=== PATIENT | male | born 1955 | race Caucasian/White ===

== ENCOUNTER → 2017-07-30 | Outpatient (CLI) | payer OTHER ==
--- NOTE | 2017-07-30 14:59 | MR ---
EXAMINATION TYPE: MR hip RT wo con DATE OF EXAM: 07/30/2017 COMPARISON: NONE HISTORY: Right hip pain TECHNIQUE: Standard multiplanar, multisequence MRI departmental protocol Multiplanar, multisequence images of the right were acquired. FINDINGS: The bilateral femoral heads maintain their normal rounded contours. No T1 hypointense linea r fracture line is identified. No subchondral fracture or evidence of avascular necrosis of either hi p. Well-circumscribed T2 predominantly hyperintense nodularity central zone is seen of the prostate glan d, likely related to benign prostate hyperplasia. No evidence of bowel dilation. Major flow voids are maintained. Bilateral hydroceles are partially visualized. With regards to the right hip there is acetabular roof sclerosis, small acetabular roof subchondral c ysts, and acetabular sourcil marginal osteophyte. There is no cam deformity of the femoral head neck junction. Although there is limitation of evaluation of the labrum on this nonarthrographic study the re appears to be sharply demarcated labral tear and detachment on PD sagittal oblique fat sat image 1 6 and 15 of the anterior labrum. Fluid is seen overlying the insertion site of the left gluteal musculature representing gluteal/great er trochanteric bursitis. Small amount of right subcutaneous edema is seen laterally over the gluteal musculature. Osseous bone marrow signal is within normal limits. There is a trace amount of left flu id within the the femoral acetabular joint. IMPRESSION: 1. Moderate left femoral acetabular arthropathy. 2. Findings suspicious for anterior superior labral tear and detachment. 3. Left greater trochanteric bursitis. 4. Small amount of subcutaneous edema lateral to the right gluteal musculature. 5. No evidence of femoral fracture or avascular necrosis. 6. Partially visualized bilateral hydroceles. 7. Partially visualized nodular changes of the prostate, possibly related to BPH.
== END | disposition home or self-care (01) ==
LOC: RADMRIMAIN 13:30
PROVIDERS: ATTEND Orthopaedic Surgery
DX: M70.61 Trochanteric bursitis, right hip (principal); M12.851 Other specific arthropathies, not elsewhere classified, right hip

== ENCOUNTER 2018-01-08 20:54 | Emergency (ER) | payer OTHER ==
[2018-01-08 21:08] VITALS: BP 171/73; PULSE 66; RESP 18; TEMP 96.9
[2018-01-08] MEDS ORDERED: IBUPROFEN 600 MG TAB PO STA (21:09)
--- NOTE | 2018-01-08 21:16 | ED ---
Upper Extremity HPI - General Chief Complaint: Extremity Injury, Upper Stated Complaint: fall/wrist injury-[facility] Time Seen by Provider: 01/08/18 21:01 Source: patient, RN notes reviewed Mode of arrival: ambulatory Limitations: no limitations - History of Present Illness Initial Comments: This is a 62-year-old male who presents to the emergency department with chief complaint of work-related right wrist/hand injury. 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 He states that he was walking and tripped. He states that he fell on an outstretched right hand. Patient complains of pain to the palmar aspect of his hand as well as the mid ventral wrist. Patient states that 7-8 weeks ago he had surgery performed by Dr. Nash Troy for trigger finger and carpal tunnel. Patient complains that after the fall, he is having difficulty making a fist due to the pain. Patient denies any other injuries or trauma. Denies fevers or chills, chest pain shortness of breath, abdominal pain, nausea or vomiting, dizziness or headache. - Related Data Allergies Allergy/AdvReac Type Severity Reaction Status Date / Time No Known Allergies Allergy Verified 01/08/18 21:07 Review of Systems ROS Statement: Those systems with pertinent positive or pertinent negative responses have been documented in the HPI. ROS Other: All systems not noted in ROS Statement are negative. Past Medical History Past Medical History: Hypertension History of Any Multi-Drug Resistant Organisms: None Reported Past Surgical History: Orthopedic Surgery Past Psychological History: No Psychological Hx Reported Smoking Status: Never smoker Past Alcohol Use History: None Reported General Exam - General Exam Comments Initial Comments: General: Awake and alert, well-developed; in no apparent distress. HEENT: Head atraumatic, normocephalic. Pupils are equal, round and reactive to light. Extraocular movements intact. Oropharynx moist without erythema or exudate. Neck: Supple. Normal ROM. Cardiovascular: Regular rate and rhythm. No murmurs, rubs or gallops. Chest symmetrical. Respiratory: Lungs clear to auscultation bilaterally. No wheezes, rales or rhonchi. Normal respiratory effort with no use of accessory muscles. Musculoskeletal: Well-healed incisional scars from carpal tunnel and trigger finger surgeries. Tenderness on palpation along length of palm midline. Patient has difficulty making a fist due to pain. Normal range of motion of the wrist and fingers. Sensation is intact. Radial pulses are 2+ equal and palpable bilaterally. No obvious respiratory distress. Skin: Waterflow, warm and dry without rashes or lesions. Neurological: Alert and oriented x3. CN II-XII grossly intact. Speech is fluent and answers are appropriate. No focal neuro deficits. Psychiatric: Normal mood and affect. No overt signs of depression or anxiety noted. Limitations: no limitations Course Vital Signs 01/08/18 21:05 Temperature 96.9 F L Pulse Rate 66 Respiratory 18 Rate Blood Pressure 171/73 O2 Sat by Pulse 95 Oximetry Medical Decision Making - Medical Decision Making This is a 62-year-old male who presents to the emergency department with chief complaint of work-related right hand/wrist injury. Patient states he fell on an alt stretched hand after tripping at work this evening. Patient reports trigger finger and carpal tunnel surgery 7-8 weeks ago. He states that he is having pain over his palm and is nervous that he messed up his surgery. 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 Denies any other injuries or trauma. X-rays of the right wrist and hand were obtained and revealed no acute abnormalities. Recommended that patient follow-up with Dr. Troy within 1-2 days for evaluation. Patient is in agreement with plan and voices understanding. He is in no acute distress and will be discharged home at this time. All questions answered. - Radiology Data Radiology results: report reviewed, image reviewed X-ray right wrist impression: No acute process. X-ray right hand impression: No acute process. Disposition Clinical Impression: Hand contusion Disposition: HOME SELF-CARE Condition: Good Instructions: Contusion in Children (ED), RICE Therapy (ED) Additional Instructions: Please follow-up with Dr. Troy within 1-2 days. Please rest, ice and take ibuprofen or Tylenol as needed for pain. Please follow up with primary care provider within 1-2 days. Return to emergency department if symptoms should worsen or any concerns arise. Is patient prescribed a controlled substance at d/c from ED?: No Referrals: Nicki Emerson MD [Primary Care Provider] - 1-2 days Jasen Troy DO [Doctor of Osteopathic Medicine] - 1-2 days Time of Disposition: 21:56
--- NOTE | 2018-01-08 21:45 | XR ---
PROCEDURE: XR hand complete RT 3 views DATE AND TIME: 01/08/2018 9:25 PM REFERRING PHYSICIAN: Risa Parsons CLINICAL INDICATION: PHH, pain injury TECHNIQUE: Department protocol. COMPARISON: None FINDINGS: There is no fracture or malalignment. The soft tissues are unremarkable. IMPRESSION: NO ACUTE PROCESS.
--- NOTE | 2018-01-08 21:46 | XR ---
PROCEDURE: XR wrist complete RT 4 views DATE AND TIME: 01/08/2018 9:28 PM REFERRING PHYSICIAN: Risa Parsons CLINICAL INDICATION: PHH, Pain TECHNIQUE: Department protocol. COMPARISON: None FINDINGS: There is no fracture or malalignment. The soft tissues are unremarkable. IMPRESSION: NO ACUTE PROCESS.
== END 2018-01-08 22:42 | disposition home or self-care (01) ==
LOC: EC 20:54
DX: S60.221A Contusion of right hand, initial encounter (principal); Z98.890 Other specified postprocedural states; W01.0XXA Fall on same level from slipping, tripping and stumbling without subsequent striking against object, initial encounter; Y93.01 Activity, walking, marching and hiking; Y92.69 Other specified industrial and construction area as the place of occurrence of the external cause; Y99.0 Civilian activity done for income or pay
CPT/HCPCS: 99283

== ENCOUNTER → 2018-05-06 | Outpatient (CLI) | payer OTHER ==
--- NOTE | 2018-05-07 10:02 | XR ---
EXAM TYPE: LUMBAR SPINE X RAY SERIES COMPARISON: NONE HISTORY: Lower back pain TECHNIQUE: 4 views are submitted. FINDINGS: Alignment is anatomic. The pedicles are intact. The transverse processes are intact. There is no s pondylolysis or spondylolisthesis. Multilevel vacuum disc and severe degenerative disc disease seen. Multilevel facet arthropathy identified. Vascular calcifications noted IMPRESSION: 1. Multilevel severe degenerative disc disease consider MRI follow-up.
== END | disposition home or self-care (01) ==
LOC: RADXRYALE 16:18
PROVIDERS: ATTEND Internal Medicine
DX: M51.36 Other intervertebral disc degeneration, lumbar region (principal)
CPT/HCPCS: 72110

== ENCOUNTER 2018-06-18 12:35 | Observation (INO) | payer OTHER ==
[2018-06-18] MEDS ORDERED: ASPIRIN 81 MG PO STA (13:03)
[2018-06-18] MEDS ORDERED: NITROGLYCERIN OINT 1 INCH/GM PACKET TOPICAL STA (13:03)
--- NOTE | 2018-06-18 13:06 | ED ---
General Adult HPI - General Chief complaint: Chest Pain Stated complaint: chest pain Time Seen by Provider: 06/18/18 12:48 Source: patient, RN notes reviewed, old records reviewed (Including computed tomography scan) Mode of arrival: wheelchair Limitations: no limitations - History of Present Illness Initial comments: Patient is a pleasant 8-year-old male returning to the emergency Department with complaints of chest discomfort. Patient has been in the hospital twice recently with similar symptoms. Patient has left AGAINST MEDICAL ADVICE twice recently. Patient states the second time he left because his insurance was about to run out. Patient has followed up with crime scene specialist and was advised again to come back to the emergency department with similar recommendations of needing heart catheterization. Patient states no discomfort at this time. Patient states he has been having symptoms for months or more. Patient states she has an ache in the left breast. No radiation. Patient did have dyspnea however that has not been a problem over the past couple of weeks. No associated nausea or diaphoresis. Patient has been fatigued. - Related Data Home Medications Medication Instructions Recorded Confirmed Lisinopril [Zestril] 10 mg PO DAILY 05/29/18 06/18/18 [place]-3 Fatty Acids/Fish Oil [Fish 1 cap PO DAILY 05/29/18 06/18/18 Oil 1,000 mg Softgel] Simvastatin [Zocor] 10 mg PO DAILY 05/29/18 06/18/18 Terazosin HCl 10 mg PO DAILY 05/29/18 06/18/18 Vit C/E/Zn/Coppr/Lutein/Zeaxan 1 cap PO DAILY 05/29/18 06/18/18 [Preservision Areds 2 Softgel] amLODIPine [Norvasc] 5 mg PO DAILY 05/29/18 06/18/18 Albuterol Inhaler [Ventolin Hfa 2 puff INHALATION RT-Q4H PRN 06/13/18 06/18/18 Inhaler] traZODone HCL [TraZODone HCl] 50 mg PO HS 06/13/18 06/18/18 Aspirin [Racine Aspirin EC] 81 mg PO BID 06/18/18 06/18/18 Ibuprofen [Motrin Ib] 600 mg PO BID 06/18/18 06/18/18 Allergies Allergy/AdvReac Type Severity Reaction Status Date / Time No Known Allergies Allergy Verified 12/05/18 12:46 Review of Systems ROS Statement: Those systems with pertinent positive or pertinent negative responses have been documented in the HPI. ROS Other: All systems not noted in ROS Statement are negative. Constitutional: Denies: fever Eyes: Denies: eye pain ENT: Denies: ear pain Respiratory: Reports: as per HPI Cardiovascular: Reports: chest pain Endocrine: Reports: fatigue Gastrointestinal: Denies: abdominal pain Genitourinary: Denies: dysuria Musculoskeletal: Denies: arthralgia Skin: Denies: rash Neurological: Denies: weakness Past Medical History Past Medical History: Hyperlipidemia, Hypertension, Prostate Disorder History of Any Multi-Drug Resistant Organisms: None Reported Past Surgical History: Appendectomy, Orthopedic Surgery, Tonsillectomy Past Psychological History: No Psychological Hx Reported Smoking Status: Former smoker Past Alcohol Use History: None Reported Past Drug Use History: None Reported General Exam Limitations: no limitations General appearance: alert, in no apparent distress Head exam: Present: atraumatic Eye exam: Present: normal appearance, PERRL ENT exam: Present: normal oropharynx Neck exam: Present: normal inspection Respiratory exam: Present: normal lung sounds bilaterally. Absent: chest wall tenderness Cardiovascular Exam: Present: regular rate, normal rhythm Expanded Peripheral pulses: 2+: Radial (R), Radial (L), Dorsalis Pedis (R), Dorsalis Pedis (L) GI/Abdominal exam: Present: soft. Absent: tenderness Extremities exam: Present: normal inspection. Absent: pedal edema, calf tenderness Neurological exam: Present: alert Psychiatric exam: Present: normal affect, normal mood Skin exam: Present: normal color Course Vital Signs 06/18/18 06/18/18 06/18/18 12:44 12:46 12:53 Temperature 98.5 F Pulse Rate 73 Pulse Rate [ 65 Ballroom Dancer ] Respiratory 18 Rate Blood Pressure 113/76 O2 Sat by Pulse 96 94 L Oximetry 06/18/18 06/18/18 06/18/18 13:00 14:00 15:00 Temperature Pulse Rate 71 65 69 Pulse Rate [ Ballroom Dancer ] Respiratory 16 16 16 Rate Blood Pressure 157/86 131/71 128/76 O2 Sat by Pulse 97 94 L 94 L Oximetry - Reevaluation(s) Reevaluation #1: 06/18/18 15:49 Case was discussed in detail with Dr. Hassan, who will admit covering for Dr. Emerson. EKG Findings - EKG Comments: EKG Findings:: Normal sinus rhythm 70. W[place] 156. QRS 108. QT 394. QTC 425. Left axis. Q waves V1 and V2. T wave inversion in V6. Medical Decision Making - Medical Decision Making Patient reevaluated and resting comfortably in bed. Symptom-free at this time. Patient and family updated on results and plan. Dr. Damon has been paged covering for Dr. Emerson. Cardiology and cardiothoracic surgeon will be consult. - Lab Data Result diagrams: 06/18/18 13:05 06/18/18 13:05 Lab Results 06/18/18 06/18/18 06/18/18 Range/Units 13:05 13:05 13:05 WBC 8.5 (3.8-10.6) k/uL RBC 4.76 (4.30-5.90) m/uL Hgb 14.8 (13.0-17.5) gm/dL Hct 45.0 (39.0-53.0) % MCV 94.5 (80.0-100.0) fL MCH 31.1 (25.0-35.0) pg MCHC 32.9 (31.0-37.0) g/dL RDW 13.2 (11.5-15.5) % Plt Count 201 (150-450) k/uL Neutrophils % 75 % Lymphocytes % 15 % Monocytes % 5 % Eosinophils % 2 % Basophils % 1 % Neutrophils # 6.4 (1.3-7.7) k/uL Lymphocytes # 1.3 (1.0-4.8) k/uL Monocytes # 0.4 (0-1.0) k/uL Eosinophils # 0.2 (0-0.7) k/uL Basophils # 0.1 (0-0.2) k/uL PT (9.0-12.0) sec INR (<1.2) APTT (22.0-30.0) sec Sodium 142 (137-145) mmol/L Potassium 4.6 (3.5-5.1) mmol/L Chloride 110 H (98-107) mmol/L Carbon Dioxide 27 (22-30) mmol/L Anion Gap 5 mmol/L BUN 24 H (9-20) mg/dL Creatinine 0.89 (0.66-1.25) mg/dL Est GFR (CKD-EPI)AfAm >90 (>60 ml/min/1.73 sqM) Est GFR (CKD-EPI)NonAf >90 (>60 ml/min/1.73 sqM) Glucose 108 H (74-99) mg/dL Calcium 9.2 (8.4-10.2) mg/dL Magnesium 2.0 (1.6-2.3) mg/dL Total Bilirubin 0.7 (0.2-1.3) mg/dL AST 20 (17-59) U/L ALT 27 (21-72) U/L Alkaline Phosphatase 56 (38-126) U/L Total Creatine Kinase 83 (55-170) U/L CK-MB (CK-2) 2.2 (0.0-2.4) ng/mL CK-MB (CK-2) Rel Index 2.7 Troponin I 0.016 (0.000-0.034) ng/mL Total Protein 6.5 (6.3-8.2) g/dL Albumin 3.7 (3.5-5.0) g/dL 06/18/ Range/Units 13:05 WBC (3.8-10.6) k/uL RBC (4.30-5.90) m/uL Hgb (13.0-17.5) gm/dL Hct (39.0-53.0) % MCV (80.0-100.0) fL MCH (25.0-35.0) pg MCHC (31.0-37.0) g/dL RDW (11.5-15.5) % Plt Count (150-450) k/uL Neutrophils % % Lymphocytes % % Monocytes % % Eosinophils % % Basophils % % Neutrophils # (1.3-7.7) k/uL Lymphocytes # (1.0-4.8) k/uL Monocytes # (0-1.0) k/uL Eosinophils # (0-0.7) k/uL Basophils # (0-0.2) k/uL PT 9.8 (9.0-12.0) sec INR 0.9 (<1.2) APTT 22.4 (22.0-30.0) sec Sodium (137-145) mmol/L Potassium (3.5-5.1) mmol/L Chloride (98-107) mmol/L Carbon Dioxide (22-30) mmol/L Anion Gap mmol/L BUN (9-20) mg/dL Creatinine (0.66-1.25) mg/dL Est GFR (CKD-EPI)AfAm (>60 ml/min/1.73 sqM) Est GFR (CKD-EPI)NonAf (>60 ml/min/1.73 sqM) Glucose (74-99) mg/dL Calcium (8.4-10.2) mg/dL Magnesium (1.6-2.3) mg/dL Total Bilirubin (0.2-1.3) mg/dL AST (17-59) U/L ALT (21-72) U/L Alkaline Phosphatase (38-126) U/L Total Creatine Kinase (55-170) U/L CK-MB (CK-2) (0.0-2.4) ng/mL CK-MB (CK-2) Rel Index Troponin I (0.000-0.034) ng/mL Total Protein (6.3-8.2) g/dL Albumin (3.5-5.0) g/dL - Radiology Data Radiology results: image reviewed (Chest x-ray has concern for aneurysmal aorta. ) Disposition Clinical Impression: Chest pain Disposition: ADMITTED IP TO THIS HOSP Is patient prescribed a controlled substance at d/c from ED?: No Decision Time: 15:00
[2018-06-18 13:40] LABS: Basophils # (A) 0.1 k/uL (0-0.2); Basophils % (A) 1 %; Eosinophils # (A) 0.2 k/uL (0-0.7); Eosinophils % (A) 2 %; HGB 14.8 gm/dL (13.0-17.5); Lymphocytes # (A) 1.3 k/uL (1.0-4.8); Lymphocytes % (A) 15 %; MCH 31.1 pg (25.0-35.0); MCHC 32.9 g/dL (31.0-37.0); MCV 94.5 fL (80.0-100.0); Mean Platelet Volume 7.5; Monocytes # (A) 0.4 k/uL (0-1.0); Monocytes % (A) 5 %; Neutrophils # (A) 6.4 k/uL (1.3-7.7); Neutrophils % (A) 75 %; Platelet Count 201 k/uL (150-450); RBC 4.76 m/uL (4.30-5.90); RDW 13.2 % (11.5-15.5); WBC 8.5 k/uL (3.8-10.6)
[2018-06-18 13:48] LABS: ALT 27 U/L (21-72); AST 20 U/L (17-59); Albumin 3.7 g/dL (3.5-5.0); Alkaline Phosphatase 56 U/L (38-126); Anion Gap 5 mmol/L; Blood Urea Nitrogen 24 mg/dL (9-20); Calcium 9.2 mg/dL (8.4-10.2); Carbon Dioxide 27 mmol/L (22-30); Chloride 110 mmol/L (98-107); Glucose 108 mg/dL (74-99); Potassium 4.6 mmol/L (3.5-5.1); Sodium 142 mmol/L (137-145); Total Bilirubin 0.7 mg/dL (0.2-1.3); Total Protein 6.5 g/dL (6.3-8.2)
[2018-06-18 13:57] LABS: INR 0.9 (<1.2); Partial Thromboplastin Time 22.4 sec (22.0-30.0); Prothrombin Time 9.8 sec (9.0-12.0)
--- NOTE | 2018-06-18 14:19 | XR ---
EXAMINATION TYPE: XR chest 2V DATE OF EXAM: 06/18/2018 COMPARISON: Prior chest 06/13/2018 HISTORY: Chest pain TECHNIQUE: Frontal and lateral views of the chest are obtained. FINDINGS: There is no focal air space opacity, pleural effusion, or pneumothorax seen. The cardiac silhouette size is within normal limits. The osseous structures are intact. There are overlying car diac leads. Aorta is aneurysmal and tortuous, dense. Increased AP diameter chest could be indicative of COPD. Pulmonary artery appears prominently, correlate for underlying pulmonary artery hypertension . IMPRESSION: No acute cardiopulmonary process. Aortic aneurysm as noted on prior CT. Additional findi ngs above.
[2018-06-18 14:48] LABS: Creatine Kinase MB 2.2 ng/mL (0.0-2.4); Troponin I 0.016 ng/mL (0.000-0.034)
[2018-06-18] MEDS ORDERED: NITROGLYCERIN SL TABS 0.4 MG TAB SUBLINGUAL PRN (15:00)
[2018-06-18] MEDS ORDERED: ALBUTEROL NEBULIZED 2.5 MG/3 ML INHALATION PRN (15:01)
[2018-06-18 15:59] VITALS: RESP 18
--- NOTE | 2018-06-18 16:14 | P.GSCN ---
<Hattie Reyes - Last Filed: 06/18/18 16:01> History of Present Illness Consult date: 06/18/18 Reason for Consult: thoracic aneurysm, surgical recommendations Requesting physician: You Saucedo History of present illness: This is a 62-year-old gentleman who follows with Dr. Nicki Emerson on an outpatient basis. He has a previous medical history of hypertension, hyperlipidemia, prostate disorder, and previous tobacco dependence. He presented to [facility] emergency room complains of intermittent chest pain with with dyspnea but without radiation, nausea, or diaphoresis for the last couple of months. He has been previously to the emergency room twice however he left AGAINST MEDICAL ADVICE. He has followed up with cardiology who recommended he come in for heart catheterization. Chest x-ray was completed which demonstrated no acute cardiopulmonary process. Apparently he had a CT of the chest in May 2018 which ruled out pulmonary embolism but did demonstrate aneurysmal ascending aorta without dissection measuring 5 cm per the radiologist read. Since he is back in the emergency room Dr. Harrison from cardiothoracic surgery was consulted for surgical recommendations regarding ascending aortic aneurysm. Review of Systems Review of systems was completed and is negative except as noted. - Cardiovascular Reports chest pain, Reports dyspnea on exertion - Respiratory Reports cough, Reports dyspnea Past Medical History Past Medical History: Hyperlipidemia, Hypertension, Prostate Disorder History of Any Multi-Drug Resistant Organisms: None Reported Past Surgical History: Appendectomy, Orthopedic Surgery, Tonsillectomy Past Psychological History: No Psychological Hx Reported Smoking Status: Former smoker Past Alcohol Use History: None Reported Past Drug Use History: None Reported Medications and Allergies Home Medications Medication Instructions Recorded Confirmed Type Lisinopril [Zestril] 10 mg PO DAILY 05/29/18 06/18/18 History [place]-3 Fatty Acids/Fish Oil [Fish 1 cap PO DAILY 05/29/18 06/18/18 History Oil 1,000 mg Softgel] Simvastatin [Zocor] 10 mg PO DAILY 05/29/18 06/18/18 History Terazosin HCl 10 mg PO DAILY 05/29/18 06/18/18 History Vit C/E/Zn/Coppr/Lutein/Zeaxan 1 cap PO DAILY 05/29/18 06/18/18 History [Preservision Areds 2 Softgel] amLODIPine [Norvasc] 5 mg PO DAILY 05/29/18 06/18/18 History Albuterol Inhaler [Ventolin Hfa 2 puff INHALATION RT-Q4H PRN 06/13/18 06/18/18 History Inhaler] traZODone HCL [TraZODone HCl] 50 mg PO HS 06/13/18 06/18/18 History Aspirin [[place] Aspirin EC] 81 mg PO BID 06/18/18 06/18/18 History Ibuprofen [Motrin Ib] 600 mg PO BID 06/18/18 06/18/18 History Allergies Allergy/AdvReac Type Severity Reaction Status Date / Time No Known Allergies Allergy Verified 06/18/18 12:46 Surgical - Exam Vital Signs Temp Pulse Resp BP Pulse Ox 98.5 F 73 18 113/76 96 06/18/18 12:44 06/18/18 12:44 06/18/18 12:44 06/18/18 12:44 06/18/18 12:44 - General well developed, well nourished, no distress, no pain, obese - Eyes PERRL, normal ocular movement - ENT no hearing loss - Neck no masses, no bruits, trachea midline - Respiratory normal expansion, normal respiratory effort, clear to auscultation - Cardiovascular Rhythm: regular Heart Sounds: normal: S1, S2 - Abdomen Abdomen: soft, non tender, bowel sounds - Genitourinary deferred - Rectum deferred - Integumentary no rash, no growths - Neurologic normal coordination, normal sensation - Musculoskeletal normal gait, normal posture - Psychiatric oriented to time, oriented to person, oriented to place, speech is normal, memory intact Results - Labs 06/18/18 13:05 06/18/18 13:05 Abnormal Lab Results - Last 24 Hours (Table) 06/18/18 Range/Units 13:05 Chloride 110 H (98-107) mmol/L BUN 24 H (9-20) mg/dL Glucose 108 H (74-99) mg/dL Diabetes panel 06/18/18 Range/Units 13:05 Sodium 142 (137-145) mmol/L Potassium 4.6 (3.5-5.1) mmol/L Chloride 110 H (98-107) mmol/L Carbon Dioxide 27 (22-30) mmol/L BUN 24 H (9-20) mg/dL Creatinine 0.89 (0.66-1.25) mg/dL Glucose 108 H (74-99) mg/dL Calcium 9.2 (8.4-10.2) mg/dL AST 20 (17-59) U/L ALT 27 (21-72) U/L Alkaline Phosphatase 56 (38-126) U/L Total Protein 6.5 (6.3-8.2) g/dL Albumin 3.7 (3.5-5.0) g/dL Calcium panel 06/18/18 Range/Units 13:05 Calcium 9.2 (8.4-10.2) mg/dL Albumin 3.7 (3.5-5.0) g/dL Pituitary panel 06/18/18 Range/Units 13:05 Sodium 142 (137-145) mmol/L Potassium 4.6 (3.5-5.1) mmol/L Chloride 110 H (98-107) mmol/L Carbon Dioxide 27 (22-30) mmol/L BUN 24 H (9-20) mg/dL Creatinine 0.89 (0.66-1.25) mg/dL Glucose 108 H (74-99) mg/dL Calcium 9.2 (8.4-10.2) mg/dL Adrenal panel 06/18/18 Range/Units 13:05 Sodium 142 (137-145) mmol/L Potassium 4.6 (3.5-5.1) mmol/L Chloride 110 H (98-107) mmol/L Carbon Dioxide 27 (22-30) mmol/L BUN 24 H (9-20) mg/dL Creatinine 0.89 (0.66-1.25) mg/dL Glucose 108 H (74-99) mg/dL Calcium 9.2 (8.4-10.2) mg/dL Total Bilirubin 0.7 (0.2-1.3) mg/dL AST 20 (17-59) U/L ALT 27 (21-72) U/L Alkaline Phosphatase 56 (38-126) U/L Total Protein 6.5 (6.3-8.2) g/dL Albumin 3.7 (3.5-5.0) g/dL - Imaging Chest x-ray: report reviewed, image reviewed CT scan - chest: report reviewed, image reviewed Assessment and Plan (1) Hypertension Current Visit: Yes Status: Chronic Code(s): I10 - ESSENTIAL (PRIMARY) HYPERTENSION SNOMED Code(s): 35896310 (2) Hyperlipidemia Current Visit: Yes Status: Chronic Code(s): E78.5 - HYPERLIPIDEMIA, UNSPECIFIED SNOMED Code(s): 17938921 (3) Tobacco dependence in remission Current Visit: No Status: Resolved Code(s): F17.201 - NICOTINE DEPENDENCE, UNSPECIFIED, IN REMISSION SNOMED Code(s): 649094905 (4) Chest pain Current Visit: Yes Status: Acute Code(s): R07.9 - CHEST PAIN, UNSPECIFIED SNOMED Code(s): 14806577 (5) Ascending aortic aneurysm Current Visit: Yes Status: Chronic Code(s): I71.2 - THORACIC AORTIC ANEURYSM , WITHOUT RUPTURE SNOMED Code(s): 954656684 Plan: The patient was seen and examined at the bedside in the observation unit with Dr. Harrison. Chart/diagnostics were reviewed. No surgical intervention is warranted at this time however we would recommend follow-up CT of the chest 6 months and he can follow up with us in the office to discuss the findings. We further recommend good blood pressure control as well as no heavy lifting or physical exertion. 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 Medical management per primary care service. Chest pain management per cardiology. Thank you for this consult. Please call us with any questions. Time with Patient: Greater than 30 <Jose M Harrison R - Last Filed: 06/19/18 08:19> Surgical - Exam Vital Signs Temp Pulse Resp BP Pulse Ox 98.5 F 73 18 113/76 96 06/18/18 12:44 06/18/18 12:44 06/18/18 12:44 06/18/18 12:44 06/18/18 12:44 Results - Labs 06/18/18 13:05 06/18/18 13:05 Abnormal Lab Results - Last 24 Hours (Table) 06/18/18 06/18/18 Range/Units 13:05 18:51 D-Dimer 0.74 H (<0.60) mg/L FEU Chloride 110 H (98-107) mmol/L BUN 24 H (9-20) mg/dL Glucose 108 H (74-99) mg/dL Diabetes panel 06/18/18 06/19/18 Range/Units 13:05 01:45 Sodium 142 (137-145) mmol/L Potassium 4.6 (3.5-5.1) mmol/L Chloride 110 H (98-107) mmol/L Carbon Dioxide 27 (22-30) mmol/L BUN 24 H (9-20) mg/dL Creatinine 0.89 (0.66-1.25) mg/dL Glucose 108 H (74-99) mg/dL Calcium 9.2 (8.4-10.2) mg/dL AST 20 (17-59) U/L ALT 27 (21-72) U/L Alkaline Phosphatase 56 (38-126) U/L Total Protein 6.5 (6.3-8.2) g/dL Albumin 3.7 (3.5-5.0) g/dL Triglycerides 91 (<150) mg/dL HDL Cholesterol 59 (40-60) mg/dL Calcium panel 06/18/18 Range/Units 13:05 Calcium 9.2 (8.4-10.2) mg/dL Albumin 3.7 (3.5-5.0) g/dL Pituitary panel 06/18/18 Range/Units 13:05 Sodium 142 (137-145) mmol/L Potassium 4.6 (3.5-5.1) mmol/L Chloride 110 H (98-107) mmol/L Carbon Dioxide 27 (22-30) mmol/L BUN 24 H (9-20) mg/dL Creatinine 0.89 (0.66-1.25) mg/dL Glucose 108 H (74-99) mg/dL Calcium 9.2 (8.4-10.2) mg/dL Adrenal panel 06/18/18 Range/Units 13:05 Sodium 142 (137-145) mmol/L Potassium 4.6 (3.5-5.1) mmol/L Chloride 110 H (98-107) mmol/L Carbon Dioxide 27 (22-30) mmol/L BUN 24 H (9-20) mg/dL Creatinine 0.89 (0.66-1.25) mg/dL Glucose 108 H (74-99) mg/dL Calcium 9.2 (8.4-10.2) mg/dL Total Bilirubin 0.7 (0.2-1.3) mg/dL AST 20 (17-59) U/L ALT 27 (21-72) U/L Alkaline Phosphatase 56 (38-126) U/L Total Protein 6.5 (6.3-8.2) g/dL Albumin 3.7 (3.5-5.0) g/dL Assessment and Plan Assessment: 5.0 cm ascen ao aneurysm without CP Rec F/U CT scan 10/31 and outpt f/u
--- NOTE | 2018-06-18 18:17 | P.HPIM ---
History of Present Illness 62-year-old pleasant gentleman was admitted for chest pain patient has a pleuritic chest pain on the left lower chest, sharp in nature radiating from back plasmatic pain mild pain. No associated diaphoresis no associated shortness of breath although patient has shortness of breath going on for some years. Patient had on and off chest pains in the past he was told by his vmware consultant to go to the emergency department may need cardiac catheterization or further workup but patient didn't end up staying in the hospital for these procedures and workup because of lack of insurance. As of this pain again he came back to the hospital. EKG showed some flattening or inverted T waves on the lateral leads which are present on the old EKGs as well. Patient positive troponin is negative. Patient any fever chills cough nausea vomiting. Chest x- ray did not show any pneumonic process Review of Systems REVIEW OF SYSTEMS: CONSTITUTIONAL: No fever, no malaise, no fatigue. HEENT: No recent visual problems or hearing problems. Denied any sore throat. CARDIOVASCULAR: No orthopnea, PND, no palpitations, no syncope. PULMONARY: No shortness of breath, no cough, no hemoptysis. GASTROINTESTINAL: No diarrhea, no nausea, no vomiting, no abdominal pain. Normoactive bowel sounds. NEUROLOGICAL: No headaches, no weakness, no numbness. HEMATOLOGICAL: Denies any bleeding or petechiae. GENITOURINARY: Denies any burning micturition, frequency, or urgency. MUSCULOSKELETAL/RHEUMATOLOGICAL: Denies any joint pain, swelling, or any muscle pain. ENDOCRINE: Denies any polyuria or polydipsia. The rest of the 14-point review of systems is negative. Past Medical History Past Medical History: Hyperlipidemia, Hypertension, Prostate Disorder Additional Past Medical History / Comment(s): macular degeneration, 3-4 concussions in his life. History of Any Multi-Drug Resistant Organisms: None Reported Past Surgical History: Appendectomy, Orthopedic Surgery, Tonsillectomy Additional Past Surgical History / Comment(s): rt carpal tunnel release, colonoscopy/polypectomy(benign) Past Anesthesia/Blood Transfusion Reactions: No Reported Reaction Additional Past Anesthesia/Blood Transfusion Reaction / Comment(s): clausterphobia Smoking Status: Former smoker - Past Family History Mother Family Medical History: Cancer Additional Family Medical History / Comment(s): bone cancer Father Family Medical History: Coronary Artery Disease (CAD), Dementia Additional Family Medical History / Comment(s): cardiac stents Medications and Allergies Home Medications Medication Instructions Recorded Confirmed Type Lisinopril [Zestril] 10 mg PO DAILY 05/29/18 06/18/18 History [place]-3 Fatty Acids/Fish Oil [Fish 1 cap PO DAILY 05/29/18 06/18/18 History Oil 1,000 mg Softgel] Simvastatin [Zocor] 10 mg PO DAILY 05/29/18 06/18/18 History Terazosin HCl 10 mg PO DAILY 05/29/18 06/18/18 History Vit C/E/Zn/Coppr/Lutein/Zeaxan 1 cap PO DAILY 05/29/18 06/18/18 History [Preservision Areds 2 Softgel] amLODIPine [Norvasc] 5 mg PO DAILY 05/29/18 06/18/18 History Albuterol Inhaler [Ventolin Hfa 2 puff INHALATION RT-Q4H PRN 06/13/18 06/18/18 History Inhaler] traZODone HCL [TraZODone HCl] 50 mg PO HS 06/13/18 06/18/18 History Aspirin [[place] Aspirin EC] 81 mg PO BID 06/18/18 06/18/18 History Ibuprofen [Motrin Ib] 600 mg PO BID 06/18/18 06/18/18 History Allergies Allergy/AdvReac Type Severity Reaction Status Date / Time No Known Allergies Allergy Verified 06/18/18 12:46 Physical Exam Vitals: Vital Signs Temp Pulse Pulse Pulse Resp BP BP 06/18/18 16:00 65 62 18 06/18/18 15:58 97.9 F 62 18 150/78 06/18/18 15:00 69 16 128/76 06/18/18 14:00 65 16 131/71 06/18/18 13:00 71 16 157/86 06/18/18 12:53 06/18/18 12:46 65 06/18/18 12:44 98.5 F 73 18 113/76 Pulse Ox 06/18/18 16:00 06/18/18 15:58 97 06/18/18 15:00 94 L 06/18/18 14:00 94 L 06/18/18 13:00 97 06/18/18 12:53 94 L 06/18/18 12:46 06/18/18 12:44 96 Intake and Output 06/18/18 06/18/18 06/18/18 06:59 14:59 22:59 Intake Total 240 Balance 240 Intake: Oral 240 Other: Voiding Method Toilet Weight 108.862 kg 111.8 kg PHYSICAL EXAMINATION: GENERAL: The patient is alert and oriented x3, not in any acute distress. Well developed, well nourished. HEENT: Pupils are round and equally reacting to light. EOMI. No scleral icterus. No conjunctival pallor. Normocephalic, atraumatic. No pharyngeal erythema. No thyromegaly. CARDIOVASCULAR: S1 and S2 present. No murmurs, rubs, or gallops. PULMONARY: Chest is clear to auscultation, no wheezing or crackles. ABDOMEN: Soft, nontender, nondistended, normoactive bowel sounds. No palpable organomegaly. MUSCULOSKELETAL: No joint swelling or deformity. EXTREMITIES: No cyanosis, clubbing, or pedal edema. NEUROLOGICAL: Gross neurological examination did not reveal any focal deficits. SKIN: No rashes. Results CBC & Chem 7: 06/18/18 13:05 06/18/18 13:05 Labs: Abnormal Lab Results - Last 24 Hours (Table) 06/18/18 Range/Units 13:05 Chloride 110 H (98-107) mmol/L BUN 24 H (9-20) mg/dL Glucose 108 H (74-99) mg/dL Thrombosis Risk Factor Assmnt - Choose All That Apply Any of the Below Risk Factors Present?: Yes Each Factor Represents 1 point: Age 41-60 years, Obesity (BMI >25) Other Risk Factors: No Other congenital or acquired thrombophilia - If yes, enter type in comment: No Thrombosis Risk Factor Assessment Total Risk Factor Score: 2 Thrombosis Risk Factor Assessment Level: Low Risk Assessment and Plan Plan: -Chest pain: Patient is admitted to rule out acute coronary syndromes, unstable angina. Patient will be evaluated by cardiology. Further management with the stress test or cardiac cath as per cardiology. Patient has pleuritic pain patient mostly has back pain radiating to the front. Although we need to rule out pulmonary embolism will obtain a d-dimer and if that's positive we will obtain at scan to rule out pulmonary embolism. -Obesity: Counseling was provided -Chronic low back pain -Hypertension -Benign prostatic hypertrophy -Hyperlipidemia For above-mentioned chronic medical problems patient will be resumed on appropriate home medications.
[2018-06-18] MEDS: NITROGLYCERIN OINT 1 INCH/GM PACKET TOPICAL SCH ×2 (19:15→23:01)
[2018-06-18 19:42] LABS: Creatine Kinase MB 1.8 ng/mL (0.0-2.4); Troponin I 0.02 ng/mL (0.000-0.034)
[2018-06-18] MEDS ORDERED: ACETAMINOPHEN TAB 325 MG TAB PO PRN (19:55)
[2018-06-18] MEDS ORDERED: traZODone HCL 50 MG TAB PO SCH (21:00)
--- NOTE | 2018-06-18 23:03 | CT ---
EXAMINATION TYPE: CT angio chest DATE OF EXAM: 06/18/2018 10:19 PM COMPARISON: 05/29/2018 HISTORY: Elevated D-dimer. CT DLP: 514.9 mGycm Automated exposure control for dose reduction was used. CONTRAST: CTA scan of the thorax is performed with IV Contrast, patient injected with 100ml mL of Isovue 370, p ulmonary embolism protocol. There are 3-D post processed images.. FINDINGS: The lungs are clear of infiltrate. There is no evidence of a pulmonary mass. There is some reticular nodular pulmonary density in the subpleural lateral left midlung field. There is mild pleural thicken ing at the right posterior lung base. There is no pleural effusion. Heart size is normal. There is sm all pericardial effusion. I see no filling defects in the pulmonary arteries. There are no hilar mass es. There is no mediastinal adenopathy. Thoracic aorta shows no dissection. There is aneurysm of the ascending aorta measures 4.5 cm. Bony thorax is intact. IMPRESSION: NO EVIDENCE OF PULMONARY EMBOLISM. THERE IS SOME RETICULAR NODULAR PERIPHERAL LEFT PULMONARY INFILTRA TE PROBABLY DUE TO INFLAMMATORY DISEASE THAT IS ESSENTIALLY NEW COMPARED TO OLD CHEST CT SCAN. THERE ARE PATCHY INTERSTITIAL FIBROTIC CHANGES. RIGHT POSTERIOR BASILAR PLEURAL SCARRING. STABLE THORACIC AORTIC ANEURYSM.
[2018-06-19 02:32] LABS: Cholesterol 153 mg/dL (<200); HDL Cholesterol 59 mg/dL (40-60); LDL Cholesterol,Calculated 76 mg/dL (0-99); Triglycerides 91 mg/dL (<150)
[2018-06-19 02:53] LABS: Creatine Kinase MB 1.8 ng/mL (0.0-2.4); Troponin I 0.023 ng/mL (0.000-0.034)
[2018-06-19] MEDS: NITROGLYCERIN OINT 1 INCH/GM PACKET TOPICAL SCH (05:42)
[2018-06-19] MEDS ORDERED: ALPRAZolam 0.25 MG TAB PO PRN (07:36)
[2018-06-19] MEDS ORDERED: ASPIRIN 325 MG TAB PO STA (07:36)
[2018-06-19] MEDS ORDERED: SODIUM CHLORIDE 0.9% 1,000 ML in EMPTY BAG 1 BAG IV ONE (07:36)
[2018-06-19] MEDS ORDERED: ALPRAZolam 0.5 MG TAB PO PRN (07:36)
[2018-06-19] MEDS ORDERED: ATORVASTATIN 80 MG TAB PO STA (07:36)
[2018-06-19] MEDS ORDERED: NITROGLYCERIN SL TABS 0.4 MG TAB SUBLINGUAL PRN (07:36)
--- NOTE | 2018-06-19 08:08 | CONS ---
CONSULTATION Mr. Antony is a 62-year-old male with a history of hyperlipidemia, history of hypertension and a remote history of smoking who presented with symptoms of dyspnea and chest discomfort. The patient has been seen by Dr. Love recently and has underwent an echocardiogram, the report is not available to me, but he was referred to the hospital last week to be admitted to undergo cardiac catheterization, but the patient elected to leave the hospital. He presents again with symptoms of chest discomfort and dyspnea. He denies any dizziness or palpitation. No syncope. No PND nor orthopnea. His chest discomfort is not always exertional in pattern but he feels that his breathing is worse than usual. He was told that he has abnormal EKG and a possible prior myocardial infarction. He was found to have an ascending aortic aneurysm on recent CAT scan in the emergency room. His coronary risk factors are remarkable for the prior history of smoking, history of hypertension and hyperlipidemia. MEDICATION: His medications include Zestril 10 mg daily, simvastatin 10 mg daily, Norvasc 5 mg daily, trazodone, , aspirin and Ventolin. REVIEW OF SYSTEMS: RESPIRATORY SYSTEM: He has no documented history of recent wheezing or cough. GI SYSTEM: No recent GI bleed. No peptic ulcer disease. SYSTEM: No dysuria or hematuria. NERVOUS SYSTEM: No history of stroke or seizure. PHYSICAL EXAMINATION: He is a 62-year-old male, alert, oriented, in no apparent distress. Blood pressure 136/70 with the heart rate in the 60s. HEAD: Normocephalic. EYES: Sclerae anicteric. NECK: Good carotid upstroke. No bruit. No jugular venous distention. LUNGS: Clear to auscultation. HEART: Regular rate and rhythm. S1, S2. No S3. No rub or gallop. ABDOMEN: Soft, nontender. Positive bowel sounds. No organomegaly. EXTREMITIES: No edema. Intact distal pulses. device was noted in the left lower extremity. LAB DATA: Lab data revealed troponin 0.016, 0.020, and 0.023. BUN and creatinine 24 and 0.89. Potassium 4.6. D-dimer 0.74. Hemoglobin 14.8 and white blood cell of 8.5. EKG revealed a sinus mechanism, left axis deviation, T-wave inversion in lead I, aVL as well as lateral precordial leads was noted in the past with poor R progression. Chest CT angiogram revealed no evidence of pulmonary embolism with an ascending aortic aneurysm of 4.5 cm. Chest x-ray shows no acute infiltrate. IMPRESSION: 1. Chest discomfort and dyspnea of unclear etiology with abnormal EKG and according to the patient abnormal echocardiogram. 2. History of hypertension. 3. Hyperlipidemia. 4. Remote history of smoking. 5. Stable ascending aortic aneurysm. RECOMMENDATION: I will obtain the results of his echocardiogram that was done in the office. I will recommend to proceed with a coronary angiography to assess his status and guide his treatment. The rationale behind the procedure as well as the risks and complications were discussed with the patient who is in full understanding and agreement. Thank you for this consult. We will follow with you. ALEXANDRA / MONICA: [id number] /
[2018-06-19] MEDS ORDERED: ASPIRIN 325 MG TAB PO SCH (09:00)
[2018-06-19] MEDS ORDERED: amLODIPine 5 MG TAB PO SCH (09:00)
[2018-06-19] MEDS ORDERED: ATORVASTATIN 10 MG TAB PO SCH (09:00)
[2018-06-19] MEDS ORDERED: DOXAZOSIN 4 MG TAB PO SCH ×2 (09:00→21:00)
[2018-06-19] MEDS ORDERED: NON-FORMULARY DRUG (Omega-3 Fatty Acids/Fish Oil [Fish Oil 1,000 Mg Softgel] 1 CAP) PO SCH (09:00)
[2018-06-19] MEDS ORDERED: LISINOPRIL 10 MG TAB PO SCH (09:00)
[2018-06-19] MEDS ORDERED: VERAPAMIL 2.5 MG/ML 2 ML AMP ONE (13:10)
[2018-06-19] MEDS ORDERED: LIDOCAINE 1% INJ 10MG/ML (20 ML MDV) ONE (13:10)
[2018-06-19] MEDS ORDERED: fentaNYL (PF) 50 MCG/ML 2 ML AMP ONE (13:15)
[2018-06-19] MEDS ORDERED: fentaNYL (PF) 50 MCG/ML 2 ML AMP IV ONE (13:18)
[2018-06-19] MEDS ORDERED: LIDOCAINE 1% INJ 10MG/ML (20 ML MDV) SQ ONE (13:20)
[2018-06-19] MEDS ORDERED: MIDAZOLAM 2 MG/2 ML VIAL ONE (13:20)
[2018-06-19] MEDS ORDERED: IV FLUID CONTINUATION 800 ML IV ONE (13:21)
[2018-06-19] MEDS: MIDAZOLAM 2 MG/2 ML VIAL IVP ONE ×2 (13:21→13:23)
[2018-06-19] MEDS ORDERED: VERAPAMIL SYRINGE (5 MG/10 ML) INTRAARTER ONE (13:22)
[2018-06-19] MEDS ORDERED: HEPARIN SODIUM 1,000 UN/ML (10ML VL) ONE (13:26)
[2018-06-19] MEDS ORDERED: HEPARIN SODIUM 1,000 UN/ML (10ML VL) IV ONE (13:28)
[2018-06-19] MEDS ORDERED: IOPAMIDOL-370 125ML BTL INJ ONE (13:38)
[2018-06-19] MEDS ORDERED: IOPAMIDOL-370 100ML BTL INJ ONE (13:46)
[2018-06-19] MEDS ORDERED: RX INFO: IV CONTRAST WAS GIVEN 1 EACH MISC MISCELLANE PRN (13:56)
[2018-06-19] MEDS ORDERED: METOPROLOL TARTRATE 25 MG TAB PO SCH (14:00)
[2018-06-19] MEDS ORDERED: SODIUM CHLORIDE 0.9% 1,000 ML IV SCH (14:00)
--- NOTE | 2018-06-19 15:27 | P.DS ---
Providers Date of admission: 06/18/18 15:00 Attending physician: Servando Weeks MD Consults: 06/18/18 15:00 Consult Physician Urgent Consulting Provider: Angy Cuadra Consult Reason/Comments: thoraic aneurysm Do you want consulting provider notified?: Yes Consult Physician Urgent Consulting Provider: Judit Love Consult Reason/Comments: cp Do you want consulting provider notified?: Yes Primary care physician: Nicki [place] [employer] Course: 62-year-old pleasant gentleman was admitted for chest pain patient has a pleuritic chest pain on the left lower chest, sharp in nature radiating from back plasmatic pain mild pain. No associated diaphoresis no associated shortness of breath although patient has shortness of breath going on for some years. Patient had on and off chest pains in the past he was told by his swage toolsetter to go to the emergency department may need cardiac catheterization or further workup but patient didn't end up staying in the hospital for these procedures and workup because of lack of insurance. As of this pain again he came back to the hospital. EKG showed some flattening or inverted T waves on the lateral leads which are present on the old EKGs as well. Patient positive troponin is negative. Patient any fever chills cough nausea vomiting. Chest x- ray did not show any pneumonic process 06/19/2018 Patient is undergoing cardiac catheterization today with a negative patient will be discharged today. PHYSICAL EXAMINATION: GENERAL: The patient is alert and oriented x3, not in any acute distress. Well developed, well nourished. HEENT: Pupils are round and equally reacting to light. EOMI. No scleral icterus. No conjunctival pallor. Normocephalic, atraumatic. No pharyngeal erythema. No thyromegaly. CARDIOVASCULAR: S1 and S2 present. No murmurs, rubs, or gallops. PULMONARY: Chest is clear to auscultation, no wheezing or crackles. ABDOMEN: Soft, nontender, nondistended, normoactive bowel sounds. No palpable organomegaly. MUSCULOSKELETAL: No joint swelling or deformity. EXTREMITIES: No cyanosis, clubbing, or pedal edema. NEUROLOGICAL: Gross neurological examination did not reveal any focal deficits. SKIN: No rashes. 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 for which she'll need to follow with pulmonology as an outpatient -Obesity -Chronic low back pain -Hypertension -Benign prostatic hypertrophy -Hyperlipidemia Plan - Discharge Summary Discharge Rx Participant: No New Discharge Prescriptions: No Action Simvastatin [Zocor] 10 mg PO DAILY Lisinopril [Zestril] 10 mg PO DAILY amLODIPine [Norvasc] 5 mg PO DAILY Terazosin HCl 10 mg PO DAILY Vit C/E/Zn/Coppr/Lutein/Zeaxan [Preservision Areds 2 Softgel] 1 cap PO DAILY [place]-3 Fatty Acids/Fish Oil [Fish Oil 1,000 mg Softgel] 1 cap PO DAILY Albuterol Inhaler [Ventolin Hfa Inhaler] 2 puff INHALATION RT-Q4H PRN PRN Reason: Dyspnea traZODone HCL [TraZODone HCl] 50 mg PO HS Ibuprofen [Motrin Ib] 600 mg PO BID Aspirin [[place] Aspirin EC] 81 mg PO BID Discharge Medication List Lisinopril [Zestril] 10 mg PO DAILY 05/29/18 [History] [place]-3 Fatty Acids/Fish Oil [Fish Oil 1,000 mg Softgel] 1 cap PO DAILY [History] Simvastatin [Zocor] 10 mg PO DAILY 05/29/18 [History] Terazosin HCl 10 mg PO DAILY 05/29/18 [History] Vit C/E/Zn/Coppr/Lutein/Zeaxan [Preservision Areds 2 Softgel] 1 cap PO DAILY [History] amLODIPine [Norvasc] 5 mg PO DAILY 05/29/18 [History] Albuterol Inhaler [Ventolin Hfa Inhaler] 2 puff INHALATION RT-Q4H PRN 06/13/18 [ History] traZODone HCL [TraZODone HCl] 50 mg PO HS 06/13/18 [History] Aspirin [[place] Aspirin EC] 81 mg PO BID 06/18/18 [History] Ibuprofen [Motrin Ib] 600 mg PO BID 06/18/18 [History] Follow up Appointment(s)/Referral(s): Nicki Emerson MD [Primary Care Provider] - 1-2 days Judit Love MD [STAFF PHYSICIAN] - 2 Weeks
[2018-06-19 16:03] VITALS: BP 146/78; PULSE 63; TEMP 98.3
--- NOTE | 2018-06-19 16:17 | CC ---
CARDIAC CATHETERIZATION REPORT Mr. Antony is a 62-year-old male known history of hypertension, hyperlipidemia, who has been complaining of chest discomfort and an abnormal EKG with T-wave inversion anteriorly laterally. He also had evidence of ascending aortic aneurysm. In view of that, recommendation made regarding cardiac catheterization. The procedures as well as risks and complications were discussed with the patient who is in full understanding and agreement. PROCEDURE: Patient was brought to laborer heading in a fasting semisedated state, after receiving fentanyl and Benadryl and achieving moderate conscious sedated state. Using Xylocaine anesthesia and Seldinger technique, 6-Honduran sheath was introduced in the right radial artery. Selective right and left coronary angiography was performed using 5-Honduran 4 bend left Gonzalo catheter and a 6-Honduran Cesar catheter used to cannulate the right coronary artery. Images of the coronary arteries including hemiaxial views were obtained. Following that, a 5-Honduran tight pigtail catheter was introduced into the left ventricle and a 30 degree FARRELL view of the left ventricle was obtained. Following that, an any BETY view of the ascending aorta was performed. Following that, the catheter and sheath was removed. Hemostasis was obtained with deployment of a TR band. There was no immediate complications. Patient is returned to his room in stable condition. Of note, the patient received 5000 units of intravenous heparin as well as intra-arterial verapamil. FINDINGS: LEFT MAIN: This is a short size vessel bifurcating into left circumflex, left anterior descending artery, left main coronary artery has no evidence of high-grade stenosis. LEFT ANTERIOR DESCENDING CORONARY ARTERY: This vessel, tapers down in the distal third, giving rise to one diagonal branch of large caliber in mid segment. After the diagonal branch, there is a small plaque of 20-30 percent. The rest of the vessel has no high-grade stenosis. LEFT CIRCUMFLEX: This is a large dominant vessel, giving rise to 3 obtuse marginal branches. The first one is very proximal distally bifurcating into PDA and posterolateral segment and branches. The left circumflex as well as branches have no evidence of obstructive coronary disease. RIGHT CORONARY ARTERY: This is a codominant vessel, moderate in caliber giving rise to a PDA. The right coronary artery and its branches have no evidence of obstructive coronary artery disease. LEFT VENTRICULOGRAM: Left ventriculogram was performed in 30 degree FARRELL view and reveals normal left ventricular size with mild global hypokinesis. Estimated ejection fraction 45-50 percent. There was arrhythmia induced mild regurgitation. AORTOGRAM: Aortogram was performed in the BETY view and revealed a dilated ascending aorta with a tricuspid aortic valve and the appearance of 2+ aortic regurgitation. HEMODYNAMICS: There was no gradient across the aortic valve. The ventricle end-diastolic pressure was 20 mmHg. CONCLUSION: 1. Mild disease in the left anterior descending artery in the mid segment. 2. Mildly impaired left ventricular systolic function. 3. Ascending aortic aneurysm with 2+ aortic regurgitation. RECOMMENDATIONS: In view of findings and anatomy, I have recommended continued medical therapy with aggressive coronary risk modifications that have been initiated with close followup of his aortic aneurysm. Those findings and recommendations were discussed with the patient and he was in full understanding and agreement. Duration of procedure: 31 minutes. MMNASEEM / MARGARITON: [id number] /
[2018-06-20] MEDS ORDERED: ATORVASTATIN 40 MG TAB PO SCH (09:00)
== END 2018-06-19 20:15 | disposition home or self-care (01) ==
LOC: EC 12:35 → 1SOBS 15:00
PROVIDERS: ADMIT Internal Medicine; ATTEND Internal Medicine
DX: R07.81 Pleurodynia (principal); I25.10 Atherosclerotic heart disease of native coronary artery without angina pectoris; E66.9 Obesity, unspecified; E78.5 Hyperlipidemia, unspecified; G89.29 Other chronic pain; M54.5 Low back pain; Z71.3 Dietary counseling and surveillance; H35.30 Unspecified macular degeneration; I10 Essential (primary) hypertension; I35.1 Nonrheumatic aortic (valve) insufficiency; I71.2 Thoracic aortic aneurysm, without rupture; N40.0 Benign prostatic hyperplasia without lower urinary tract symptoms; Z68.34 Body mass index [BMI] 34.0-34.9, adult; Z79.899 Other long term (current) drug therapy; Z80.8 Family history of malignant neoplasm of other organs or systems; Z82.49 Family history of ischemic heart disease and other diseases of the circulatory system; Z90.49 Acquired absence of other specified parts of digestive tract; Z79.1 Long term (current) use of non-steroidal anti-inflammatories (NSAID); Z79.82 Long term (current) use of aspirin; Z87.891 Personal history of nicotine dependence
CPT/HCPCS: 96360; 96361; 99285; 36415; 93005; 93458; 85379; 80061; 80053; 82550 ×2; 82553 ×2; 83735; 84484 ×2; 85025; 85610; 85730; 71046; 71275; G0378 ×2; C1894; C1769; J2250; J2001; J3010; J1644; Q9967 ×3

== ENCOUNTER → 2019-01-07 | Outpatient (CLI) | payer OTHER ==
[~2019-01-07] MED LIST: IODINE/POTASS IOD (LUGOLS) 8 ML BTL TOPICAL ONE
--- NOTE | 2019-01-07 16:46 | NM ---
EXAMINATION TYPE: NM DatScan Brain SPECT DATE OF EXAM: 01/07/2019 COMPARISON: NONE HISTORY: Essential tremor TECHNIQUE: 10 drops of Lugol's solution was administered 1 hour prior to injection as a thyroid bloc matt agent. After the administration of 4.41 mCi I-123 Ioflupane DaTscan. Images obtained 3 hours p ost injection. SPECT images of the brain were acquired with axial and coronal reconstructions. FINDINGS: Abnormal asymmetric uptake along the striata is noted. Normal shape of uptake is noted on the left, a bnormal shape present on the right. IMPRESSION: Abnormal ISAAC scan
== END | disposition home or self-care (01) ==
LOC: RADNMMAIN 10:40
PROVIDERS: ATTEND Psychiatry & Neurology Neurology
DX: R94.02 Abnormal brain scan (principal); G25.0 Essential tremor
CPT/HCPCS: 78607; A9584

== ENCOUNTER → 2019-01-19 | Outpatient (CLI) | payer OTHER ==
--- NOTE | 2019-01-19 09:53 | CT ---
CT CHEST FOR PULMONARY EMBOLISM. EXAMINATION TYPE: CT angio chest DATE OF EXAM: 01/19/2019 INDICATION: Follow up ascending aortic aneurysm. CT DLP: 463.4 mGycm, Automated exposure control for dose reduction was used. CONTRAST: Patient injected with 100 mL of Isovue 370. COMPARISON: 06/18/2018 TECHNIQUE: CT of the chest is performed on a spiral scan at 2 mm thick sections. Study is performed with intravenous contrast timed for evaluation for ascending thoracic aortic aneurysm. This will limi t additional portions of the evaluation. 3-D MIP images reconstructed by the technologist are review ed on the computer in the coronal and sagittal planes. FINDINGS: Portion of the thyroid visualized is normal. There is a three-vessel arch. The ascending thoracic aorta at the aortic root is a transverse dimension of 4.5 cm. The ascending th oracic aorta at the level of the main pulmonary artery is an AP dimension of 4.6 cm. Aortic arch has a transverse dimension of 3.2 cm. The descending thoracic aorta tapers normally through its visualize d course has an AP dimension 2.6 cm at the diaphragm. No mediastinal or hilar adenopathy enlarged by CT criteria is evident. The ascending aorta diameter at the level of the main pulmonary artery is 4.6 cm. The main pulmonar y artery diameter at the bifurcation is 3.6 cm. Lung windows are clear. Limited CT section through the upper abdomen are unremarkable. IMPRESSIONS: 1. Ascending thoracic aortic aneurysm appears essentially stable from comparison.
== END | disposition home or self-care (01) ==
LOC: RADCTMAIN 08:14
PROVIDERS: ATTEND Thoracic Surgery (Cardiothoracic Vascular Surgery)
DX: I71.2 Thoracic aortic aneurysm, without rupture (principal)
CPT/HCPCS: 71275; Q9967

== ENCOUNTER → 2020-01-25 | Outpatient (CLI) | payer OTHER ==
--- NOTE | 2020-01-25 13:48 | CT ---
EXAMINATION TYPE: CT angio chest DATE OF EXAM: 01/25/2020 COMPARISON: Prior CT 01/19/2019 HISTORY: Follow up scan for thoracic aortic aneurysm. CT DLP: 527 mGycm Automated exposure control for dose reduction was used. CONTRAST: CTA scan of the thorax is performed with IV Contrast, patient injected with 100 mL of Isovue 370, pul monary embolism protocol. MIP images are created and reviewed. 3D reconstructed images are created on an independent workstation and reviewed. FINDINGS: LUNGS: The lungs are grossly clear, there is no concerning parenchymal mass or nodule identified. T here is no pleural effusion or pneumothorax seen. The tracheobronchial tree is patent. AORTA: Aortic root measures approximately 4.7 cm, proximal ascending aorta measures 4.9 cm, proximal descending aorta is 3.4 cm, the aorta at the level of the aortic hiatus measures 2.8 cm. MEDIASTINUM: There is satisfactory enhancement of the pulmonary artery and its branches, there is no CT evidence for pulmonary embolism. There are no greater than 1 cm hilar or mediastinal lymph nodes. Small pericardial effusion is seen. Pulmonary artery measures 3.8 cm. OTHER: Left adrenal low dense mass is again seen and measures approximately 4 cm greatest dimension which may have increased slightly in size. There is some reflux of contrast into the inferior vena ca va and hepatic veins, correlate for possible right heart failure. IMPRESSION: AORTIC ANEURYSM DESCRIBED. Additional findings above.
== END | disposition home or self-care (01) ==
LOC: RADCTMAIN 11:47
PROVIDERS: ATTEND Thoracic Surgery (Cardiothoracic Vascular Surgery)
DX: I31.3 Pericardial effusion (noninflammatory) (principal); I71.9 Aortic aneurysm of unspecified site, without rupture
CPT/HCPCS: 71275; Q9967

== ENCOUNTER 2020-12-20 20:29 | Emergency (ER) | payer OTHER ==
[2020-12-20 20:46] VITALS: BP 150/84; PULSE 85; RESP 18; TEMP 97.9
--- NOTE | 2020-12-20 21:16 | ED ---
General Adult HPI - General Chief complaint: ENT Stated complaint: Coughing up blood Time Seen by Provider: 12/20/20 20:47 Source: patient Mode of arrival: ambulatory Limitations: no limitations - History of Present Illness Initial comments: 65 year-old male patient presents to the emergency department for evaluation after having some blood in his sputum. He states he had a coughing episode and had a "glob" of blood in his sputum. Patient states that he has had a sore throat since being put to sleep for an MRI about three weeks ago. States the sore spot is on the right side and is concerned this may be the source of the bleeding. He denies any chest pain or shortness of breath. Denies fever or chills. Denies any history of hemoptysis. Denies use of blood thinner. Denies calf pain or leg swelling. Patient denies any recent rash, cough, abdominal pain, nausea, vomiting, diarrhea, constipation, back pain, numbness, tingling, dizziness, weakness, hematuria, dysuria, urinary urgency, urinary frequency, headache, visual changes, or any other complaints. - Related Data Home Medications Medication Instructions Recorded Confirmed [place]-3 Fatty Acids/Fish Oil [Fish 1 cap PO DAILY 05/29/18 06/18/18 Oil 1,000 mg Softgel] Simvastatin [Zocor] 10 mg PO DAILY 05/29/18 06/18/18 Terazosin HCl 10 mg PO DAILY 05/29/18 06/18/18 Vit C/E/Zn/Coppr/Lutein/Zeaxan 1 cap PO DAILY 05/29/18 06/18/18 [Preservision Areds 2 Softgel] amLODIPine [Norvasc] 5 mg PO DAILY 05/29/18 06/18/18 lisinopriL [Zestril] 10 mg PO DAILY 05/29/18 06/18/18 Albuterol Inhaler (Mhu) [Ventolin 2 puff INHALATION RT-Q4H PRN 06/13/18 06/18/18 Hfa Inhaler (Mhu)] traZODone HCL [TraZODone HCl] 50 mg PO HS 06/13/18 06/18/18 Aspirin [Boody Aspirin EC] 81 mg PO BID 06/18/18 06/18/18 Ibuprofen [Motrin Ib] 600 mg PO BID 06/18/18 06/18/18 Previous Rx's Medication Instructions Recorded Ciprofloxacin HCl [Cipro] 500 mg PO Q12HR #20 tablet 03/12/20 Allergies Allergy/AdvReac Type Severity Reaction Status Date / Time No Known Allergies Allergy Verified 12/20/20 20:42 Review of Systems ROS Statement: Those systems with pertinent positive or pertinent negative responses have been documented in the HPI. ROS Other: All systems not noted in ROS Statement are negative. Past Medical History Past Medical History: Hyperlipidemia, Hypertension, Prostate Disorder Additional Past Medical History / Comment(s): PARKINSON History of Any Multi-Drug Resistant Organisms: None Reported Past Surgical History: Appendectomy, Tonsillectomy Additional Past Surgical History / Comment(s): rt carpal tunnel release, colonoscopy/polypectomy(benign), Past Anesthesia/Blood Transfusion Reactions: No Reported Reaction Additional Past Anesthesia/Blood Transfusion Reaction / Comment(s): clausterphobia Past Psychological History: Depression Smoking Status: Current some day smoker, Light tobacco smoker Past Alcohol Use History: None Reported Past Drug Use History: Marijuana - Past Family History Mother Family Medical History: Cancer Additional Family Medical History / Comment(s): bone cancer Father Family Medical History: Coronary Artery Disease (CAD), Dementia Additional Family Medical History / Comment(s): cardiac stents General Exam Limitations: no limitations General appearance: alert, in no apparent distress, other (This is a well- developed, well-nourished adult male patient in no acute distress. Vital signs upon presentation are temperature 97.9F and pulse 85, respirations 18, blood pressure 150/84, pulse ox 97% on room air.) Eye exam: Present: normal appearance, PERRL, EOMI. Absent: scleral icterus, conjunctival injection, periorbital swelling Respiratory exam: Present: normal lung sounds bilaterally. Absent: respiratory distress, wheezes, rales, rhonchi, stridor Cardiovascular Exam: Present: regular rate, normal rhythm, normal heart sounds. Absent: systolic murmur, diastolic murmur, rubs, gallop, clicks GI/Abdominal exam: Present: soft, normal bowel sounds. Absent: distended, tenderness, guarding, rebound, rigid Neurological exam: Present: alert, oriented X3, CN II-XII intact Psychiatric exam: Present: normal affect, normal mood Skin exam: Present: warm, dry, intact, normal color. Absent: rash Course Vital Signs 12/20/20 12/20/20 20:42 21:50 Temperature 97.9 F 97.9 F Pulse Rate 85 85 Respiratory 18 18 Rate Blood Pressure 150/84 150/84 O2 Sat by Pulse 97 97 Oximetry Medical Decision Making - Medical Decision Making 65 year-old male patient presents to the emergency department for evaluation of sore throat x3 weeks and an episode of coughing with bloody sputum today. Physical examination revealed clear equal lung sounds. Pharynx was clear of blood. He is afebrile. V/S within normal ranges. Chest xray negative. Patient states he feels well other than the sore throat. He will be discharged to follow up with the ENT specialist for further evaluation as soon as possible. He verbalizes understanding and agrees with this plan. Discussed the case with my attending Dr. Robles. Just after discharge patient returned to the ER with another episode of bloody sputum. State she can feel the build up in his throat. I did re-examine his throat there is a bleeding area to the right pharynx posterior just beneath the right tonsil. Patient is quite concerned. I did offer to admit him to observation and have ENT see him in the morning. Patient declined. We discussed drinking ice water when the bleeding starts. He is instructed to return immediately if the bleeding worsens. He will call ENT first thing in the morning. - Radiology Data Radiology results: report reviewed, image reviewed 2 view x-ray of the chest is obtained. Report was reviewed in its entirety. Impression by Dr. Browne shows normal chest. No change. Disposition Clinical Impression: Hemoptysis, Sore throat Disposition: HOME SELF-CARE Condition: Good Instructions (If sedation given, give patient instructions): Hemoptysis (ED) Additional Instructions: Follow-up with ENT specialist for further evaluation as soon as possible. Return for any new, worsening, or concerning symptoms. Is patient prescribed a controlled substance at d/c from ED?: No Referrals: Nicki Emerson MD [Primary Care Provider] - 1-2 days Jamie Corey MD [STAFF PHYSICIAN] - 1-2 days Time of Disposition: 21:44
--- NOTE | 2020-12-20 21:27 | XR ---
EXAMINATION TYPE: XR chest 2V DATE OF EXAM: 12/20/2020 COMPARISON: 06/18/2018 HISTORY: Hemoptysis TECHNIQUE: FINDINGS: Heart is normal. Lungs are clear of consolidation. There are no hilar masses. Bony thorax i s intact. The pulmonary vascularity is normal. IMPRESSION: Normal chest. No change.
== END 2020-12-20 21:50 | disposition home or self-care (01) ==
LOC: EC 20:29
DX: R04.2 Hemoptysis (principal); J02.9 Acute pharyngitis, unspecified; I10 Essential (primary) hypertension; E78.5 Hyperlipidemia, unspecified; F32.9 Major depressive disorder, single episode, unspecified; F17.200 Nicotine dependence, unspecified, uncomplicated; F12.90 Cannabis use, unspecified, uncomplicated; Z79.82 Long term (current) use of aspirin
CPT/HCPCS: 71046; 99283

== ENCOUNTER → 2021-02-02 | Outpatient (CLI) | payer OTHER ==
--- NOTE | 2021-02-02 12:25 | CT ---
EXAMINATION TYPE: CT angio chest DATE OF EXAM: 02/02/2021 COMPARISON: 01/25/2020 HISTORY: Thoracic aortic aneurysm. CT DLP: 637 mGycm CONTRAST: CTA thoracic aorta with 3-D reconstruction is performed and without and with IV Contrast, patient inj ected with 100 mL of Isovue 370. Contrast CTA of the thoracic aorta was performed from the lung apex through the upper abdomen. 3D re construction imaging obtained at a separate workstation. CT Chest: THORACIC AORTA: Ascending thoracic aortic aneurysm measuring 4.6 cm AP dimension versus 4.7 cm previo usly. The remainder of the thoracic aorta is of normal caliber. Mild atheromatous changes seen. Ther e is no evidence for dissection or periaortic collection. LUNGS: The lungs are clear and free of infiltrate or atelectasis. No pulmonary nodule or mass is det ected. No pleural effusion or CT evidence of interstitial lung disease. MEDIASTINUM: No evidence for mediastinal hematoma. The heart is not enlarged. No evidence for med iastinal mass or adenopathy. HILAR STRUCTURES: No evidence for mass. No hilar adenopathy is appreciated. OTHER: Left adrenal mass measures 4.3 cm and is compatible with adenoma. IMPRESSION- Essentially stable and uncomplicated ascending thoracic aorta.
== END | disposition home or self-care (01) ==
LOC: RADCTMAIN 11:05
PROVIDERS: ATTEND Thoracic Surgery (Cardiothoracic Vascular Surgery)
DX: I71.2 Thoracic aortic aneurysm, without rupture (principal)
CPT/HCPCS: 71275; Q9967

== ENCOUNTER → 2021-04-18 | Outpatient (CLI) | payer OTHER ==
--- NOTE | 2021-04-18 11:12 | US ---
EXAMINATION TYPE: US scrotum with doppler. Grayscale and color Doppler Duplex imaging performed of [place] scrotum. DATE OF EXAM: 04/18/2021 COMPARISON: NONE CLINICAL HISTORY: N50.819 Testicular pain. Left testicular pain. EXAM MEASUREMENTS: TESTICLES: Right Testicle: 4.1 x 3.1 x 2.4 cm Left Testicle: 4.2 x 2.4 x 2.3 cm EPIDIDYMIS HEAD: Right Epididymis: 0.6 x 0.8 x 1.0 cm Left Epididymis: 0.9 x 1.3 x 1.5 cm -Anechoic area seen in right epididymal head: 0.3 x 0.2 x 0.3 cm. -2 anechoic areas seen in left epididymal head, larger measures: 0.4 x 0.7 x 0.7 cm. Doppler performed to assess for testicular vascularity; bilateral color flow and waveforms are seen. Presence of hydroceles: Right measures 5.2 x 5.7 x 1.2 cm. Left measures 3.5 x 2.2 x 2.3 cm. Presence of varicoceles: Prominent vessels seen lateral to left testicle measuring 2.4 mm. There are single punctate calcifications marked in both testicles. There are moderate-sized bilateral scrotal fluid collection or hydroceles right greater than left. Benign thin-walled cysts in the bila teral epididymides are present. Comparison images show symmetric blood flow to both testicles. IMPRESSION: Symmetric blood flow to both testicles. Moderate-sized right greater than left scrotal fl uid collections or hydroceles noted.
== END | disposition home or self-care (01) ==
LOC: RADUSWWP 10:07
PROVIDERS: ATTEND Family Medicine
DX: N43.3 Hydrocele, unspecified (principal)
CPT/HCPCS: 76870; 93975

== ENCOUNTER 2021-09-25 12:42 | Emergency (ER) | payer OTHER ==
[2021-09-25 13:28] VITALS: BP 132/72; PULSE 71; RESP 18; TEMP 98.8
--- NOTE | 2021-09-25 14:52 | ED ---
General Adult HPI - General Chief complaint: Recheck/Abnormal Lab/Rx Stated complaint: Post-op eye swelling Time Seen by Provider: 09/25/21 14:38 Source: patient Mode of arrival: ambulatory Limitations: no limitations - History of Present Illness Initial comments: Dictation was produced using [employer] dictation software. please excuse any grammatical, word or spelling errors. Chief Complaint: 65-year-old male who presents with periorbital swelling 4 days postop brain surgery History of Present Illness: Patient 65-year-old male he had operation performed by Dr. Iniguez 4 days ago. He is going to have a brainstem stimulator placed. Patient explains that He had some sort of procedure where they went in through his brain tissue to feed a wire. He was doing fine postoperatively when yesterday he started have some swelling around his bilateral eyes. Patient denies any vision loss. No pain. Patient otherwise has no complaints. Yesterday he spoke with Cyndi who works with Dr. Iniguez and patient was instructed to take Benadryl. Symptoms and I get worse. Patient said the pitcher to Cyndi who then told patient to come to the emergency department to be evaluated. The ROS documented in this emergency department record has been reviewed and confirmed by me. Those systems with pertinent positive or negative responses pringle ve been documented in the HPI. All other systems are other negative and/or noncontributory. PHYSICAL EXAM: General Impression: Alert and oriented x3, not in acute distress HEENT: Normocephalic atraumatic, extra-ocular movements intact, pupils equal and reactive to light bilaterally, mucous membranes moist, mild periorbital edema most noticeable to the upper and lower eyelids. Swelling is nonindurated. It is nonblanching Extraocular movements intact, oral exam is unremarkable. No swelling to the tongue or lips. Cardiovascular: Heart regular rate and rhythm Chest: Able to complete full sentences, no retractions, no tachypnea Abdomen: abdomen soft, non-tender, non-distended, no organomegaly Musculoskeletal: Pulses present and equal in all extremities, no peripheral edema Motor: no focal deficits noted Neurological: CN II-XII grossly intact, no focal motor or sensory deficits noted Skin: Intact with no visualized rashes Psych: Normal affect and mood ED course: 65-year-old male presents emergency department for periorbital edema status post brain surgery. It isn't clear exactly what procedure patient had. But it is a procedure that it's part of a series of procedures to treat patient's tremors. Vital signs upon arrival are within acceptable limits. Patient's well-appearing at the bedside. I did speak with Cyndi who is a RN that works with Dr. Iniguez states that the swelling is likely from the pin sites from patient mentation use during the surgery. He is phone numbers to [phone]. Patient reports that she will call Dr. Iniguez and have him call our emergency department on the patient's behalf. Patient was observed in emergency department for approximately 2 hours and 37 minutes. We were waiting for primary neurosurgeon to call back however he has not in a timely fashion. This is discussed with patient. He is agreeable for discharge. He does have follow-up number for Cyndi who is in direct contact with neurosurgeon. Patient is agreeable for discharge. Patient swelling is likely from the surgical procedure. Return precautions discussed. - Related Data Home Medications Medication Instructions Recorded Confirmed [place]-3 Fatty Acids/Fish Oil [Fish 1 cap PO DAILY 05/29/18 06/18/18 Oil 1,000 mg Softgel] Simvastatin [Zocor] 10 mg PO DAILY 05/29/18 06/18/18 Terazosin HCl 10 mg PO DAILY 05/29/18 06/18/18 Vit C/E/Zn/Coppr/Lutein/Zeaxan 1 cap PO DAILY 05/29/18 06/18/18 [Preservision Areds 2 Softgel] amLODIPine [Norvasc] 5 mg PO DAILY 05/29/18 06/18/18 lisinopriL [Zestril] 10 mg PO DAILY 05/29/18 06/18/18 Albuterol Inhaler (Mhu) [Ventolin 2 puff INHALATION RT-Q4H PRN 06/13/18 06/18/18 Hfa Inhaler (Mhu)] traZODone HCL [TraZODone HCl] 50 mg PO HS 06/13/18 06/18/18 Aspirin [[place]appa Aspirin EC] 81 mg PO BID 06/18/18 06/18/18 Ibuprofen [Motrin Ib] 600 mg PO BID 06/18/18 06/18/18 Previous Rx's Medication Instructions Recorded Ciprofloxacin HCl [Cipro] 500 mg PO Q12HR #20 tablet 03/12/20 Allergies Allergy/AdvReac Type Severity Reaction Status Date / Time No Known Allergies Allergy Verified 09/25/21 13:25 Review of Systems ROS Statement: Those systems with pertinent positive or pertinent negative responses have been documented in the HPI. ROS Other: All systems not noted in ROS Statement are negative. Past Medical History Past Medical History: Hyperlipidemia, Hypertension, Prostate Disorder Additional Past Medical History / Comment(s): PARKINSON History of Any Multi-Drug Resistant Organisms: None Reported Past Surgical History: Appendectomy, Tonsillectomy Additional Past Surgical History / Comment(s): rt carpal tunnel release, colonoscopy/polypectomy(benign), Past Anesthesia/Blood Transfusion Reactions: No Reported Reaction Additional Past Anesthesia/Blood Transfusion Reaction / Comment(s): clausterphobia Past Psychological History: Depression Smoking Status: Current some day smoker, Light tobacco smoker Past Alcohol Use History: None Reported Past Drug Use History: Marijuana - Past Family History Mother Family Medical History: Cancer Additional Family Medical History / Comment(s): bone cancer Father Family Medical History: Coronary Artery Disease (CAD), Dementia Additional Family Medical History / Comment(s): cardiac stents General Exam Limitations: no limitations Course Vital Signs 09/25/21 13:25 Temperature 98.8 F Pulse Rate 71 Respiratory 18 Rate Blood Pressure 132/72 Disposition Clinical Impression: Periorbital swelling Disposition: HOME SELF-CARE Condition: Good Additional Instructions: Follow-up with your neurosurgeon. Is patient prescribed a controlled substance at d/c from ED?: No Referrals: Darius Guo DO [Primary Care Provider] - 1-2 days
== END 2021-09-25 15:33 | disposition home or self-care (01) ==
LOC: EC 12:42
DX: H05.223 Edema of bilateral orbit (principal); I10 Essential (primary) hypertension; E78.5 Hyperlipidemia, unspecified; F32.A Depression, unspecified; F17.200 Nicotine dependence, unspecified, uncomplicated; F12.90 Cannabis use, unspecified, uncomplicated; Z79.51 Long term (current) use of inhaled steroids; Z79.82 Long term (current) use of aspirin; Z79.899 Other long term (current) drug therapy
CPT/HCPCS: 99283

== ENCOUNTER 2021-12-31 08:13 | Observation (INO) | payer OTHER ==
[2021-12-31] MEDS ORDERED: methylPREDNISolone SOD SUCCI 125 MG/2 ML VIAL IV STA (08:32)
[2021-12-31] MEDS ORDERED: IPRATROPIUM 0.5 MG/2.5 ML NEBU INHALATION STA (08:32)
[2021-12-31] MEDS ORDERED: ALBUTEROL NEBULIZED 2.5 MG/3 ML INHALATION STA (08:32)
--- NOTE | 2021-12-31 08:40 | ED ---
General Adult HPI - General Chief complaint: Shortness of Breath Stated complaint: RADHA Time Seen by Provider: 12/31/21 08:20 Source: patient, RN notes reviewed, old records reviewed Mode of arrival: ambulatory Limitations: no limitations - History of Present Illness Initial comments: This is a 66-year-old male who presents emergency Department stating he has difficulty breathing. Patient states he has a history of COPD and Parkinson's. Patient states she does continue to smoke but over the last couple of days he's cut down. Patient denies any fever or chills. Patient states she has a cough that is chronic. Patient denies chest pain or palpitations. Patient denies abdominal pain patient denies any nausea or vomiting. Patient denies swelling to the legs or calf tenderness. - Related Data Home Medications Medication Instructions Recorded Confirmed [place]-3 Fatty Acids/Fish Oil [Fish 1 cap PO DAILY 05/29/18 06/18/18 Oil 1,000 mg Softgel] Simvastatin [Zocor] 10 mg PO DAILY 05/29/18 06/18/18 Terazosin HCl 10 mg PO DAILY 05/29/18 06/18/18 Vit C/E/Zn/Coppr/Lutein/Zeaxan 1 cap PO DAILY 05/29/18 06/18/18 [Preservision Areds 2 Softgel] amLODIPine [Norvasc] 5 mg PO DAILY 05/29/18 06/18/18 lisinopriL [Zestril] 10 mg PO DAILY 05/29/18 06/18/18 Albuterol Inhaler [Ventolin Hfa 2 puff INHALATION RT-Q4H PRN 06/13/18 06/18/18 Inhaler] traZODone HCL [TraZODone HCl] 50 mg PO HS 06/13/18 06/18/18 Aspirin [Burnett Aspirin EC] 81 mg PO BID 06/18/18 06/18/18 Ibuprofen [Motrin Ib] 600 mg PO BID 06/18/18 06/18/18 Previous Rx's Medication Instructions Recorded Ciprofloxacin HCl [Cipro] 500 mg PO Q12HR #20 tablet 03/12/20 Allergies Allergy/AdvReac Type Severity Reaction Status Date / Time No Known Allergies Allergy Verified 12/31/21 08:20 Review of Systems ROS Statement: Those systems with pertinent positive or pertinent negative responses have been documented in the HPI. ROS Other: All systems not noted in ROS Statement are negative. Past Medical History Past Medical History: COPD, Hyperlipidemia, Hypertension, Prostate Disorder Additional Past Medical History / Comment(s): PARKINSON History of Any Multi-Drug Resistant Organisms: None Reported Past Surgical History: Appendectomy, Tonsillectomy Additional Past Surgical History / Comment(s): rt carpal tunnel release, colonoscopy/polypectomy(benign), Past Anesthesia/Blood Transfusion Reactions: No Reported Reaction Additional Past Anesthesia/Blood Transfusion Reaction / Comment(s): cla usterphobia Past Psychological History: Depression Smoking Status: Current some day smoker, Light tobacco smoker Past Alcohol Use History: None Reported Past Drug Use History: Marijuana - Past Family History Mother Family Medical History: Cancer Additional Family Medical History / Comment(s): bone cancer Father Family Medical History: Coronary Artery Disease (CAD), Dementia Additional Family Medical History / Comment(s): cardiac stents General Exam - General Exam Comments Initial Comments: GENERAL: Patient is well-developed and well-nourished. Patient is nontoxic and well- hydrated and is in mild distress. ENT: Neck is soft and supple. No significant lymphadenopathy is noted. Oropharynx is clear. Moist mucous membranes. Neck has full range of motion without eliciting any pain. EYES: The sclera were anicteric and conjunctiva were pink and moist. Extraocular movements were intact and pupils were equal round and reactive to light. Eyelids were unremarkable. PULMONARY: Patient has decreased breath sounds and some expiratory wheezing CARDIOVASCULAR: There is a regular rate and rhythm without any murmurs gallops or rubs. ABDOMEN: Soft and nontender with normal bowel sounds. SKIN: Skin is clear with no lesions or rashes and otherwise unremarkable. NEUROLOGIC: Patient is alert and oriented x3. Cranial nerves II through XII are grossly intact. Motor and sensory are also intact. Normal speech, volume and content. Symmetrical smile. MUSCULOSKELETAL: Normal extremities with adequate strength and full range of motion. LYMPHATICS: No significant lymphadenopathy is noted PSYCHIATRIC: Normal psychiatric evaluation. Limitations: no limitations Course Vital Signs 12/31/21 12/31/21 12/31/21 08:18 08:32 09:11 Temperature 98.5 F Pulse Rate 91 85 81 Respiratory 24 18 18 Rate Blood Pressure 161/92 131/97 O2 Sat by Pulse 92 L 93 L Oximetry 06/19/22 06/19/22 09:24 09:35 Temperature Pulse Rate 74 81 Respiratory 18 18 Rate Blood Pressure 157/96 O2 Sat by Pulse 90 L Oximetry Medical Decision Making - Medical Decision Making EKG shows paced rhythm at 93 bpm RI interval is 365 QRSs 118 QT intervals 375 QTC is 425. Patient's EKG shows no ST segment elevation or depression X-ray shows no acute abnormality. Patient received breathing treatments and steroids in the emergency department patient's breathing did improve a little but he was not feeling good enough to go home at this time. Patient's troponin was also elevated. I spoke with [facility] hospitalist agreed to admit the patient admitted the patient wrote admitting orders - Lab Data Result diagrams: 12/31/21 08:44 12/31/21 08:44 Lab Results 12/31/21 12/31/21 12/31/21 Range/Units 08:44 08:44 08:44 WBC 11.5 H (3.8-10.6) k/uL RBC 4.63 (4.30-5.90) m/uL Hgb 15.2 (13.0-17.5) gm/dL Hct 44.9 (39.0-53.0) % MCV 96.9 (80.0-100.0) fL MCH 32.8 (25.0-35.0) pg MCHC 33.8 (31.0-37.0) g/dL RDW 13.9 (11.5-15.5) % Plt Count 184 (150-450) k/uL MPV 8.9 Neutrophils % 83 % Lymphocytes % 9 % Monocytes % 5 % Eosinophils % 2 % Basophils % 0 % Neutrophils # 9.5 H (1.3-7.7) k/uL Lymphocytes # 1.0 (1.0-4.8) k/uL Monocytes # 0.5 (0-1.0) k/uL Eosinophils # 0.2 (0-0.7) k/uL Basophils # 0.0 (0-0.2) k/uL PT 10.3 (9.0-12.0) sec INR 0.9 (<1.2) APTT 21.9 L (22.0-30.0) sec Sodium 141 (137-145) mmol/L Potassium 4.3 (3.5-5.1) mmol/L Chloride 107 (98-107) mmol/L Carbon Dioxide 28 (22-30) mmol/L Anion Gap 6 mmol/L BUN 18 (9-20) mg/dL Creatinine 0.94 (0.66-1.25) mg/dL Est GFR (CKD-EPI)AfAm >90 (>60 ml/min/1.73 sqM) Est GFR (CKD-EPI)NonAf 86 (>60 ml/min/1.73 sqM) Glucose 109 H (74-99) mg/dL Plasma Lactic Acid Zachariah (0.7-2.0) mmol/L Calcium 8.4 (8.4-10.2) mg/dL Magnesium 1.9 (1.6-2.3) mg/dL Total Bilirubin 1.5 H (0.2-1.3) mg/dL AST 20 (17-59) U/L ALT 6 (4-49) U/L Alkaline Phosphatase 79 (38-126) U/L Troponin I (0.000-0.034) ng/mL Total Protein 6.5 (6.3-8.2) g/dL Albumin 4.1 (3.5-5.0) g/dL 12/31/21 12/31/21 Range/Units 08:44 08:44 WBC (3.8-10.6) k/uL RBC (4.30-5.90) m/uL Hgb (13.0-17.5) gm/dL Hct (39.0-53.0) % MCV (80.0-100.0) fL MCH (25.0-35.0) pg MCHC (31.0-37.0) g/dL RDW (11.5-15.5) % Plt Count (150-450) k/uL MPV Neutrophils % % Lymphocytes % % Monocytes % % Eosinophils % % Basophils % % Neutrophils # (1.3-7.7) k/uL Lymphocytes # (1.0-4.8) k/uL Monocytes # (0-1.0) k/uL Eosinophils # (0-0.7) k/uL Basophils # (0-0.2) k/uL PT (9.0-12.0) sec INR (<1.2) APTT (22.0-30.0) sec Sodium (137-145) mmol/L Potassium (3.5-5.1) mmol/L Chloride (98-107) mmol/L Carbon Dioxide (22-30) mmol/L Anion Gap mmol/L BUN (9-20) mg/dL Creatinine (0.66-1.25) mg/dL Est GFR (CKD-EPI)AfAm (>60 ml/min/1.73 sqM) Est GFR (CKD-EPI)NonAf (>60 ml/min/1.73 sqM) Glucose (74-99) mg/dL Plasma Lactic Acid Zachariah 1.5 (0.7-2.0) mmol/L Calcium (8.4-10.2) mg/dL Magnesium (1.6-2.3) mg/dL Total Bilirubin (0.2-1.3) mg/dL AST (17-59) U/L ALT (4-49) U/L Alkaline Phosphatase (38-126) U/L Troponin I 0.071 H* (0.000-0.034) ng/mL Total Protein (6.3-8.2) g/dL Albumin (3.5-5.0) g/dL Disposition Clinical Impression: COPD exacerbation, Elevated troponin Disposition: ADMITTED IP TO THIS HOSP Referrals: Darius Guo DO [Primary Care Provider] - 1-2 days Time of Disposition: 09:45
[2021-12-31 08:59] LABS: Basophils % (A) 0 %; Eosinophils # (A) 0.2 k/uL (0-0.7); Eosinophils % (A) 2 %; HCT 44.9 % (39.0-53.0); HGB 15.2 gm/dL (13.0-17.5); Lymphocytes % (A) 9 %; MCH 32.8 pg (25.0-35.0); MCHC 33.8 g/dL (31.0-37.0); MCV 96.9 fL (80.0-100.0); Mean Platelet Volume 8.9; Monocytes # (A) 0.5 k/uL (0-1.0); Monocytes % (A) 5 %; Neutrophils # (A) 9.5 k/uL (1.3-7.7); Neutrophils % (A) 83 %; Platelet Count 184 k/uL (150-450); RBC 4.63 m/uL (4.30-5.90); RDW 13.9 % (11.5-15.5); WBC 11.5 k/uL (3.8-10.6)
[2021-12-31 09:09] LABS: ALT 6 U/L (4-49); AST 20 U/L (17-59); African American GFR (CKD) >90 (>60 ml/min/1.73 sqM); Albumin 4.1 g/dL (3.5-5.0); Alkaline Phosphatase 79 U/L (38-126); Anion Gap 6 mmol/L; Blood Urea Nitrogen 18 mg/dL (9-20); Calcium 8.4 mg/dL (8.4-10.2); Carbon Dioxide 28 mmol/L (22-30); Chloride 107 mmol/L (98-107); Glucose 109 mg/dL (74-99); Magnesium 1.9 mg/dL (1.6-2.3); Non-African American GFR(CKD) 86 (>60 ml/min/1.73 sqM); Potassium 4.3 mmol/L (3.5-5.1); Sodium 141 mmol/L (137-145); Total Bilirubin 1.5 mg/dL (0.2-1.3); Total Protein 6.5 g/dL (6.3-8.2)
[2021-12-31 09:12] LABS: INR 0.9 (<1.2); Prothrombin Time 10.3 sec (9.0-12.0)
--- NOTE | 2021-12-31 09:13 | XR ---
EXAMINATION TYPE: XR chest 2V DATE OF EXAM: 12/31/2021 8:52 AM COMPARISON: Multiple radiographs, with the most recent on 09/04/2021 TECHNIQUE: XR chest 2V Frontal and lateral views of the chest. CLINICAL INDICATION:Male, 66 years old with history of difficulty breathing; FINDINGS: Lungs/Pleura: Prominent interstitial lung markings are seen scattered throughout the lungs. No eviden ce of focal consolidation, pneumothorax or pleural effusion. Pulmonary vascularity: Unremarkable. Heart/mediastinum: Cardiomediastinal silhouette is enlarged and stable. Musculoskeletal: No acute osseous pathology. IMPRESSION: No acute cardiopulmonary disease/process.
[2021-12-31 09:16] LABS: Partial Thromboplastin Time 21.9 sec (22.0-30.0)
--- NOTE | 2021-12-31 11:01 | P.HPIM ---
History of Present Illness This Is a pleasant 67 years old male with past medical history of COPD, chest pain, thoracic aortic aneurysm, hypertension, hyperlipidemia, Parkinson disease and benign prostatic hypertrophy Presents because of dyspnea for 2 days duration associated with clear sterile phlegm but no chest pain. No diarrhea or dysuria or headache or weakness or numbness. He states is been smoking about 3 cigarettes per week. 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 He has mild leukocytosis of 11.5, rest of INR, BMP and liver enzymes are unremarkable. Troponin is elevated 0.07 EKG showing atrial pacemaker Chest x-ray: No acute process. Patient is started on some dyspnea on Review of Systems CONSTITUTIONAL: No fever, no malaise, no fatigue. HEENT: No recent visual problems or hearing problems. Denied any sore throat. CARDIOVASCULAR: No orthopnea, PND, no palpitations, no syncope. PULMONARY: NO Chest wall tenderness, no hemoptysis. GASTROINTESTINAL: No diarrhea, no nausea, no vomiting, no abdominal pain. Normoactive bowel sounds. NEUROLOGICAL: No headaches, no weakness, no numbness. HEMATOLOGICAL: Denies any bleeding or petechiae. GENITOURINARY: Denies any burning micturition, frequency, or urgency. MUSCULOSKELETAL/RHEUMATOLOGICAL: Denies any joint pain, swelling, or any muscle pain. ENDOCRINE: Denies any polyuria or polydipsia. Past Medical History Past Medical History: COPD, Hyperlipidemia, Hypertension, Prostate Disorder Additional Past Medical History / Comment(s): PARKINSON History of Any Multi-Drug Resistant Organisms: None Reported Past Surgical History: Appendectomy, Tonsillectomy Additional Past Surgical History / Comment(s): rt carpal tunnel release, colonoscopy/polypectomy(benign), Past Anesthesia/Blood Transfusion Reactions: No Reported Reaction Additional Past Anesthesia/Blood Transfusion Reaction / Comment(s): clausterphobia Past Psychological History: Depression Smoking Status: Current some day smoker, Light tobacco smoker Past Alcohol Use History: None Reported Past Drug Use History: Marijuana - Past Family History Mother Family Medical History: Cancer Additional Family Medical History / Comment(s): bone cancer Father Family Medical History: Coronary Artery Disease (CAD), Dementia Additional Family Medical History / Comment(s): cardiac stents Medications and Allergies Home Medications Medication Instructions Recorded Confirmed Type [place]-3 Fatty Acids/Fish Oil [Fish 1 cap PO DAILY 05/29/18 06/18/18 History Oil 1,000 mg Softgel] Simvastatin [Zocor] 10 mg PO DAILY 05/29/18 06/18/18 History Terazosin HCl 10 mg PO DAILY 05/29/18 06/18/18 History Vit C/E/Zn/Coppr/Lutein/Zeaxan 1 cap PO DAILY 05/29/18 06/18/18 History [Preservision Areds 2 Softgel] amLODIPine [Norvasc] 5 mg PO DAILY 05/29/18 06/18/18 History lisinopriL [Zestril] 10 mg PO DAILY 05/29/18 06/18/18 History Albuterol Inhaler [Ventolin Hfa 2 puff INHALATION RT-Q4H PRN 06/13/18 06/18/18 History Inhaler] traZODone HCL [TraZODone HCl] 50 mg PO HS 06/13/18 06/18/18 History Aspirin [Sublimity Aspirin EC] 81 mg PO BID 06/18/18 06/18/18 History Ibuprofen [Motrin Ib] 600 mg PO BID 06/18/18 06/18/18 History Ciprofloxacin HCl [Cipro] 500 mg PO Q12HR #20 tablet 03/12/20 Rx Allergies Allergy/AdvReac Type Severity Reaction Status Date / Time No Known Allergies Allergy Verified 12/31/21 08:20 Physical Exam Vitals: Vital Signs Temp Pulse Resp BP Pulse Ox 12/31/21 09:35 81 18 157/96 90 L 12/31/21 09:24 74 18 12/31/21 09:11 81 18 12/31/21 08:32 85 18 131/97 93 L 12/31/21 08:18 98.5 F 91 24 161/92 92 L Intake and Output 12/30/21 12/31/21 12/31/21 22:59 06:59 14:59 Other: Weight 108.862 kg GENERAL: The patient is alert and oriented x3, not in any acute distress. Well developed, well nourished. HEENT: Pupils are round and equally reacting to light. EOMI. No scleral icterus. No conjunctival pallor. Normocephalic, atraumatic. No pharyngeal erythema. No thyromegaly. CARDIOVASCULAR: S1 and S2 present. No murmurs, rubs, or gallops. -PULMONARY: Chest is clear to auscultation, expiratory wheezing. No crackles. ABDOMEN: Soft, nontender, nondistended, normoactive bowel sounds. No palpable organomegaly. MUSCULOSKELETAL: No joint swelling or deformity. EXTREMITIES: No cyanosis, clubbing, or pedal edema. NEUROLOGICAL: Gross neurological examination did not reveal any focal deficits. SKIN: No rashes. no petechiae. Results CBC & Chem 7: 12/31/21 08:44 12/31/21 08:44 Labs: Abnormal Lab Results - Last 24 Hours (Table) 12/31/21 12/31/21 12/31/21 Range/Units 08:44 08:44 08:44 WBC 11.5 H (3.8-10.6) k/uL Neutrophils # 9.5 H (1.3-7.7) k/uL APTT 21.9 L (22.0-30.0) sec Glucose 109 H (74-99) mg/dL Total Bilirubin 1.5 H (0.2-1.3) mg/dL Troponin I (0.000-0.034) ng/mL 12/31/21 Range/Units 08:44 WBC (3.8-10.6) k/uL Neutrophils # (1.3-7.7) k/uL APTT (22.0-30.0) sec Glucose (74-99) mg/dL Total Bilirubin (0.2-1.3) mg/dL Troponin I 0.071 H* (0.000-0.034) ng/mL Assessment and Plan Assessment: Acute COPD exacerbation Elevated troponin Nicotine dependence, he is counseled, he declined nicotine patch Hypertension Hyperlipidemia History of Parkinson disease History of benign prostatic hypertrophy Plan: This is a pleasant 66 years old male who presents with acute COPD exacerbation Continue with bronchodilator and oxygen as needed continue with CREFDINIR Pulmonary team consult cardiology consult Continue with aspirin Labs and medication were reviewed.. Continue same treatment. Continue with symptomatic treatment. Resume home medication. Monitor lytes and vitals. DVT and GI prophylaxis. Further recommendationsas per clinical course of the patient DVT prophylaxis: Subcutaneous heparin GI Prophylaxis: Pepcid Prognosis is guarded
[2021-12-31] MEDS: IPRATROPIUM-ALBUTEROL 3 ML NEB INHALATION PRN ×3 (11:17→20:01)
[2021-12-31] MEDS: methylPREDNISolone SOD SUCCI 125 MG/2 ML VIAL IV SCH ×3 (12:24→23:57)
[2021-12-31] MEDS ORDERED: hydrALAZINE HCL 25 MG TAB PO PRN (16:18)
[2021-12-31 16:39] LABS: Glucose,Whole Blood 198 mg/dL (70-110)
[2021-12-31] MEDS: CARBIDOPA-LEVODOPA 25-100 MG 1 EACH TAB PO SCH ×2 (17:36→21:11)
[2021-12-31] MEDS: INSULIN ASPART (NovoLOG) 100 UNIT/ML VIAL SQ SCH ×2 (17:39→21:13)
[2021-12-31] MEDS ORDERED: ALBUTEROL NEBULIZED 2.5 MG/3 ML INHALATION SCH (20:00)
[2021-12-31 20:17] LABS: Glucose,Whole Blood 203 mg/dL (70-110)
[2021-12-31] MEDS: FAMOTIDINE 20 MG/2 ML VIAL IV SCH (21:11)
[2021-12-31] MEDS: TAMSULOSIN 0.4 MG CAP.ER.24H PO SCH (21:11)
[2021-12-31] MEDS: HEPARIN SODIUM,PORCINE/PF 5,000 UNIT/0.5 ML SYRINGE SQ SCH (21:13)
[2021-12-31] MEDS: DOXAZOSIN 4 MG TAB PO SCH (21:15)
[2021-12-31] MEDS: ALBUTEROL NEBULIZED 2.5 MG/3 ML INHALATION SCH (23:23)
[2021-12-31] MEDS: CEFDINIR 300 MG CAP PO SCH (23:57)
[2021-12-31] MEDS: TEMAZEPAM 15 MG CAP PO PRN (23:57)
[2022-01-01] MEDS: CARBIDOPA-LEVODOPA 25-100 MG 1 EACH TAB PO SCH ×4 (04:35→23:13)
[2022-01-01 06:11] LABS: Glucose,Whole Blood 148 mg/dL (70-110)
[2022-01-01] MEDS: methylPREDNISolone SOD SUCCI 125 MG/2 ML VIAL IV SCH ×4 (06:24→23:12)
[2022-01-01] MEDS: INSULIN ASPART (NovoLOG) 100 UNIT/ML VIAL SQ SCH ×4 (06:25→20:54)
[2022-01-01] MEDS: ALBUTEROL NEBULIZED 2.5 MG/3 ML INHALATION SCH ×2 (07:24→07:31)
[2022-01-01] MEDS: FAMOTIDINE 20 MG/2 ML VIAL IV SCH (09:00)
[2022-01-01] MEDS ORDERED: amLODIPine 5 MG TAB PO SCH (09:00)
[2022-01-01] MEDS: HEPARIN SODIUM,PORCINE/PF 5,000 UNIT/0.5 ML SYRINGE SQ SCH ×2 (09:05→20:07)
--- NOTE | 2022-01-01 10:30 | P.CNPUL ---
History of Present Illness Consult date: 01/01/22 Requesting physician: Brenda Sánchez Reason for consult: dyspnea, cough, COPD, hypoxemia Chief complaint: Shortness of breath. History of present illness: Pulmonary consult dated 01/01/2022. 66-year-old smoker, who presents to the emergency department, on December 31, complaining of increasing shortness of breath. The patient has had difficulty breathing for about 2 or 3 days prior to admission. The patient also complained of chest tightness, coughing, wheezing, and occasional phlegm production. There is no fever or chills. There is no chest pain or chest discomfort. The patient was seen in the emergency room, and admitted with a diagnosis of COPD exacerbation. As mentioned above, the patient does continue to smoke cigarettes. His past medical history includes hypertension, hyperlipidemia, COPD, Parkinson's disease, and BPH. White count 11.5, with a normal hemoglobin, hematocrit, and platelet count. Sodium 141, potassium 4.3, chlorides 107, CO2 28, within normal BUN and creatinine. Bilirubin 1.5. Troponin was 0.071, 0.065, 0.090, and 0.063. Chest x-ray was normal. Review of Systems REVIEW OF SYSTEMS: CONSTITUTIONAL: [Negative.] NEUROLOGIC: [ Negative.] HEENT: [ Negative.] CARDIAC: [Negative.] PULMONARY: Shortness of breath, cough, wheezing, and chest tightness. GI: [Negative.] : [Negative.] RHEUMATOLOGIC: [ Negative.] IMMUNOLOGIC: [ Negative.] ENDOCRINE: [Negative. ] DERMATOLOGIC: [Negative.] Past Medical History Past Medical History: COPD, Hyperlipidemia, Hypertension, Prostate Disorder Additional Past Medical History / Comment(s): PARKINSON History of Any Multi-Drug Resistant Organisms: None Reported Past Surgical History: Appendectomy, Tonsillectomy Additional Past Surgical History / Comment(s): rt carpal tunnel release, colonoscopy/polypectomy(benign), Brain Stimulator implanted in brain with wires down to chest to a device in chest for Parkinsons- done at [facility] Past Anesthesia/Blood Transfusion Reactions: No Reported Reaction Additional Past Anesthesia/Blood Transfusion Reaction / Comment(s): clausterphobia Past Psychological History: Depression Additional Psychological History / Comment(s): lives alone in [facility]-no pets. 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 Smoking Status: Current some day smoker, Light tobacco smoker Past Alcohol Use History: None Reported Additional Past Alcohol Use History / Comment(s): started smoking 1977 smoked 1.5-2 ppd, quit 2007 Past Drug Use History: Marijuana Additional Drug Use History / Comment(s): quit drug use 2002 - Past Family History Mother Family Medical History: Cancer Additional Family Medical History / Comment(s): bone cancer Father Family Medical History: Coronary Artery Disease (CAD), Dementia Additional Family Medical History / Comment(s): cardiac stents Medications and Allergies Home Medications Medication Instructions Recorded Confirmed Type Terazosin HCl 10 mg PO HS 05/29/18 12/31/21 History amLODIPine [Norvasc] 5 mg PO DAILY 05/29/18 12/31/21 History Albuterol Inhaler [Ventolin Hfa 2 puff INHALATION RT-Q4H 06/13/18 12/31/21 History Inhaler] Carbidopa/Levodopa [Sinemet 25-100 1.5 tab PO QID 12/31/21 12/31/21 History mg Tablet] Losartan Potassium 100 mg PO W/LUNCH 12/31/21 12/31/21 History Omeprazole 20 mg PO DAILY 12/31/21 12/31/21 History Tamsulosin [Flomax] 0.4 mg PO HS 12/31/21 12/31/21 History Allergies Allergy/AdvReac Type Severity Reaction Status Date / Time No Known Allergies Allergy Verified 12/31/21 11:09 Physical Exam Osteopathic Statement: *. No significant issues noted on an osteopathic structural exam other than those noted in the History and Physical/Consult. Vitals: Vital Signs Temp Pulse Pulse Pulse Resp BP BP 01/01/22 08:00 97.2 F L 82 20 168/84 01/01/22 07:44 82 01/01/22 07:31 82 01/01/22 04:36 97.9 F 85 16 12/31/21 23:55 98.2 F 85 20 12/31/21 20:13 92 12/31/21 20:01 94 12/31/21 19:37 98.0 F 98 18 12/31/21 16:08 84 12/31/21 16:00 98.3 F 99 20 166/87 12/31/21 15:56 80 12/31/21 14:00 94 18 12/31/21 13:36 97.9 F 95 18 165/94 12/31/21 11:27 88 18 12/31/21 11:17 84 18 BP Pulse Ox 01/01/22 08:00 91 L 01/01/22 07:44 01/01/22 07:31 95 01/01/22 04:36 154/80 91 L 12/31/21 23:55 160/79 93 L 12/31/21 20:13 12/31/21 20:01 12/31/21 19:37 120/86 91 L 12/31/21 16:08 12/31/21 16:00 166/84 91 L 12/31/21 15:56 12/31/21 14:00 12/31/21 13:36 95 12/31/21 11:27 12/31/21 11:17 Intake and Output 12/31/21 01/01/22 01/01/22 22:59 06:59 14:59 Other: # Voids 2 2 No acute distress, oriented 3. Currently on room air, with saturations of 91- 95%. HEENT examination is grossly unremarkable. Neck supple. Full range of motion. No adenopathy thyromegaly or neck vein distention. Cardiovascular examination reveals regular rhythm rate. S1-S2 normal. No S3 or S4. No discernible murmur noted. Heart rate 82 bpm. Lungs reveal diffuse bilateral expiratory rhonchi and expiratory wheezes. No crackles. Breath sounds equal bilaterally. Saturations are adequate on room air. There is prolongation on forced maneuver. Abdomen soft bowel sounds are heard. No masses or tenderness. Extremities are intact. No cyanosis clubbing or edema. Skin is without rash or lesion. Neurologic examination is brief but nonfocal. Results - Laboratory Findings CBC and BMP: 12/31/21 08:44 12/31/21 08:44 PT/INR, D-dimer PT 10.3 sec (9.0-12.0) 12/31/21 08:44 INR 0.9 (<1.2) 12/31/21 08:44 Abnormal lab findings: Abnormal Labs 12/31/21 12/31/21 12/31/21 08:44 08:44 08:44 WBC 11.5 H Neutrophils # 9.5 H APTT 21.9 L Glucose 109 H POC Glucose (mg/dL) Total Bilirubin 1.5 H Troponin I 12/31/21 12/31/21 12/31/21 08:44 11:09 16:38 WBC Neutrophils # APTT Glucose POC Glucose (mg/dL) 198 H Total Bilirubin Troponin I 0.071 H* 0.065 H* 12/31/21 12/31/21 12/31/21 19:08 20:15 21:46 WBC Neutrophils # APTT Glucose POC Glucose (mg/dL) 203 H Total Bilirubin Troponin I 0.090 H* 0.063 H* 01/01/22 06:10 WBC Neutrophils # APTT Glucose POC Glucose (mg/dL) 148 H Total Bilirubin Troponin I - Diagnostic Findings Chest x-ray: image reviewed Assessment and Plan Assessment: Acute exacerbation of COPD, in a patient with active tobacco use. History of Parkinson's disease, status post nerve stimulator. History of ongoing tobacco use with nicotine addiction. History of BPH. History of gastroesophageal reflux disease. History of hypertension. History of hyperlipidemia. Plan: Plan dated 01/01/2022. The patient is currently on site Medrol 60 mg every 6 hours, and updrafts with both albuterol sulfate and ipratropium bromide. The patient is getting Omnicef, 300 mg twice a day. I will add some Symbicort 160/4.5, 2 puffs twice a day. Additional recommendations and suggestions are forthcoming. Prognosis is guarded. Post discharge, he should follow-up in the office, for complete pulmon jelena function testing. Time with Patient: Greater than 30
--- NOTE | 2022-01-01 10:34 | P.PN ---
Subjective This Is a pleasant 67 years old male with past medical history of COPD, chest pain, thoracic aortic aneurysm, hypertension, hyperlipidemia, Parkinson disease and benign prostatic hypertrophy Presents because of dyspnea for 2 days duration associated with clear sterile phlegm but no chest pain. No diarrhea or dysuria or headache or weakness or numbness. He states is been smoking about 3 cigarettes per week. 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 He has mild leukocytosis of 11.5, rest of INR, BMP and liver enzymes are unremarkable. Troponin is elevated 0.07 EKG showing atrial pacemaker Chest x-ray: No acute process. Patient is started on Solu-Medrol 01/01/2022 Patient was admitted with acute COPD exacerbation, I still have dyspnea and coughing, he is on room air. His lung examination showing scattered wheezing. He remains on IV Solu-Medrol and Omnicef His troponin is elevated, echocardiogram is ordered. Cardiology team were consulted Objective - Vital Signs Vital signs: Vital Signs Temp 97.2 F L 01/01/22 08:00 Pulse 82 01/01/22 08:00 Resp 20 01/01/22 08:00 BP 168/84 01/01/22 08:00 Pulse Ox 91 L 01/01/22 08:00 FiO2 Intake & Output 12/31/21 01/01/22 01/01/22 18:59 06:59 18:59 Weight 108.862 kg Other: # Voids 2 2 - Exam -GENERAL: The patient is alert and oriented x3, not in any acute distress. Obese HEENT: Pupils are round and equally reacting to light. EOMI. No scleral icterus. No conjunctival pallor. Normocephalic, atraumatic. No pharyngeal erythema. No thyromegaly. CARDIOVASCULAR: S1 and S2 present. No murmurs, rubs, or gallops. -PULMONARY: Chest is clear to auscultation, no crackles. Scattered wheezing bilaterally ABDOMEN: Soft, nontender, nondistended, normoactive bowel sounds. No palpable organomegaly. MUSCULOSKELETAL: No joint swelling or deformity. EXTREMITIES: No cyanosis, clubbing, or pedal edema. NEUROLOGICAL: Gross neurological examination did not reveal any focal deficits. SKIN: No rashes. no petechiae. - Labs CBC & Chem 7: 12/31/21 08:44 12/31/21 08:44 Labs: Abnormal Lab Results - Last 24 Hours (Table) 12/31/21 12/31/21 12/31/21 Range/Units 11:09 16:38 19:08 POC Glucose (mg/dL) 198 H (70-110) mg/dL Troponin I 0.065 H* 0.090 H* (0.000-0.034) ng/mL 12/31/21 12/31/21 01/01/22 Range/Units 20:15 21:46 06:10 POC Glucose (mg/dL) 203 H 148 H (70-110) mg/dL Troponin I 0.063 H* (0.000-0.034) ng/mL Assessment and Plan Assessment: Acute COPD exacerbation Elevated troponin Nicotine dependence, he is counseled, he declined nicotine patch Hypertension Hyperlipidemia History of Parkinson disease History of benign prostatic hypertrophy Plan: This is a pleasant 66 years old male who presents with acute COPD exacerbation Continue with bronchodilator and oxygen as needed continue with CREFDINIR Pulmonary team consult cardiology consult Continue with aspirin Labs and medication were reviewed.. Continue same treatment. Continue with symptomatic treatment. Resume home medication. Monitor lytes and vitals. DVT and GI prophylaxis. Further recommendationsas per clinical course of the patient DVT prophylaxis: Subcutaneous heparin GI Prophylaxis: Pepcid Prognosis is guarded
[2022-01-01] MEDS: CEFDINIR 300 MG CAP PO SCH ×2 (11:10→20:06)
[2022-01-01] MEDS: LOSARTAN 50 MG TAB PO SCH (11:11)
[2022-01-01] MEDS ORDERED: amLODIPine 5 MG TAB PO STA (11:14)
[2022-01-01 11:30] LABS: Glucose,Whole Blood 194 mg/dL (70-110)
--- NOTE | 2022-01-01 11:51 | P.CRDCN ---
History of Present Illness Consult date: 01/01/22 History of present illness: HISTORY OF PRESENT ILLNESS: This is a 66-year-old male with a past medical history significant for COPD, nicotine dependence, Parkinson's disease, hypertension, hyperlipidemia, thoracic aortic aneurysm, mild nonobstructive coronary artery disease, mild nonischemic cardiomyopathy, moderate to severe aortic insufficiency and mitral regurgitation. Patient follows in the office with Dr. Vee. We have been asked to see the patient in consultation for abnormal troponins. Patient examined at the bedside. Patient presented to the hospital with a chief complaint of shortness of breath that began about 2-3 days ago but increased in severity yesterday morning, prompting him to come to the ER. He denied any chest pain or pressure. Denies dizziness or lightheadedness. Blood pressure is elevated this morning with a reading of 154/80 * EKG reveals sinus mechanism with T-wave inversions in V6, unchanged from prior * Chest xray negative for acute process * Laboratory data: WBC 11.5. Hemoglobin 15.2. Platelet count 184. Sodium 141. Potassium 4.3. BUN 18. Creatinine 0.94. Troponin 0.071. 0.065. 0.090. 0.063. * Current home cardiac medications include losartan 100 mg at lunch and amlodipine 5 mg daily. * Most recent echocardiogram obtained in April 2021 revealed ejection fraction 45-50%, moderate to severe aortic regurgitation, [id number] mitral regurgitation, mild tricuspid regurgitation * Cardiac catheterization history: June 2018 revealing mild disease in the LAD but otherwise no significant disease. REVIEW OF SYSTEMS: At the time of my exam: CONSTITUTIONAL: Denies fever or chills. HEENT: Denies blurred vision, vision changes, or eye pain. Denies hemoptysis CARDIOVASCULAR: Denies chest pain. Denies orthopnea. Denies PND. Denies palpitations RESPIRATORY: Denies shortness of breath. GASTROINTESTINAL: Denies abdominal pain. Denies nausea or vomiting. HEMATOLOGIC: Denies bleeding disorders. GENITOURINARY: Denies any blood in urine. SKIN: Denies pruitis. Denies rash. PHYSICAL EXAM: VITAL SIGNS: Reviewed. GENERAL: Well-developed in no acute distress. HEENT: Head is normocephalic. Pupils are equal, round. Sclerae anicteric. Mucous membranes of the mouth are moist. Neck supple. No JVD or thyromegaly LUNGS: Respirations even and unlabored. Lungs with expiratory wheezing noted. HEART: Regular rate and rhythm. S1 and S2 heard. Diastolic murmur noted. ABDOMEN: Soft. Nondistended. Nontender. EXTREMITIES: Normal range of motion. No clubbing or cyanosis. Peripheral pulses intact. No lower extremity edema NEUROLOGIC: Awake and alert. Oriented x 3. ASSESSMENT: Acute COPD exacerbation Abnormal troponins, likely secondary to type II CA secondary to oxygen supply and demand mismatch, not suggestive of acute coronary syndrome Hypertension Hyperlipidemia Thoracic aortic aneurysm Mild nonobstructive coronary artery disease Mild nonischemic cardiomyopathy Valvular heart disease PLAN: An acute coronary event has been ruled out Obtain 2D echo to assess cardiac structure and function Increase Norvasc to 10mg daily for optimal blood pressure control Continue additional home cardiac medications Patient is currently stable from a cardiac standpoint Further recommendations pending patient course Nurse practitioner note has been reviewed by physician. Signing provider agrees with the documented findings, assessment, and plan of care. Past Medical History Past Medical History: COPD, Hyperlipidemia, Hypertension, Prostate Disorder Additional Past Medical History / Comment(s): PARKINSON History of Any Multi-Drug Resistant Organisms: None Reported Past Surgical History: Appendectomy, Tonsillectomy Additional Past Surgical History / Comment(s): rt carpal tunnel release, colonoscopy/polypectomy(benign), Brain Stimulator implanted in brain with wires down to chest to a device in chest for Parkinsons- done at [facility] Past Anesthesia/Blood Transfusion Reactions: No Reported Reaction Additional Past Anesthesia/Blood Transfusion Reaction / Comment(s): clausterphobia Past Psychological History: Depression Additional Psychological History / Comment(s): lives alone in [facility]-no pets. 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 Smoking Status: Current some day smoker, Light tobacco smoker Past Alcohol Use History: None Reported Additional Past Alcohol Use History / Comment(s): started smoking 1977 smoked 1.5-2 ppd, quit 2007 Past Drug Use History: Marijuana Additional Drug Use History / Comment(s): quit drug use 2002 - Past Family History Mother Family Medical History: Cancer Additional Family Medical History / Comment(s): bone cancer Father Family Medical History: Coronary Artery Disease (CAD), Dementia Additional Family Medical History / Comment(s): cardiac stents Medications and Allergies Home Medications Medication Instructions Recorded Confirmed Type Terazosin HCl 10 mg PO HS 05/29/18 12/31/21 History amLODIPine [Norvasc] 5 mg PO DAILY 05/29/18 12/31/21 History Albuterol Inhaler [Ventolin Hfa 2 puff INHALATION RT-Q4H 06/13/18 12/31/21 History Inhaler] Carbidopa/Levodopa [Sinemet 25-100 1.5 tab PO QID 12/31/21 12/31/21 History mg Tablet] Losartan Potassium 100 mg PO W/LUNCH 12/31/21 12/31/21 History Omeprazole 20 mg PO DAILY 12/31/21 12/31/21 History Tamsulosin [Flomax] 0.4 mg PO HS 12/31/21 12/31/21 History Allergies Allergy/AdvReac Type Severity Reaction Status Date / Time No Known Allergies Allergy Verified 12/31/21 11:09 Physical Exam Vitals: Vital Signs Temp Pulse Pulse Pulse Resp BP BP 01/01/22 08:00 97.2 F L 82 20 168/84 01/01/22 07:44 82 01/01/22 07:31 82 01/01/22 04:36 97.9 F 85 16 12/31/21 23:55 98.2 F 85 20 12/31/21 20:13 92 12/31/21 20:01 94 12/31/21 19:37 98.0 F 98 18 12/31/21 16:08 84 12/31/21 16:00 98.3 F 99 20 166/87 12/31/21 15:56 80 12/31/21 14:00 94 18 12/31/21 13:36 97.9 F 95 18 165/94 12/31/21 11:27 88 18 12/31/21 11:17 84 18 BP Pulse Ox 01/01/22 08:00 91 L 01/01/22 07:44 01/01/22 07:31 95 01/01/22 04:36 154/80 91 L 12/31/21 23:55 160/79 93 L 12/31/21 20:13 12/31/21 20:01 12/31/21 19:37 120/86 91 L 12/31/21 16:08 12/31/21 16:00 166/84 91 L 12/31/21 15:56 12/31/21 14:00 12/31/21 13:36 95 12/31/21 11:27 12/31/21 11:17 Intake and Output 12/31/21 01/01/22 01/01/22 22:59 06:59 14:59 Other: # Voids 2 2 Results 12/31/21 08:44 12/31/21 08:44 Cardiac Enzymes 12/31/21 12/31/21 12/31/21 Range/Units 11:09 19:08 21:46 Troponin I 0.065 H* 0.090 H* 0.063 H* (0.000-0.034) ng/mL Current Medications Generic Name Dose Route Start Last Admin Trade Name Freq PRN Reason Stop Dose Admin Albuterol/Ipratropium 3 ml 12/31/21 09:54 12/31/21 20:01 Ipratropium-Albuterol 3 Ml Neb INHALATION 3 ml RT-Q4H PRN Administration Shortness Of Breath Or Wheezing Amlodipine Besylate 5 mg 01/01/22 09:00 01/01/22 08:59 Amlodipine 5 Mg Tab PO 5 mg DAILY MICHELLE Administration Budesonide/Formoterol Fumarate 2 puff 01/01/22 20:00 Symbicort 160-4.5 Mcg Inhaler INHALATION RT-BID MICHELLE Carbidopa/Levodopa 1.5 each 01/01/22 05:00 01/01/22 04:35 Carbidopa-Levodopa 25-100 Mg 1 Each Tab PO 1.5 each Q6H MICHELLE Administration Cefdinir 300 mg 12/31/21 21:00 12/31/21 23:57 Cefdinir 300 Mg Cap PO 01/10/22 21:01 Not Given BID [facility] Protocol Doxazosin Mesylate 8 mg 12/31/21 21:00 12/31/21 21:15 Doxazosin 4 Mg Tab PO Not Given HS MICHELLE Famotidine 20 mg 01/01/22 21:00 Famotidine 20 Mg Tab PO BID MICHELLE Heparin Sodium (Porcine) 5,000 unit 12/31/21 21:00 01/01/22 09:05 Heparin Sodium,Porcine/Pf 5,000 Unit/0.5 Ml Syringe SQ 5,000 unit Q12HR MICHELLE Administration Hydralazine HCl 25 mg 12/31/21 16:18 Hydralazine Hcl 25 Mg Tab PO QID PRN Blood Pressure - High Insulin Aspart 0 unit 12/31/21 17:30 01/01/22 06:25 Insulin Aspart (Novolog) 100 Unit/Ml Vial SQ 1 unit ACHS MICHELLE Administration Protocol Losartan Potassium 100 mg 01/01/22 12:30 Losartan 50 Mg Tab PO W/LUNCH MICHELLE Methylprednisolone Sodium Succinate 60 mg 12/31/21 12:00 01/01/22 06:24 Methylprednisolone Sod Succi 125 Mg/2 Ml Vial IV 60 mg Q6HR MICHELLE Administration Tamsulosin HCl 0.4 mg 12/31/21 21:00 12/31/21 21:11 Tamsulosin 0.4 Mg Cap.Er.24h PO 0.4 mg HS MICHELLE Administration Temazepam 15 mg 12/31/21 23:37 12/31/21 23:57 Temazepam 15 Mg Cap PO 15 mg HS PRN Administration Insomnia Intake and Output 12/31/21 01/01/22 01/01/22 22:59 06:59 14:59 Other: # Voids 2 2 12/31/21 08:44 12/31/21 08:44
[2022-01-01] MEDS ORDERED: diphenhydrAMINE 25 MG CAP PO PRN (15:48)
[2022-01-01 16:29] LABS: Glucose,Whole Blood 146 mg/dL (70-110)
--- NOTE | 2022-01-01 17:28 | CA ---
Transthoracic Echo Report Name: Long Antony Age: 66 Gender: M : 1955 Exam Date: 01/01/2022 13:56 Exam Location: [facility] Ht (in): 60 Wt (lb): 240 Ordering Physician: Joan Henry Attending/Referring Phys: [id number], Elaine Cable Lacer Yadi Shin, JAYDEN Procedure CPT: Indications: LV function Cardiac Hx: Technical Quality: Fair Contrast 1: Total Dose (mL): Contrast 2: Definity Total Dose (mL): MEASUREMENTS (Male / Female) Normal Values 2D ECHO LV Diastolic Diameter PLAX 6.1 cm 4.2 - 5.9 / 3.9 - 5.3 cm LV Systolic Diameter PLAX 5.0 cm IVS Diastolic Thickness 1.4 cm 0.6 - 1.0 / 0.6 - 0.9 cm LVPW Diastolic Thickness 1.9 cm 0.6 - 1.0 / 0.6 - 0.9 cm LV Relative Wall Thickness 0.5 LA Volume 138.5 cm??? 18 - 58 / 22 - 52 cm??? M-MODE Aortic Root Diameter MM 4.3 cm LA Systolic Diameter MM 3.6 cm LA Ao Ratio MM 0.8 AV Cusp Separation MM 2.7 cm DOPPLER AV Peak Velocity 192.0 cm/s AV Peak Gradient 14.7 mmHg AV Mean Velocity 131.0 cm/s AV Mean Gradient 7.6 mmHg AV Velocity Time Integral 33.8 cm AI Peak Velocity 431.3 cm/s AI Peak Gradient 74.4 mmHg AI Pressure Half Time 232.7 ms LVOT Peak Velocity 157.4 cm/s LVOT Peak Gradient 9.9 mmHg MV Area PHT 3.3 cm??? Mitral E Point Velocity 71.8 cm/s Mitral A Point Velocity 116.6 cm/s Mitral E to A Ratio 0.6 MV Deceleration Time 229.7 ms MV E' Velocity 3.3 cm/s Mitral E to MV E' Ratio 21.9 FINDINGS Left Ventricle Normal Left ventricular size, moderate wall thickness,left ventricular ejection fraction is estimated at 30-35%. Moderately reduced global left ventricular systolic function. Right Ventricle Normal right ventricular size and function. Right Atrium Normal right atrial size. Left Atrium Severely increased left atrial volume. Moderately increased left atrial area. Mitral Valve Structurally normal mitral valve. Trace to mild mitral regurgitation. Aortic Valve Ascending Aortic Aneurysm measures 4.3cm .[id number] aortic regurgitation. Tricuspid Valve Structurally normal tricuspid valve. Trace to mild tricuspid regurgitation. Pulmonic Valve Structurally normal pulmonic valve. Trace pulmonic regurgitation. Pericardium Normal pericardium. Aorta Normal size aortic root and proximal ascending aorta. CONCLUSIONS Reduced LV systolic function, large segment of apical hypokinesis and left ventricular ejection fraction 30% only the basal segments seem to be edith Left atrial enlargement Mildly enlarged aortic root Previewed by: Dr. Orestes Newman MD (Electronically Signed) Final Date: 01 January 2022 17:26
[2022-01-01] MEDS: IPRATROPIUM-ALBUTEROL 3 ML NEB INHALATION PRN (19:36)
[2022-01-01] MEDS: SYMBICORT 160-4.5 MCG INHALER INHALATION SCH (19:36)
[2022-01-01] MEDS: DOXAZOSIN 4 MG TAB PO SCH (20:06)
[2022-01-01] MEDS: FAMOTIDINE 20 MG TAB PO SCH (20:06)
[2022-01-01] MEDS: TAMSULOSIN 0.4 MG CAP.ER.24H PO SCH (20:07)
[2022-01-01 20:42] LABS: Glucose,Whole Blood 160 mg/dL (70-110)
[2022-01-01] MEDS: TEMAZEPAM 15 MG CAP PO PRN (23:13)
[2022-01-02 05:54] LABS: Glucose,Whole Blood 144 mg/dL (70-110)
[2022-01-02] MEDS: CARBIDOPA-LEVODOPA 25-100 MG 1 EACH TAB PO SCH ×2 (06:08→11:28)
[2022-01-02] MEDS: INSULIN ASPART (NovoLOG) 100 UNIT/ML VIAL SQ SCH ×2 (06:09→13:14)
[2022-01-02] MEDS: methylPREDNISolone SOD SUCCI 125 MG/2 ML VIAL IV SCH ×2 (06:09→11:27)
[2022-01-02] MEDS: IPRATROPIUM-ALBUTEROL 3 ML NEB INHALATION PRN ×2 (08:10→11:35)
[2022-01-02] MEDS: SYMBICORT 160-4.5 MCG INHALER INHALATION SCH (08:10)
[2022-01-02] MEDS ORDERED: amLODIPine 10 MG TAB PO SCH (09:00)
--- NOTE | 2022-01-02 09:14 | P.PN ---
Subjective Progress Note Date: 01/02/22 Principal diagnosis: COPD exacerbation. Pulmonary consult dated 01/01/2022. 66-year-old smoker, who presents to the emergency department, on December 31, complaining of increasing shortness of breath. The patient has had difficulty breathing for about 2 or 3 days prior to admission. The patient also complained of chest tightness, coughing, wheezing, and occasional phlegm production. There is no fever or chills. There is no chest pain or chest discomfort. The patient was seen in the emergency room, and admitted with a diagnosis of COPD exacerbation. As mentioned above, the patient does continue to smoke cigarettes. His past medical history includes hypertension, hyperlipidemia, COPD, Parkinson's disease, and BPH. White count 11.5, with a normal hemoglobin, hematocrit, and platelet count. Sodium 141, potassium 4.3, chlorides 107, CO2 28, within normal BUN and creatinine. Bilirubin 1.5. Troponin was 0.071, 0.065, 0.090, and 0.063. Chest x-ray was normal. Progress note dated 01/02/2022. 66-year-old male who was seen yesterday in consultation. He came into the emergency room on December 31 complaining of increasing shortness of breath. He was admitted with a diagnosis of COPD exacerbation. Currently, he is doing much better. He is on room air. From my perspective, the patient could be considered for possible discharge. He was counseled about the importance of smoking cessation. No new labs today other than her blood glucose of 144. Objective - Vital Signs Vital signs: Vital Signs Temp 98.1 F 01/01/22 20:00 Pulse 90 01/02/22 08:21 Resp 19 01/02/22 04:20 BP 165/85 01/02/22 04:20 Pulse Ox 96 01/02/22 04:20 FiO2 Intake & Output 01/01/22 01/02/22 01/02/22 18:59 06:59 18:59 Intake Total 118 Balance 118 Intake: Oral 118 Other: Voiding Method Toilet # Voids 1 3 - Exam No acute distress, oriented 3. Currently on room air, with saturations of 96%. HEENT examination is grossly unremarkable. Neck supple. Full range of motion. No adenopathy thyromegaly or neck vein distention. Cardiovascular examination reveals regular rhythm rate. S1-S2 normal. No S3 or S4. No discernible murmur noted. Heart rate 90 bpm. Lungs reveal improved bilateral breath sounds. Diffuse mild rhonchi are noted. Minimal wheezes. Breath sounds equal bilaterally. Saturations are excellent. Breath sounds are much improved compared to yesterday's exam. Abdomen soft bowel sounds are heard. No masses or tenderness. Extremities are intact. No cyanosis clubbing or edema. Skin is without rash or lesion. Neurologic examination is brief but nonfocal. - Labs CBC & Chem 7: 12/31/21 08:44 12/31/21 08:44 Labs: Abnormal Lab Results - Last 24 Hours (Table) 01/01/22 01/01/22 01/01/22 Range/Units 11:28 16:28 20:39 POC Glucose (mg/dL) 194 H 146 H 160 H (70-110) mg/dL 01/02/22 Range/Units 05:53 POC Glucose (mg/dL) 144 H (70-110) mg/dL Assessment and Plan Assessment: Acute exacerbation of COPD, in a patient with active tobacco use. History of Parkinson's disease, status post nerve stimulator. History of ongoing tobacco use with nicotine addiction. History of BPH. History of gastroesophageal reflux disease. History of hypertension. History of hyperlipidemia. Plan: Plan dated 01/01/2022. The patient is currently on site Medrol 60 mg every 6 hours, and updrafts with both albuterol sulfate and ipratropium bromide. The patient is getting Omnicef, 300 mg twice a day. I will add some Symbicort 160/4.5, 2 puffs twice a day. Additional recommendations and suggestions are forthcoming. Prognosis is guarded. Post discharge, he should follow-up in the office, for complete pulmonary function testing. Plan dated 01/02/2022. The patient's doing much better. The patient could be considered for discharge. The patient should be discharged on Symbicort 160/4.5, 2 puffs twice a day, prednisone with a burst and taper, beginning with 40 mg, reducing the dose by 10 mg every fifth day, albuterol inhaler, and a couple days more of antibiotics. The patient should follow-up in our office for full PFTs. Additional recommendations and suggestions are forthcoming. He is counseled about the importance of smoking cessation. Prognosis is guarded. Time with Patient: Less than 30
[2022-01-02] MEDS ORDERED: METOPROLOL SUCCINATE (ER) 25 MG TAB.ER.24H PO SCH (10:00)
[2022-01-02] MEDS: HEPARIN SODIUM,PORCINE/PF 5,000 UNIT/0.5 ML SYRINGE SQ SCH (11:28)
[2022-01-02] MEDS: FAMOTIDINE 20 MG TAB PO SCH (11:28)
[2022-01-02] MEDS: LOSARTAN 50 MG TAB PO SCH (11:28)
[2022-01-02] MEDS: CEFDINIR 300 MG CAP PO SCH (11:28)
[2022-01-02 11:41] LABS: Glucose,Whole Blood 201 mg/dL (70-110)
[2022-01-02 12:03] VITALS: BP 169/88; PULSE 91; RESP 18; TEMP 97.8
--- NOTE | 2022-01-02 13:10 | P.PN ---
Subjective Progress Note Date: 01/02/22 HISTORY OF PRESENT ILLNESS: This is a 66-year-old male with a past medical history significant for COPD, nicotine dependence, Parkinson's disease, hypertension, hyperlipidemia, thoracic aortic aneurysm, mild nonobstructive coronary artery disease, mild nonischemic cardiomyopathy, moderate to severe aortic insufficiency and mitral regurgitation. Patient follows in the office with Dr. Vee. We have been asked to see the patient in consultation for abnormal troponins. Patient examined at the bedside. Patient presented to the hospital with a chief complaint of shortness of breath that began about 2-3 days ago but increased in severity yesterday morning, prompting him to come to the ER. He denied any chest pain or pressure. Denies dizziness or lightheadedness. Blood pressure is elevated this morning with a reading of 154/80 * EKG reveals sinus mechanism with T-wave inversions in V6, unchanged from prior * Chest xray negative for acute process * Laboratory data: WBC 11.5. Hemoglobin 15.2. Platelet count 184. Sodium 141. Potassium 4.3. BUN 18. Creatinine 0.94. Troponin 0.071. 0.065. 0.090. 0.063. * Current home cardiac medications include losartan 100 mg at lunch and amlodipine 5 mg daily. * Most recent echocardiogram obtained in April 2021 revealed ejection fraction 45-50%, moderate to severe aortic regurgitation, [id number] mitral regurgitation, mild tricuspid regurgitation * Cardiac catheterization history: June 2018 revealing mild disease in the LAD but otherwise no significant disease. 01/02/2022 Patient examined this morning at the bedside. Patient denies chest pain or pressure. He denies shortness of breath. Echocardiogram completed revealing ejection fraction 30-35%. Patient's vital signs are stable. Patient's blood pressure slightly on the higher side with a reading of 169/88. PHYSICAL EXAM: VITAL SIGNS: Reviewed. GENERAL: Well-developed in no acute distress. HEENT: Head is normocephalic. Pupils are equal, round. Sclerae anicteric. Mucous membranes of the mouth are moist. Neck supple. No JVD or thyromegaly LUNGS: Respirations even and unlabored. Lungs with expiratory wheezing noted. HEART: Regular rate and rhythm. S1 and S2 heard. Diastolic murmur noted. ABDOMEN: Soft. Nondistended. Nontender. EXTREMITIES: Normal range of motion. No clubbing or cyanosis. Peripheral pulses intact. No lower extremity edema NEUROLOGIC: Awake and alert. Oriented x 3. ASSESSMENT: Acute COPD exacerbation Abnormal troponins, likely secondary to type II NC secondary to oxygen supply and demand mismatch, not suggestive of acute coronary syndrome Hypertension Hyperlipidemia Thoracic aortic aneurysm Mild nonobstructive coronary artery disease Mild nonischemic cardiomyopathy Valvular heart disease PLAN: Continue current cardiac medications Add metoprolol succinate 25 mg daily Patient be discharged home today from a cardiac standpoint Further recommendations pending patient course Nurse practitioner note has been reviewed by physician. Signing provider agrees with the documented findings, assessment, and plan of care. Objective - Vital Signs Vital signs: Vital Signs Temp 97.8 F 01/02/22 12:00 Pulse 91 01/02/22 12:00 Resp 18 01/02/22 12:00 BP 169/88 01/02/22 12:00 Pulse Ox 96 01/02/22 12:00 FiO2 Intake & Output 01/01/22 01/02/22 01/02/22 18:59 06:59 18:59 Intake Total 358 Balance 358 Intake: Oral 358 Other: Voiding Method Toilet Toilet # Voids 1 3 2 - Labs CBC & Chem 7: 12/31/21 08:44 12/31/21 08:44 Labs: Abnormal Lab Results - Last 24 Hours (Table) 01/01/22 01/01/22 01/02/22 Range/Units 16:28 20:39 05:53 POC Glucose (mg/dL) 146 H 160 H 144 H (70-110) mg/dL 01/02/22 Range/Units 11:39 POC Glucose (mg/dL) 201 H (70-110) mg/dL
--- NOTE | 2022-01-02 22:40 | P.DS ---
Providers Date of admission: 12/31/21 09:55 Attending physician: Brenda Sánchez Consults: 12/31/21 11:00 Consult Physician Urgent Consulting Provider: Racheal Driver Consult Reason/Comments: copd Do you want consulting provider notified?: Yes Consult Physician Urgent Consulting Provider: Poncho Baker Consult Reason/Comments: elevated troponin Do you want consulting provider notified?: Yes Primary care physician: Darius Guo Hospital Course: Diagnoses: Acute COPD exacerbation, improved and by pipe bending machine operator for discharge Elevated troponin, secondary for hypoxia, cleared by food technician for discharge Nicotine dependence, he is counseled, he declined nicotine patch Cardiomyopathy with ejection fraction 30-35% Hypertension Hyperlipidemia History of Parkinson disease History of benign prostatic hypertrophy Hospital course: This Is a pleasant 67 years old male with past medical history of COPD, chest pain, thoracic aortic aneurysm, hypertension, hyperlipidemia, Parkinson disease and benign prostatic hypertrophy Presents because of dyspnea for 2 days duration associated with clear sterile phlegm but no chest pain. Patient found to have acute COPD exacerbation and also invaded troponin secondary to hypoxia. Patient has been treated with Cefdinir, IV Solu-Medrol and breathing treatment and has been evaluated by pipe bending machine operator and food technician. Patient showed interval improvement and on the day of discharge he feels significantly improved posterior baseline. He denies any chest pain, no headache or dizziness. No abdominal complaint or pain. No change in urine or bowel habits. No fever. Gait normal, patient was eager to go home today to follow up with his physician to get neuro stimulator for his spine problem. Patient was cleared for discharge by food technician and pipe bending machine operator Problems and management plan were discussed with the patient and he verbalized understanding and acceptance Patient was found stable and can be discharged home however he needs follow-up as an outpatient. Patient was instructed to follow up with PCP Dr. Guo within one week and patient agrees Also patient was instructed to follow up with pipe bending machine operator Dr. Dolan in 2 weeks [address] food technician [address] Camp in 1 to 2 weeks and he verbalized understanding and acceptance Physical exam Gen: patient is a AAOx3, no distress CVS: S1-S2, RRR, no murmur Lungs: B/L CTA, no wheezing Abdomen: soft, no distention, no tenderness, positive bowel sounds Extremity: no leg edema or induration Time spent more than 35 minutes Plan - Discharge Summary Discharge Rx Participant: No New Discharge Prescriptions: New Cefdinir [Omnicef] 300 mg PO BID 2 Days #4 cap predniSONE 10 mg PO DIRECTED #50 tab Metoprolol Succinate (ER) [Toprol XL] 25 mg PO DAILY #30 tab Budesonide-Formot 160-4.5 Mcg [Symbicort 160-4.5 Mcg Inhaler] 2 puff INHALATION RT-BID #1 each Continue Terazosin HCl 10 mg PO HS Omeprazole 20 mg PO DAILY Losartan Potassium 100 mg PO W/LUNCH Carbidopa/Levodopa [Sinemet 25-100 mg Tablet] 1.5 tab PO QID Albuterol Inhaler [Ventolin Hfa Inhaler] 2 puff INHALATION RT-Q4H #1 each Tamsulosin [Flomax] 0.4 mg PO HS Changed amLODIPine [Norvasc] 5 mg PO BID #60 tab Discharge Medication List Terazosin HCl 10 mg PO HS 05/29/18 [History] Carbidopa/Levodopa [Sinemet 25-100 mg Tablet] 1.5 tab PO QID 12/31/21 [History] Losartan Potassium 100 mg PO W/LUNCH 12/31/21 [History] Omeprazole 20 mg PO DAILY 12/31/21 [History] Tamsulosin [Flomax] 0.4 mg PO HS 12/31/21 [History] Albuterol Inhaler [Ventolin Hfa Inhaler] 2 puff INHALATION RT-Q4H #1 each 01/02/22 [Rx] Budesonide-Formot 160-4.5 Mcg [Symbicort 160-4.5 Mcg Inhaler] 2 puff INHALATION RT-BID #1 each 01/02/22 [Rx] Cefdinir [Omnicef] 300 mg PO BID 2 Days #4 cap 01/02/22 [Rx] Metoprolol Succinate (ER) [Toprol XL] 25 mg PO DAILY #30 tab 01/02/22 [Rx] amLODIPine [Norvasc] 5 mg PO BID #60 tab 01/02/22 [Rx] predniSONE 10 mg PO DIRECTED #50 tab 01/02/22 [Rx] Follow up Appointment(s)/Referral(s): Devan Camp MD [STAFF PHYSICIAN] - 1 Week Cali Dolan DO [Doctor of Osteopathic Medicine] - 01/31/22 8:45 am (we recommend to perform pulmonary (lung ) function test) Darius Guo DO [Primary Care Provider] - 1-2 days Patient Instructions/Handouts: COPD (Chronic Obstructive Pulmonary Disease) (DC) Activity/Diet/Wound Care/Special Instructions: heart healthy diet, low sugar diet activity is recommended to be restricted till you see your doctor Discharge Disposition: HOME SELF-CARE
== END 2022-01-02 13:25 | disposition home or self-care (01) ==
LOC: EC 08:13 → 3SCARD 09:55 → INTOOBSV 09:55 → 3SCARD 13:07 → UNDODISIN 01-02 13:25
PROVIDERS: ADMIT Hospitalist; ATTEND Hospitalist
DX: J44.1 Chronic obstructive pulmonary disease with (acute) exacerbation (principal); F17.210 Nicotine dependence, cigarettes, uncomplicated; I42.8 Other cardiomyopathies; I10 Essential (primary) hypertension; E78.5 Hyperlipidemia, unspecified; G20 Parkinson's disease; N40.0 Benign prostatic hyperplasia without lower urinary tract symptoms; R09.02 Hypoxemia; I08.3 Combined rheumatic disorders of mitral, aortic and tricuspid valves; I71.2 Thoracic aortic aneurysm, without rupture; D72.829 Elevated white blood cell count, unspecified; E66.9 Obesity, unspecified; Z68.34 Body mass index [BMI] 34.0-34.9, adult; K21.9 Gastro-esophageal reflux disease without esophagitis; I25.10 Atherosclerotic heart disease of native coronary artery without angina pectoris; F32.A Depression, unspecified; I08.0 Rheumatic disorders of both mitral and aortic valves; Z20.822 Contact with and (suspected) exposure to COVID-19; Z71.6 Tobacco abuse counseling; Z79.899 Other long term (current) drug therapy; Z79.82 Long term (current) use of aspirin; Z79.1 Long term (current) use of non-steroidal anti-inflammatories (NSAID); Z82.49 Family history of ischemic heart disease and other diseases of the circulatory system; Z81.8 Family history of other mental and behavioral disorders; Z80.8 Family history of malignant neoplasm of other organs or systems
CPT/HCPCS: 96376 ×4; 96372 ×3; 96375; 96374; 99285; 36415; 94640 ×6; 94760; 93005; 93306; 80053; 83605; 83735; 84484; 85025; 85610; 85730; 87502; 87635; 71046; G0378 ×3; J2930 ×3; J1644 ×3

== ENCOUNTER 2022-01-05 12:08 | Emergency (ER) | payer OTHER ==
[2022-01-05 12:54] VITALS: BP 132/83; PULSE 69; RESP 18; TEMP 98.7
--- NOTE | 2022-01-05 13:15 | XR ---
Right shoulder HISTORY: Pain and limited motion 3 views of the right shoulder, no comparisons There is marginal spurring, joint space loss at the glenohumeral joint. Arthropathy is also present a t the acromioclavicular joint. Bone mineralization and alignment are maintained. IMPRESSION: Osteoarthritis.
--- NOTE | 2022-01-05 13:17 | ED ---
General Adult HPI - General Chief complaint: Extremity Injury, Upper Stated complaint: shoulder injury Time Seen by Provider: 01/05/22 12:53 Source: patient, RN notes reviewed, old records reviewed Mode of arrival: ambulatory - History of Present Illness Initial comments: 66-year-old male presenting for right shoulder pain patient states he was lifting himself off out of bed and felt a pop in his right shoulder. He's had pain since that time. He has no numbness or tingling to the hand or forearm. No injury, no fall. - Related Data Home Medications Medication Instructions Recorded Confirmed Terazosin HCl 10 mg PO HS 05/29/18 12/31/21 Carbidopa/Levodopa [Sinemet 25-100 1.5 tab PO QID 12/31/21 12/31/21 mg Tablet] Losartan Potassium 100 mg PO W/LUNCH 12/31/21 12/31/21 Omeprazole 20 mg PO DAILY 12/31/21 12/31/21 Tamsulosin [Flomax] 0.4 mg PO HS 12/31/21 12/31/21 Previous Rx's Medication Instructions Recorded Albuterol Inhaler [Ventolin Hfa 2 puff INHALATION RT-Q4H #1 each 01/02/22 Inhaler] Budesonide-Formot 160-4.5 Mcg 2 puff INHALATION RT-BID #1 each 01/02/22 [Symbicort 160-4.5 Mcg Inhaler] Cefdinir [Omnicef] 300 mg PO BID 2 Days #4 cap 01/02/22 Metoprolol Succinate (ER) [Toprol 25 mg PO DAILY #30 tab 01/02/22 XL] amLODIPine [Norvasc] 5 mg PO BID #60 tab 01/02/22 predniSONE 10 mg PO DIRECTED #50 tab 01/02/22 Allergies Allergy/AdvReac Type Severity Reaction Status Date / Time No Known Allergies Allergy Verified 01/05/22 12:54 Review of Systems ROS Statement: Those systems with pertinent positive or pertinent negative responses have been documented in the HPI. ROS Other: All systems not noted in ROS Statement are negative. Past Medical History Past Medical History: COPD, Hyperlipidemia, Hypertension, Prostate Disorder Additional Past Medical History / Comment(s): PARKINSON History of Any Multi-Drug Resistant Organisms: None Reported Past Surgical History: Appendectomy, Tonsillectomy Additional Past Surgical History / Comment(s): rt carpal tunnel release, colonoscopy/polypectomy(benign), Brain Stimulator implanted in brain with wires down to chest to a device in chest for Parkinsons- done at [place] Past Anesthesia/Blood Transfusion Reactions: No Reported Reaction Additional Past Anesthesia/Blood Transfusion Reaction / Comment(s): clausterphobia Past Psychological History: Depression Smoking Status: Current some day smoker, Light tobacco smoker Past Alcohol Use History: None Reported Past Drug Use History: Marijuana - Past Family History Mother Family Medical History: Cancer Additional Family Medical History / Comment(s): bone cancer Father Family Medical History: Coronary Artery Disease (CAD), Dementia Additional Family Medical History / Comment(s): cardiac stents General Exam General appearance: alert, in no apparent distress Head exam: Present: atraumatic, normocephalic Eye exam: Present: normal appearance, PERRL ENT exam: Present: normal exam Neck exam: Present: normal inspection. Absent: tenderness, meningismus Respiratory exam: Present: decreased breath sounds. Absent: respiratory distress Cardiovascular Exam: Present: regular rate, normal rhythm GI/Abdominal exam: Present: soft, distended Extremities exam: Present: tenderness (Right shoulder, decreased range of motion, patient is unable to fully abduct. There is soft tissue swelling over the inferior margin of the deltoid. Distal pulses are intact, normal job coach/job developer strength, normal sensation.). Absent: full ROM Neurological exam: Present: alert, oriented X3, CN II-XII intact. Absent: motor sensory deficit Course Vital Signs 01/05/22 12:48 Temperature 98.7 F Pulse Rate 69 Respiratory 18 Rate Blood Pressure 132/83 O2 Sat by Pulse 97 Oximetry Medical Decision Making - Medical Decision Making 66-year-old male with right shoulder pain. Suspect either subluxation versus rotator cuff injury. Patient is placed in a sling. He should follow with orthopedics. X-ray was performed emergency department which was negative for fracture dislocation. Neurovascularly intact. Disposition Clinical Impression: Shoulder sprain Disposition: HOME SELF-CARE Condition: Good Instructions (If sedation given, give patient instructions): Rotator Cuff Injury (ED), Shoulder Sprain (ED) Is patient prescribed a controlled substance at d/c from ED?: No Referrals: Nonstaff,Physician [Primary Care Provider] - 1-2 days Berhane Polk MD [Medical Doctor] - 1-2 days Time of Disposition: 13:17
== END 2022-01-05 14:01 | disposition home or self-care (01) ==
LOC: EC 12:08
DX: S43.401A Unspecified sprain of right shoulder joint, initial encounter (principal); J44.9 Chronic obstructive pulmonary disease, unspecified; E78.5 Hyperlipidemia, unspecified; I10 Essential (primary) hypertension; W06.XXXA Fall from bed, initial encounter

== ENCOUNTER 2022-01-14 18:00 | Emergency (ER) | payer OTHER ==
[2022-01-14 18:16] VITALS: BP 151/84; PULSE 86; RESP 16; TEMP 98.8
[2022-01-14] MEDS ORDERED: SODIUM CHLORIDE 0.9% 1,000 ML IV STA (18:24)
[2022-01-14] MEDS ORDERED: KETOROLAC 15 MG/ML 1 ML VIAL IVP STA (18:26)
[2022-01-14] MEDS ORDERED: HYDROmorphone 0.5 MG/0.5 ML SYRINGE IVP STA (18:26)
--- NOTE | 2022-01-14 18:42 | ED ---
Male Urogenital HPI - General Chief complaint: Urogenital Stated complaint: flank/testicle pain Time Seen by Provider: 01/14/22 18:18 Source: patient, family, RN notes reviewed Mode of arrival: ambulatory Limitations: no limitations - History of Present Illness Initial comments: This is a 66-year-old male who presents to the emergency department with left flank pain and difficulty with urination. Patient states that since yesterday, he has had pain in the left flank and left lower abdomen. Also states that he feels like he has to urinate all the time, but is only able to go very small amounts. This has also caused him to have pressure and bloating in his abdomen. He has never had symptoms like this in the past and denies any history of kidney stones. He has been drinking a significant amount of water, however his symptoms have not improved and he feels like they are progressing. He was taking Flomax for BPH, however he ran out of his medication several days ago and has not been able to reach his primary care provider for a refill. He does not have a urologist. Denies any fevers, chills, sore throat, cough, dyspnea, chest pain, palpitations, nausea, vomiting, diarrhea, or headaches. MD Complaint: other (Left flank and LLQ pain) Onset/Timin -: days(s) Location: left flank, abdomen - Related Data Home Medications Medication Instructions Recorded Confirmed Terazosin HCl 10 mg PO HS 05/29/18 12/31/21 Carbidopa/Levodopa [Sinemet 25-100 1.5 tab PO QID 12/31/21 12/31/21 mg Tablet] Losartan Potassium 100 mg PO W/LUNCH 12/31/21 12/31/21 Omeprazole 20 mg PO DAILY 12/31/21 12/31/21 Tamsulosin [Flomax] 0.4 mg PO HS 12/31/21 12/31/21 Previous Rx's Medication Instructions Recorded Albuterol Inhaler [Ventolin Hfa 2 puff INHALATION RT-Q4H #1 each 01/02/22 Inhaler] Budesonide-Formot 160-4.5 Mcg 2 puff INHALATION RT-BID #1 each 01/02/22 [Symbicort 160-4.5 Mcg Inhaler] Cefdinir [Omnicef] 300 mg PO BID 2 Days #4 cap 01/02/22 Metoprolol Succinate (ER) [Toprol 25 mg PO DAILY #30 tab 01/02/22 XL] amLODIPine [Norvasc] 5 mg PO BID #60 tab 01/02/22 predniSONE 10 mg PO DIRECTED #50 tab 01/02/22 Tamsulosin [Flomax] 0.4 mg PO HS #30 cap 01/14/22 Allergies Allergy/AdvReac Type Severity Reaction Status Date / Time No Known Allergies Allergy Verified 01/14/22 18:16 Review of Systems ROS Statement: Those systems with pertinent positive or pertinent negative responses have been documented in the HPI. ROS Other: All systems not noted in ROS Statement are negative. Past Medical History Past Medical History: COPD, Hyperlipidemia, Hypertension, Prostate Disorder Additional Past Medical History / Comment(s): PARKINSONs History of Any Multi-Drug Resistant Organisms: None Reported Past Surgical History: Appendectomy, Tonsillectomy Additional Past Surgical History / Comment(s): rt carpal tunnel release, colonoscopy/polypectomy(benign), Brain Stimulator implanted in brain with wires down to chest to a device in chest for Parkinsons- done at [place] Past Anesthesia/Blood Transfusion Reactions: No Reported Reaction Additional Past Anesthesia/Blood Transfusion Reaction / Comment(s): clausterphobia Past Psychological History: Depression Smoking Status: Current some day smoker, Light tobacco smoker Past Alcohol Use History: None Reported Past Drug Use History: Marijuana - Past Family History Mother Family Medical History: Cancer Additional Family Medical History / Comment(s): bone cancer Father Family Medical History: Coronary Artery Disease (CAD), Dementia Additional Family Medical History / Comment(s): cardiac stents General Exam Limitations: no limitations General appearance: alert, in distress Head exam: Present: atraumatic, normocephalic, normal inspection Respiratory exam: Present: normal lung sounds bilaterally. Absent: respiratory distress, wheezes, rales, rhonchi, stridor Cardiovascular Exam: Present: regular rate, normal rhythm, normal heart sounds. Absent: systolic murmur, diastolic murmur, rubs, gallop, clicks GI/Abdominal exam: Present: soft, tenderness (LLQ), normal bowel sounds. Absent: distended, guarding, rebound, rigid Back exam: Present: CVA tenderness (L). Absent: CVA tenderness (R) Neurological exam: Present: alert, oriented X3, CN II-XII intact Psychiatric exam: Present: normal affect, normal mood Skin exam: Present: warm, dry, intact, normal color. Absent: rash Course Vital Signs 01/14/22 18:13 Temperature 98.8 F Pulse Rate 86 Respiratory 16 Rate Blood Pressure 151/84 O2 Sat by Pulse 95 Oximetry Medical Decision Making - Medical Decision Making This is a 66-year-old male who presents to the emergency department for urinary retention. Bladder scan revealed 750 mL of urine. A Ward catheter was placed and just under a liter of urine was drained. That along with the pain medication substantially improved the patient's symptoms. Computed tomography scan of the abdomen and pelvis revealed an increase in size of the left and righ t renal collecting systems. The urinary bladder was also enlarged, and this presentation was most consistent with a bladder outlet obstruction. Given the patient's discontinuation of Flomax for his prostate, this is very likely the case. No kidney stones were identified. Given the bladder outlet obstruction, patient will be sent home with the urinary catheter in place. He was also given follow-up with urology and instructed to contact them next week for an appointment. Patient was given Flomax in the emergency department and prescription was sent to his pharmacy. Advised he discussed this with urology before resuming the medication. Return precautions reviewed in depth, the patient is instructed to return to the emergency department with any new, worsening, or concerning symptoms. Patient verbalized understanding. This case was discussed in detail with the attending ED physician. Presentation, findings, and treatment plan discussed in detail as well. - Lab Data Result diagrams: 01/14/22 18:41 01/14/22 18:41 Lab Results 01/14/22 01/14/22 01/14/22 Range/Units 18:26 18:41 18:41 WBC 16.3 H (3.8-10.6) k/uL RBC 4.85 (4.30-5.90) m/uL Hgb 15.6 (13.0-17.5) gm/dL Hct 47.4 (39.0-53.0) % MCV 97.8 (80.0-100.0) fL MCH 32.2 (25.0-35.0) pg MCHC 32.9 (31.0-37.0) g/dL RDW 14.1 (11.5-15.5) % Plt Count 150 (150-450) k/uL MPV 8.9 Neutrophils % 84 % Lymphocytes % 7 % Monocytes % 6 % Eosinophils % 1 % Basophils % 0 % Neutrophils # 13.7 H (1.3-7.7) k/uL Lymphocytes # 1.2 (1.0-4.8) k/uL Monocytes # 0.9 (0-1.0) k/uL Eosinophils # 0.2 (0-0.7) k/uL Basophils # 0.0 (0-0.2) k/uL Sodium 137 (137-145) mmol/L Potassium 4.4 (3.5-5.1) mmol/L Chloride 105 (98-107) mmol/L Carbon Dioxide 27 (22-30) mmol/L Anion Gap 5 mmol/L BUN 34 H (9-20) mg/dL Creatinine 1.59 H (0.66-1.25) mg/dL Est GFR (CKD-EPI)AfAm 52 (>60 ml/min/1.73 sqM) Est GFR (CKD-EPI)NonAf 45 (>60 ml/min/1.73 sqM) Glucose 107 H (74-99) mg/dL Calcium 8.7 (8.4-10.2) mg/dL Total Bilirubin 1.3 (0.2-1.3) mg/dL AST 30 (17-59) U/L ALT <6 (4-49) U/L Alkaline Phosphatase 78 (38-126) U/L Total Protein 6.2 L (6.3-8.2) g/dL Albumin 4.0 (3.5-5.0) g/dL Amylase 56 (30-110) U/L Lipase 125 (23-300) U/L Urine Color Light Yellow Urine Appearance Clear (Clear) Urine pH 5.5 (5.0-8.0) Ur Specific Buckley 1.004 (1.001-1.035) Urine Protein Negative (Negative) Urine Glucose (UA) Negative (Negative) Urine Ketones Negative (Negative) Urine Blood Negative (Negative) Urine Nitrite Negative (Negative) Urine Bilirubin Negative (Negative) Urine Urobilinogen <2.0 (<2.0) mg/dL Ur Leukocyte Esterase Negative (Negative) - Radiology Data Radiology results: report reviewed, image reviewed Disposition Clinical Impression: Urinary retention Disposition: HOME SELF-CARE Instructions (If sedation given, give patient instructions): Urinary Retention in Men (ED), Enlarged Prostate (BPH) (ED) Additional Instructions: Return to the emergency department with any new, worsening, or concerning symptoms. Make sure that you keep the Ward catheter in place. Contact urology for a follow-up appointment next week. Prescriptions: Tamsulosin [Flomax] 0.4 mg PO HS #30 cap Is patient prescribed a controlled substance at d/c from ED?: No Referrals: None,Stated [Primary Care Provider] - 1-2 days Quinton Andrews MD [STAFF PHYSICIAN] - 1-2 days
[2022-01-14 18:48] LABS: Appearance,Urine Clear (Clear); Bilirubin,Urine Negative (Negative); Blood,Urine Negative (Negative); Color,Urine Light Yellow; Glucose,Urine (UA) Negative (Negative); Ketones,Urine Negative (Negative); Leukocyte Esterase,Urine Negative (Negative); Nitrite,Urine Negative (Negative); PH, Urine 5.5 (5.0-8.0); Protein,Urine Negative (Negative); Specific Gravity,Urine 1.004 (1.001-1.035); Urobilinogen,Urine <2.0 mg/dL (<2.0)
[2022-01-14 18:58] LABS: Basophils % (A) 0 %; Eosinophils # (A) 0.2 k/uL (0-0.7); Eosinophils % (A) 1 %; HCT 47.4 % (39.0-53.0); HGB 15.6 gm/dL (13.0-17.5); Lymphocytes # (A) 1.2 k/uL (1.0-4.8); Lymphocytes % (A) 7 %; MCH 32.2 pg (25.0-35.0); MCHC 32.9 g/dL (31.0-37.0); MCV 97.8 fL (80.0-100.0); Mean Platelet Volume 8.9; Monocytes # (A) 0.9 k/uL (0-1.0); Monocytes % (A) 6 %; Neutrophils # (A) 13.7 k/uL (1.3-7.7); Neutrophils % (A) 84 %; Platelet Count 150 k/uL (150-450); RBC 4.85 m/uL (4.30-5.90); RDW 14.1 % (11.5-15.5); WBC 16.3 k/uL (3.8-10.6)
[2022-01-14 19:07] LABS: ALT <6 U/L (4-49); AST 30 U/L (17-59); African American GFR (CKD) 52 (>60 ml/min/1.73 sqM); Alkaline Phosphatase 78 U/L (38-126); Amylase 56 U/L (30-110); Anion Gap 5 mmol/L; Blood Urea Nitrogen 34 mg/dL (9-20); Calcium 8.7 mg/dL (8.4-10.2); Carbon Dioxide 27 mmol/L (22-30); Chloride 105 mmol/L (98-107); Glucose 107 mg/dL (74-99); Lipase 125 U/L (23-300); Non-African American GFR(CKD) 45 (>60 ml/min/1.73 sqM); Potassium 4.4 mmol/L (3.5-5.1); Sodium 137 mmol/L (137-145); Total Bilirubin 1.3 mg/dL (0.2-1.3); Total Protein 6.2 g/dL (6.3-8.2)
--- NOTE | 2022-01-14 19:47 | CT ---
EXAMINATION TYPE: CT abdomen pelvis w con DATE OF EXAM: 01/14/2022 COMPARISON: 03/12/2020 HISTORY: c/o left flank, groin, and testicular pain CT DLP: 1987.8 mGycm Automated exposure control for dose reduction was used. CONTRAST: Performed with IV Contrast, patient injected with 100 mL of Isovue 300. Images obtained from the diaphragm to the floor the pelvis with IV contrast. The lung bases are clear of infiltrate. There is no pericardial effusion. No pleural effusion. Liver spleen gallbladder pancreas appear intact. The bile ducts are not dilated. There is oval-shaped 4.2 cm left adrenal mass with relatively low density. Kidneys have normal size a nd contour. There is some fullness of the left and right renal pelvis. Right ureter is not dilated. N o evidence of ureteral calculus. There is 2 mm calculus upper pole right kidney. Bladder distends smo othly. No inguinal hernia. No free fluid in the pelvis. No pelvic mass. Delayed images show very heber le contrast in the renal collecting systems. There is no mesenteric edema. No ascites or free air. No sign of bowel obstruction. The lumbar vertebrae have normal alignment. There is degenerative disc space narrowing from L2 to S1 with vacuum disc and spur formation. No compression fracture. The bony pelvis is intact. Hip joints a re intact. There is 2.5 cm fat-containing umbilical hernia. Appendix not seen. No sign of thickened a ppendix. Terminal ileum appears normal. Urinary bladder is large and measures 15 cm. IMPRESSION: There is some fullness of the left and right renal upper collecting systems but no evidence of ureter al calculus. 2 mm calculus upper pole right kidney. Delayed images show little contrast in the collecting systems and some degree of renal failure is pos sible. The left and right renal collecting systems are increased in size compared to old exam and con sistent with previous renal obstruction. Nonopaque ureteral calculi not excluded. It would be very un usual to have simultaneous left and right obstruction. Urinary bladder is large and the fullness of t he renal collecting systems more likely related to bladder outlet obstruction. Left adrenal mass likely benign and not significantly changed in size compared to old exam.
[2022-01-14] MEDS ORDERED: TAMSULOSIN 0.4 MG CAP.ER.24H PO STA (20:45)
== END 2022-01-14 21:22 | disposition home or self-care (01) ==
LOC: EC 18:00
DX: R33.9 Retention of urine, unspecified (principal); R10.32 Left lower quadrant pain; F17.200 Nicotine dependence, unspecified, uncomplicated; J44.9 Chronic obstructive pulmonary disease, unspecified; I10 Essential (primary) hypertension; Z79.899 Other long term (current) drug therapy
CPT/HCPCS: 51798; 36415; 80053; 82150; 83690; 85025; 81003; 74177; 99284; 96374; 96375; 96361; 51702; J1885; J1170; Q9967

== ENCOUNTER → 2022-02-05 | Outpatient (CLI) | payer OTHER ==
--- NOTE | 2022-02-05 15:24 | CT ---
EXAMINATION TYPE: CT angio chest DATE OF EXAM: 02/05/2022 COMPARISON: 02/02/2021 HISTORY: 66-year-old male Thoracic aortic aneurysm TECHNIQUE: Contiguous axial scanning of the chest performed without and with IV Contrast, patient inj ected with 100 mL of Isovue 370. Coronal/sagittal MIP reconstructions performed. 3-D reconstructions generated on a dedicated workstation. CT DLP: 1090.7 mGycm Automated exposure control for dose reduction was used. FINDINGS: Heart is mildly enlarged with trace pericardial fluid. Mild reflux of contrast into the IVC. No evidence for acute intracranial hematoma. Aneurysmal aortic root up to 4.4 cm measured at 4.6 cm, previously. Aneurysmal ascending aorta measuring 4.8 cm, unchanged. Conventional branching anatomy. Aneurysmal upper descending thoracic aorta at 3.6 cm versus 3.5 cm, previously, not significantly claudia nged. Ectatic lower descending thoracic aorta 2.7 cm, unchanged. Mild generalized anasarca change. There is some mediastinal lymph nodes measuring up to 1.1 cm right hilar paratracheal, 1.1 cm subcarinal, small nodes in the jannette. Left anterior chest wall generator device leads extending superiorly. Borderline enlarged caliber to the right and left pulmonary arteries are 2.7 and 2.6 cm, respectively , suggesting underlying hypertension. There are trace bilateral pleural effusions and diffuse septal lines. Minimal groundglass changes in the lower lungs. No leia consolidation. Low-attenuation of the liver suggesting fatty infiltration. Stable low-density mass measuring 4.2 cm left adrenal gland suggesting adrenal adenoma. Bones: [facility] within the mid to lower thoracic spine with moderate to advanced degenerative disc diseas e midthoracic spine. IMPRESSION: 1. ANEURYSMAL THORACIC AORTA (4.4 CM ROOT, ASCENDING 4.8 CM, AND DESCENDING 3.6 CM). THIS IS NOT SIGN IFICANTLY CHANGED. 2. CARDIOMEGALY, MILD GENERALIZED ANASARCA, PULMONARY ARTERIAL HYPERTENSION, TRACE PLEURAL EFFUSIONS, DIFFUSE SEPTAL LINES, AND MILD BIBASILAR GROUNDGLASS. CORRELATE FOR CHF AND EARLY INTERSTITIAL PULMO NARY EDEMA. 3. A FEW MILDLY ENLARGED MEDIASTINAL/HILAR LYMPH NODES ARE LIKELY REACTIVE. 4. HEPATIC STEATOSIS AND STABLE 4.2 CM LEFT ADRENAL GLAND MASS, PROBABLY LARGE ADRENAL ADENOMA.
== END | disposition home or self-care (01) ==
LOC: RADCTMAIN 12:12
PROVIDERS: ATTEND Thoracic Surgery (Cardiothoracic Vascular Surgery)
DX: I71.2 Thoracic aortic aneurysm, without rupture (principal); J90 Pleural effusion, not elsewhere classified; K76.0 Fatty (change of) liver, not elsewhere classified; I51.7 Cardiomegaly
CPT/HCPCS: 71275; Q9967

== ENCOUNTER 2022-02-10 07:54 | Inpatient (IN) | payer OTHER ==
[2022-02-10] MEDS ORDERED: IPRATROPIUM-ALBUTEROL 3 ML NEB INHALATION STA (08:16)
[2022-02-10] MEDS ORDERED: DEXAMETHASONE SOD PHOSPHATE 10 MG/ML 1 ML VIAL IV STA (08:16)
--- NOTE | 2022-02-10 08:18 | ED ---
General Adult HPI - General Chief complaint: Shortness of Breath Stated complaint: RADHA Time Seen by Provider: 02/10/22 08:03 Source: patient, family Mode of arrival: ambulatory Limitations: no limitations - History of Present Illness Initial comments: Dictation was produced using [employer] dictation software. please excuse any grammatical, word or spelling errors. Chief Complaint: 66-year-old male past medical history of COPD, dyslipidemia prostate disease presents to the ER for shortness of breath History of Present Illness: 66-year-old male multiple comorbidities. Patient states that he had quit cigarettes 3 days ago. He presents today for several weeks of shortness of breath. Patient has been using inhalers with no relief. He reports that his symptoms worsen upon waking this morning. Patient states that her shortness of breath is apparent without any changes with position differences. Patient has any chest pain. States that he has a stable cough. Cough is nonproductive. Denies any constitutional symptoms. The ROS documented in this emergency department record has been reviewed and confirmed by me. Those systems with pertinent positive or negative responses have been documented in the HPI. All other systems are other negative and/or noncontributory. PHYSICAL EXAM: General Impression: Alert and oriented x3, not in acute distress HEENT: Normocephalic atraumatic, extra-ocular movements intact, pupils equal and reactive to light bilaterally, mucous membranes moist. Cardiovascular: Heart regular rate and rhythm Chest: Able to complete full sentences, no retractions, no tachypnea, diffuse lung wheezing Abdomen: abdomen soft, non-tender, non-distended, no organomegaly Musculoskeletal: Pulses present and equal in all extremities, no peripheral edema Motor: no focal deficits noted Neurological: CN II-XII grossly intact, no focal motor or sensory deficits noted Skin: Intact with no visualized rashes Psych: Normal affect and mood ED course: 66-year-old male presents emergency department for clinical presentation consistent with COPD exacerbation versus heart failure exacerbation. Signs upon arrival shows heart rate of 11, 91% on room air, blood pressure 190/79. Laboratory evaluation obtained. CBC unremarkable. Metabolic panel is within acceptable limits. Troponin is elevated at 0.086. Patient has history of elevated troponins. Patient not have any ACS symptoms however he does present with shortness of breath. Prematurity peptide is 9730. An echocardiogram performed in December of this year that showed 30% ejection fraction. Clinical presentation also suspicious for heart failure exacerbation. Patient given topical nitroglycerin. Reevaluated at bedside at 9:20 AM after breathing treatment steroids with stable medical condition. He had a recent CT angiogram of the chest 5 days ago that demonstrated stable aortic aneurysm. No PE was noted at that time.Chest x-ray performed showing no acute pulmonary process. There does appear to be cardiomegaly. Patient would benefit from inpatient admission due to dyspnea that is secondary to multiple factors. EKG interpretation: Ventricular rate 94, normal rhythm, ME interval 165, QS 121, QTC 414. No ME prolongation, no QTC prolongation, no ST or T-wave changes noted. EKG compared to 12/31/2021 showing no changes. Overall, this EKG is unremarkable - Related Data Home Medications Medication Instructions Recorded Confirmed Terazosin HCl 10 mg PO HS 05/29/18 12/31/21 Carbidopa/Levodopa [Sinemet 25-100 1.5 tab PO QID 12/31/21 12/31/21 mg Tablet] Losartan Potassium 100 mg PO W/LUNCH 12/31/21 12/31/21 Omeprazole 20 mg PO DAILY 12/31/21 12/31/21 Tamsulosin [Flomax] 0.4 mg PO HS 12/31/21 12/31/21 Previous Rx's Medication Instructions Recorded Albuterol Inhaler [Ventolin Hfa 2 puff INHALATION RT-Q4H #1 each 01/02/22 Inhaler] Budesonide-Formot 160-4.5 Mcg 2 puff INHALATION RT-BID #1 each 01/02/22 [Symbicort 160-4.5 Mcg Inhaler] Cefdinir [Omnicef] 300 mg PO BID 2 Days #4 cap 01/02/22 Metoprolol Succinate (ER) [Toprol 25 mg PO DAILY #30 tab 01/02/22 XL] amLODIPine [Norvasc] 5 mg PO BID #60 tab 01/02/22 predniSONE 10 mg PO DIRECTED #50 tab 01/02/22 Tamsulosin [Flomax] 0.4 mg PO HS #30 cap 01/14/22 Allergies Allergy/AdvReac Type Severity Reaction Status Date / Time No Known Allergies Allergy Verified 02/10/22 08:01 Review of Systems ROS Statement: Those systems with pertinent positive or pertinent negative responses have been documented in the HPI. ROS Other: All systems not noted in ROS Statement are negative. Past Medical History Past Medical History: COPD, Hyperlipidemia, Hypertension, Prostate Disorder Additional Past Medical History / Comment(s): PARKINSONs History of Any Multi-Drug Resistant Organisms: None Reported Past Surgical History: Appendectomy, Tonsillectomy Additional Past Surgical History / Comment(s): rt carpal tunnel release, colonoscopy/polypectomy(benign), Brain Stimulator implanted in brain with wires down to chest to a device in chest for Parkinsons- done at [place] Past Anesthesia/Blood Transfusion Reactions: No Reported Reaction Additional Past Anesthesia/Blood Transfusion Reaction / Comment(s): clausterphobia Past Psychological History: Depression Smoking Status: Current some day smoker, Light tobacco smoker Past Alcohol Use History: None Reported Past Drug Use History: Marijuana - Past Family History Mother Family Medical History: Cancer Additional Family Medical History / Comment(s): bone cancer Father Family Medical History: Coronary Artery Disease (CAD), Dementia Additional Family Medical History / Comment(s): cardiac stents General Exam Limitations: no limitations Course Vital Signs 02/10/22 02/10/22 02/10/22 07:57 08:33 08:43 Temperature 98.2 F Pulse Rate 101 H 80 79 Respiratory 24 Rate Blood Pressure 190/79 O2 Sat by Pulse 91 L Oximetry Medical Decision Making - Lab Data Result diagrams: 02/10/22 08:18 02/10/22 08:18 Lab Results 02/10/22 02/10/22 02/10/22 Range/Units 08:18 08:18 08:18 WBC 9.9 (3.8-10.6) k/uL RBC 4.45 (4.30-5.90) m/uL Hgb 13.8 (13.0-17.5) gm/dL Hct 43.4 (39.0-53.0) % MCV 97.4 (80.0-100.0) fL MCH 31.1 (25.0-35.0) pg MCHC 31.9 (31.0-37.0) g/dL RDW 14.2 (11.5-15.5) % Plt Count 183 (150-450) k/uL MPV 9.3 Neutrophils % 84 % Lymphocytes % 9 % Monocytes % 5 % Eosinophils % 1 % Basophils % 1 % Neutrophils # 8.3 H (1.3-7.7) k/uL Lymphocytes # 0.9 L (1.0-4.8) k/uL Monocytes # 0.5 (0-1.0) k/uL Eosinophils # 0.1 (0-0.7) k/uL Basophils # 0.1 (0-0.2) k/uL Sodium 140 (137-145) mmol/L Potassium 4.5 (3.5-5.1) mmol/L Chloride 108 H (98-107) mmol/L Carbon Dioxide 25 (22-30) mmol/L Anion Gap 7 mmol/L BUN 21 H (9-20) mg/dL Creatinine 1.01 (0.66-1.25) mg/dL Est GFR (CKD-EPI)AfAm >90 (>60 ml/min/1.73 sqM) Est GFR (CKD-EPI)NonAf 78 (>60 ml/min/1.73 sqM) Glucose 124 H (74-99) mg/dL Calcium 8.9 (8.4-10.2) mg/dL Troponin I 0.086 H* (0.000-0.034) ng/mL NT-Pro-B Natriuret Pep pg/mL Influenza Type A (PCR) (Not Detectd) Influenza Type B (PCR) (Not Detectd) RSV (PCR) (Not Detectd) SARS-CoV-2 (PCR) (Not Detectd) 02/10/22 02/10/22 Range/Units 08:18 08:18 WBC (3.8-10.6) k/uL RBC (4.30-5.90) m/uL Hgb (13.0-17.5) gm/dL Hct (39.0-53.0) % MCV (80.0-100.0) fL MCH (25.0-35.0) pg MCHC (31.0-37.0) g/dL RDW (11.5-15.5) % Plt Count (150-450) k/uL MPV Neutrophils % % Lymphocytes % % Monocytes % % Eosinophils % % Basophils % % Neutrophils # (1.3-7.7) k/uL Lymphocytes # (1.0-4.8) k/uL Monocytes # (0-1.0) k/uL Eosinophils # (0-0.7) k/uL Basophils # (0-0.2) k/uL Sodium (137-145) mmol/L Potassium (3.5-5.1) mmol/L Chloride (98-107) mmol/L Carbon Dioxide (22-30) mmol/L Anion Gap mmol/L BUN (9-20) mg/dL Creatinine (0.66-1.25) mg/dL Est GFR (CKD-EPI)AfAm (>60 ml/min/1.73 sqM) Est GFR (CKD-EPI)NonAf (>60 ml/min/1.73 sqM) Glucose (74-99) mg/dL Calcium (8.4-10.2) mg/dL Troponin I (0.000-0.034) ng/mL NT-Pro-B Natriuret Pep 9730 pg/mL Influenza Type A (PCR) Not Detected (Not Detectd) Influenza Type B (PCR) Not Detected (Not Detectd) RSV (PCR) Not Detected (Not Detectd) SARS-CoV-2 (PCR) Not Detected (Not Detectd) Disposition Clinical Impression: Congestive heart failure, COPD (chronic obstructive pulmonary disease) Disposition: ADMITTED IP TO THIS HOSP Condition: Fair Decision Time: 09:56
[2022-02-10 08:28] LABS: Basophils # (A) 0.1 k/uL (0-0.2); Basophils % (A) 1 %; Eosinophils # (A) 0.1 k/uL (0-0.7); Eosinophils % (A) 1 %; HCT 43.4 % (39.0-53.0); HGB 13.8 gm/dL (13.0-17.5); Lymphocytes # (A) 0.9 k/uL (1.0-4.8); Lymphocytes % (A) 9 %; MCH 31.1 pg (25.0-35.0); MCHC 31.9 g/dL (31.0-37.0); MCV 97.4 fL (80.0-100.0); Mean Platelet Volume 9.3; Monocytes # (A) 0.5 k/uL (0-1.0); Monocytes % (A) 5 %; Neutrophils # (A) 8.3 k/uL (1.3-7.7); Neutrophils % (A) 84 %; Platelet Count 183 k/uL (150-450); RBC 4.45 m/uL (4.30-5.90); RDW 14.2 % (11.5-15.5); WBC 9.9 k/uL (3.8-10.6)
[2022-02-10 08:46] LABS: African American GFR (CKD) >90 (>60 ml/min/1.73 sqM); Anion Gap 7 mmol/L; Blood Urea Nitrogen 21 mg/dL (9-20); Calcium 8.9 mg/dL (8.4-10.2); Carbon Dioxide 25 mmol/L (22-30); Chloride 108 mmol/L (98-107); Glucose 124 mg/dL (74-99); Non-African American GFR(CKD) 78 (>60 ml/min/1.73 sqM); Potassium 4.5 mmol/L (3.5-5.1); Sodium 140 mmol/L (137-145)
[2022-02-10] MEDS ORDERED: FUROSEMIDE 10 MG/ML 4 ML VIAL IV STA (09:15)
[2022-02-10] MEDS ORDERED: ASPIRIN 325 MG TAB PO STA (09:19)
[2022-02-10] MEDS ORDERED: IPRATROPIUM-ALBUTEROL 3 ML NEB INHALATION PRN (09:21)
[2022-02-10] MEDS ORDERED: NITROGLYCERIN OINT 1 INCH/GM PACKET TOPICAL STA (09:22)
--- NOTE | 2022-02-10 09:38 | XR ---
EXAMINATION TYPE: XR chest 2V DATE OF EXAM: 02/10/2022 COMPARISON: 12/31/2021 INDICATION: Dyspnea TECHNIQUE: Frontal and lateral views of the chest are obtained. FINDINGS: The heart size is enlarged. The pulmonary vasculature is normal. No suspicious consolidation.. His maker overlies left chest. IMPRESSION: 1. No acute pulmonary process. Follow-up can be performed as clinically indicated. 2. Cardiomegaly.
[2022-02-10] MEDS: SODIUM CHLORIDE 0.9% 1,000 ML IV SCH (11:34)
[2022-02-10] MEDS: IPRATROPIUM-ALBUTEROL 3 ML NEB INHALATION SCH ×3 (12:03→19:35)
[2022-02-10] MEDS: CARBIDOPA-LEVODOPA 25-100 MG 1 EACH TAB PO SCH ×3 (13:52→20:31)
--- NOTE | 2022-02-10 13:56 | P.CNPUL ---
History of Present Illness Consult date: 02/10/22 Requesting physician: Franko No Reason for consult: dyspnea Chief complaint: Shortness of breath History of present illness: 66-year-old male patient with past medical history of COPD, not oxygen dependent at baseline, nicotine dependence, Parkinson's disease, hypertension, hyperlipidemia, thoracic aortic aneurysm, mild CAD, nonobstructive, mild nonischemic cardiomyopathy, and moderate to severe aortic insufficiency and mitral regurgitation. Patient had a recent hospitalization in December 2021 for acute exacerbation of COPD. On 02/10/2022 patient came into the emergency department with complaints of worsening shortness of breath. Patient states he quit smoking about 3 days ago. Has been using inhalers without any relief, patient has a cough with no phlegm production, no complaints of chest discomfort, no fever or chills. His chest x-ray showing no acute pulmonary process, his white count was within normal limits at 9.9, hemoglobin is 13.8, sodium is 140, potassium is 4.5, chloride is 108, BUN is 21, creatinine is 1.01, troponin is 0.086, proBNP was elevated at 9730, influenza A and B, COVID-19 PCR and RSV were all negative. Does have a positive JVD but no significant peripheral edema noted, his most recent echocardiogram showing reduced LV systolic function, a large segment of apical hypokinesis and ejection fraction of 30%. There was trace to mild mitral regurgitation, and trace to mild tricuspid regurgitation. Patient is not on any diuretics on a regular basis. He is on Symbicort and albuterol inhalers for his history of COPD he recently saw Dr. Dolan in the office in follow-up post hospital discharge. Review of Systems All systems: negative Constitutional: Denies chills, Denies fever Eyes: denies blurred vision, denies pain Ears, nose, mouth and throat: Denies headache, Denies sore throat Cardiovascular: Denies chest pain, Denies shortness of breath Respiratory: Reports cough, Reports dyspnea Gastrointestinal: Denies abdominal pain, Denies diarrhea, Denies nausea, Denies vomiting Musculoskeletal: Denies myalgias Integumentary: Denies pruritus, Denies rash Neurological: Denies numbness, Denies weakness Psychiatric: Denies anxiety, Denies depression Endocrine: Denies fatigue, Denies weight change Past Medical History Past Medical History: COPD, Hyperlipidemia, Hypertension, Prostate Disorder Additional Past Medical History / Comment(s): PARKINSONs History of Any Multi-Drug Resistant Organisms: None Reported Past Surgical History: Appendectomy, Tonsillectomy Additional Past Surgical History / Comment(s): rt carpal tunnel release, colonoscopy/polypectomy(benign), Brain Stimulator implanted in brain with wires down to chest to a device in chest for Parkinsons- done at [place] Past Anesthesia/Blood Transfusion Reactions: No Reported Reaction Additional Past Anesthesia/Blood Transfusion Reaction / Comment(s): clausterphobia Smoking Status: Current some day smoker, Light tobacco smoker - Past Family History Mother Family Medical History: Cancer Additional Family Medical History / Comment(s): bone cancer Father Family Medical History: Coronary Artery Disease (CAD), Dementia Additional Family Medical History / Comment(s): cardiac stents Medications and Allergies Home Medications Medication Instructions Recorded Confirmed Type Terazosin HCl 10 mg PO HS 05/29/18 02/10/22 History Carbidopa/Levodopa [Sinemet 25-100 1.5 tab PO QID 12/31/21 02/10/22 History mg Tablet] Omeprazole 20 mg PO DAILY 12/31/21 02/10/22 History Albuterol Inhaler [Ventolin Hfa 2 puff INHALATION RT-Q4H #1 each 01/02/22 02/10/22 Rx Inhaler] Budesonide-Formot 160-4.5 Mcg 2 puff INHALATION RT-BID #1 each 01/02/22 02/10/22 Rx [Symbicort 160-4.5 Mcg Inhaler] Metoprolol Succinate (ER) [Toprol 25 mg PO DAILY #30 tab 01/02/22 02/10/22 Rx XL] amLODIPine [Norvasc] 5 mg PO BID #60 tab 01/02/22 02/10/22 Rx Tamsulosin [Flomax] 0.4 mg PO HS #30 cap 01/14/22 02/10/22 Rx Allergies Allergy/AdvReac Type Severity Reaction Status Date / Time No Known Allergies Allergy Verified 02/10/22 11:41 Physical Exam Vitals: Vital Signs Temp Pulse Resp BP Pulse Ox 02/10/22 12:13 77 02/10/22 12:03 84 02/10/22 10:36 84 24 141/76 95 02/10/22 08:43 79 02/10/22 08:33 80 02/10/22 07:57 98.2 F 101 H 24 190/79 91 L Intake and Output 02/09/22 02/10/22 02/10/22 22:59 06:59 14:59 Other: Weight 111.13 kg GENERAL EXAM: Alert, very pleasant, 66-year-old white male, on 2 L of oxygen with pulse ox of 93% moderately short of breath with conversation comfortable in no apparent distress. HEAD: Normocephalic/atraumatic. EYES: Normal reaction of pupils, equal size. Conjunctiva pink, sclera white. NOSE: Clear with pink turbinates. THROAT: No erythema or exudates. NECK: No masses, positive JVD, no thyroid enlargement, no adenopathy. CHEST: No chest wall deformity. Symmetrical expansion. LUNGS: Equal air entry with diffuse lung wheezes CVS: Regular rate and rhythm, normal S1 and S2, no gallops, no murmurs, no rubs ABDOMEN: Soft, nontender. No hepatosplenomegaly, normal bowel sounds, no guarding or rigidity. EXTREMITIES: No clubbing, no edema, no cyanosis, 2+ pulses and upper and lower extremities. MUSCULOSKELETAL: Muscle strength and tone normal. SPINE: No scoliosis or deformity SKIN: No rashes CENTRAL NERVOUS SYSTEM: Alert and oriented -3. No focal deficits, tone is normal in all 4 extremities. PSYCHIATRIC: Alert and oriented -3. Appropriate affect. Intact judgment and insight. Results - Laboratory Findings CBC and BMP: 02/10/22 08:18 02/10/22 08:18 Abnormal lab findings: Abnormal Labs 02/10/22 02/10/22 02/10/22 08:18 08:18 08:18 Neutrophils # 8.3 H Lymphocytes # 0.9 L Chloride 108 H BUN 21 H Glucose 124 H Troponin I 0.086 H* - Diagnostic Findings Chest x-ray: report reviewed, image reviewed Assessment and Plan Plan: Assessment: #1. Acute exacerbation of COPD #2. Acute exacerbation of systolic CHF #3. Acute hypoxic respiratory failure related to the above #4. Nicotine dependence #5. Parkinson's disease #6. Hypertension #7. Hyperlipidemia #8. Thoracic aortic aneurysm #9. Coronary artery disease, mild nonobstructive #10. Nonischemic cardiomyopathy with EF of 30% #11. Moderate to severe aortic insufficiency and mitral regurgitation Plan: Continue nebulized bronchodilators Continue IV diuretics with Lasix 40 mg every 8 hours Resume patient's Symbicort Continue IV steroids We'll continue to cause critical course I have personally seen and examined the patient, performed the documentation and the assessment and plan as written. Number of minutes spent on the visit: [ 15] Time with Patient: Greater than 30
[2022-02-10 16:18] LABS: Glucose,Whole Blood 221 mg/dL (70-110)
[2022-02-10] MEDS ORDERED: DEXTROSE 50% SYRINGE 50 ML IVP PRN ×2 (16:44)
[2022-02-10] MEDS: FUROSEMIDE 40 MG TAB PO SCH (17:17)
[2022-02-10] MEDS: INSULIN ASPART (NovoLOG) 100 UNIT/ML VIAL SQ SCH ×2 (17:19→20:32)
[2022-02-10] MEDS: methylPREDNISolone SOD SUCCI 40 MG/ML 1 ML VIAL IV SCH (17:19)
[2022-02-10 19:34] LABS: Glucose,Whole Blood 254 mg/dL (70-110)
[2022-02-10] MEDS: SYMBICORT 160-4.5 MCG INHALER INHALATION SCH (19:35)
[2022-02-10] MEDS: amLODIPine 5 MG TAB PO SCH (20:32)
--- NOTE | 2022-02-10 22:13 | P.HPIM ---
History of Present Illness this is a pleasant 66 years old male with past medical history of COPD, hypertension, hyperlipidemia, depression, Parkinson disease status post brain stimulator, depression, current cigarette smoker, thoracic aortic aneurysm Patient states that he is been complaining of from dyspnea for several weeks however it was really bad last night so he decided to come to the emergency room Also patient complaining of from cough with little yellow phlegm. But no chest pain. No diarrhea or abdominal pain or vomiting. No urinary complaints. He is a smoker and he states that he quit about a week ago, he did not specify how much is been smoking but he was counseled to quit and he agrees. He declined nicotine patch. No alcohol or illicit drugs. Is not on home oxygen and he follows up with Dr. Dolan on admission patient with a tachycardic,he is saturating 91% on room air and 95% on 2 L oxygen via nasal cannula. afebrile labs showing unremarkable CBC, BMP, liver enzymes. Upon and is elevated at 0.08 and proBNP 9730. Influenza, Covid, RSV viruses are undetected EKG showing normal sinus rhythm at 94 with some LVH criteria but no significant ST-T changes. in the emergency room he received steroids, Review of Systems Review of systems CONSTITUTIONAL: No fever, no malaise, no fatigue. HEENT: No recent visual problems or hearing problems. Denied any sore throat. CARDIOVASCULAR: No orthopnea, PND, no palpitations, no syncope. PULMONARY: No chest wall tenderness, no hemoptysis. GASTROINTESTINAL: No diarrhea, no nausea, no vomiting, no abdominal pain. Normoactive bowel sounds. NEUROLOGICAL: No headaches, no weakness, no numbness. HEMATOLOGICAL: Denies any bleeding or petechiae. GENITOURINARY: Denies any burning micturition, frequency, or urgency. MUSCULOSKELETAL/RHEUMATOLOGICAL: Denies any joint pain, swelling, or any muscle pain. ENDOCRINE: Denies any polyuria or polydipsia. Past Medical History Past Medical History: COPD, Hyperlipidemia, Hypertension, Prostate Disorder Additional Past Medical History / Comment(s): PARKINSONs History of Any Multi-Drug Resistant Organisms: None Reported Past Surgical History: Appendectomy, Tonsillectomy Additional Past Surgical History / Comment(s): rt carpal tunnel release, colonoscopy/polypectomy(benign), Brain Stimulator implanted in brain with wires down to chest to a device in chest for Parkinsons- done at [place] Past Anesthesia/Blood Transfusion Reactions: No Reported Reaction Additional Past Anesthesia/Blood Transfusion Reaction / Comment(s): clausterphobia Smoking Status: Current some day smoker, Light tobacco smoker - Past Family History Mother Family Medical History: Cancer Additional Family Medical History / Comment(s): bone cancer Father Family Medical History: Coronary Artery Disease (CAD), Dementia Additional Family Medical History / Comment(s): cardiac stents Medications and Allergies Home Medications Medication Instructions Recorded Confirmed Type Terazosin HCl 10 mg PO HS 05/29/18 02/10/22 History Carbidopa/Levodopa [Sinemet 25-100 1.5 tab PO QID 12/31/21 02/10/22 History mg Tablet] Omeprazole 20 mg PO DAILY 12/31/21 02/10/22 History Albuterol Inhaler [Ventolin Hfa 2 puff INHALATION RT-Q4H #1 each 01/02/22 02/10/22 Rx Inhaler] Budesonide-Formot 160-4.5 Mcg 2 puff INHALATION RT-BID #1 each 01/02/22 02/10/22 Rx [Symbicort 160-4.5 Mcg Inhaler] Metoprolol Succinate (ER) [Toprol 25 mg PO DAILY #30 tab 01/02/22 02/10/22 Rx XL] amLODIPine [Norvasc] 5 mg PO BID #60 tab 01/02/22 02/10/22 Rx Tamsulosin [Flomax] 0.4 mg PO HS #30 cap 01/14/22 02/10/22 Rx Allergies Allergy/AdvReac Type Severity Reaction Status Date / Time No Known Allergies Allergy Verified 02/10/22 11:41 Physical Exam Vitals: Vital Signs Temp Pulse Resp BP Pulse Ox 02/10/22 10:36 84 24 141/76 95 02/10/22 08:43 79 02/10/22 08:33 80 02/10/22 07:57 98.2 F 101 H 24 190/79 91 L Intake and Output 02/09/22 02/10/22 02/10/22 22:59 06:59 14:59 Other: Weight 111.13 kg GENERAL: The patient is alert and oriented x3, not in any acute distress. Well developed, well nourished. HEENT: Pupils are round and equally reacting to light. EOMI. No scleral icterus. No conjunctival pallor. Normocephalic, atraumatic. No pharyngeal erythema. No thyromegaly. CARDIOVASCULAR: S1 and S2 present. No murmurs, rubs, or gallops. -PULMONARY: Chest is clear to auscultation, mild bilateral crackles. scattered wheezing ABDOMEN: Soft, nontender, nondistended, normoactive bowel sounds. No palpable organomegaly. MUSCULOSKELETAL: No joint swelling or deformity. -EXTREMITIES: No cyanosis, clubbing,. Bilateral pedal edema. NEUROLOGICAL: Gross neurological examination did not reveal any focal deficits. SKIN: No rashes. no petechiae. Results CBC & Chem 7: 02/10/22 08:18 02/10/22 08:18 Labs: Abnormal Lab Results - Last 24 Hours (Table) 02/10/22 02/10/22 02/10/22 Range/Units 08:18 08:18 08:18 Neutrophils # 8.3 H (1.3-7.7) k/uL Lymphocytes # 0.9 L (1.0-4.8) k/uL Chloride 108 H (98-107) mmol/L BUN 21 H (9-20) mg/dL Glucose 124 H (74-99) mg/dL Troponin I 0.086 H* (0.000-0.034) ng/mL Thrombosis Risk Factor Assmnt - Choose All That Apply Any of the Below Risk Factors Present?: Yes Each Factor Represents 1 point: Abnormal pulmonary function (COPD), Obesity (BMI >25) Other Risk Factors: Yes Each Risk Factor Represents 2 Points: Age 61-74 years Each Risk Factor Represents 3 Points: History of DVT/PE Other congenital or acquired thrombophilia - If yes, enter type in comment: No Thrombosis Risk Factor Assessment Total Risk Factor Score: 7 Thrombosis Risk Factor Assessment Level: High Risk Assessment and Plan Assessment: Acute COPD exacerbation elevated troponin, rule out acute coronary syndrome possible acute CHF exacerbation nicotine dependence History of thoracic aortic aneurysm Hypertension Hyperlipidemia History of Parkinson disease status post brain stimulator Plan: this is a pleasant 66 years old male who presents with COPD exacerbation Continue with steroids Continue with IV Lasix Continue with bronchodilator Pulmonary team consult. cardiology team consult. And continue with aspirin Labs and medication were reviewed.. Continue same treatment. Continue with symptomatic treatment. Resume home medication. Monitor lytes and vitals. DVT and GI prophylaxis. Further recommendations as per clinical course of the patient DVT prophylaxis: Subcutaneous heparin GI Prophylaxis: Pepcid PT/OT: Pending Prognosis is guarded
[2022-02-11] MEDS: FUROSEMIDE 40 MG TAB PO SCH ×2 (00:27→09:43)
[2022-02-11] MEDS: methylPREDNISolone SOD SUCCI 40 MG/ML 1 ML VIAL IV SCH ×4 (00:27→23:41)
[2022-02-11 06:00] LABS: Glucose,Whole Blood 356 mg/dL (70-110)
[2022-02-11] MEDS: INSULIN ASPART (NovoLOG) 100 UNIT/ML VIAL SQ SCH ×4 (06:39→20:55)
[2022-02-11] MEDS: IPRATROPIUM-ALBUTEROL 3 ML NEB INHALATION SCH ×4 (07:38→19:19)
[2022-02-11] MEDS: SYMBICORT 160-4.5 MCG INHALER INHALATION SCH ×2 (07:38→19:19)
[2022-02-11] MEDS: amLODIPine 5 MG TAB PO SCH (09:42)
[2022-02-11] MEDS: CARBIDOPA-LEVODOPA 25-100 MG 1 EACH TAB PO SCH ×4 (09:42→20:55)
[2022-02-11] MEDS: ASPIRIN 81 MG PO SCH (09:42)
[2022-02-11] MEDS: METOPROLOL SUCCINATE (ER) 25 MG TAB.ER.24H PO SCH (09:43)
[2022-02-11] MEDS: SODIUM CHLORIDE 0.9% 1,000 ML IV SCH (09:52)
[2022-02-11 12:21] LABS: Glucose,Whole Blood 155 mg/dL (70-110)
--- NOTE | 2022-02-11 12:44 | P.PN ---
Subjective Progress Note Date: 02/11/22 Principal diagnosis: Shortness of breath 66-year-old male patient with past medical history of COPD, not oxygen dependent at baseline, nicotine dependence, Parkinson's disease, hypertension, hyperlipidemia, thoracic aortic aneurysm, mild CAD, nonobstructive, mild nonischemic cardiomyopathy, and moderate to severe aortic insufficiency and mitral regurgitation. Patient had a recent hospitalization in December 2021 for acute exacerbation of COPD. On 02/10/2022 patient came into the emergency department with complaints of worsening shortness of breath. Patient states he quit smoking about 3 days ago. Has been using inhalers without any relief, patient has a cough with no phlegm production, no complaints of chest discomfort, no fever or chills. His chest x-ray showing no acute pulmonary process, his white count was within normal limits at 9.9, hemoglobin is 13.8, sodium is 140, potassium is 4.5, chloride is 108, BUN is 21, creatinine is 1.01, troponin is 0.086, proBNP was elevated at 9730, influenza A and B, COVID-19 PCR and RSV were all negative. Does have a positive JVD but no significant peripheral edema noted, his most recent echocardiogram showing reduced LV systolic function, a large segment of apical hypokinesis and ejection fraction of 30%. There was trace to mild mitral regurgitation, and trace to mild tricuspid regurgitation. Patient is not on any diuretics on a regular basis. He is on Symbicort and albuterol inhalers for his history of COPD he recently saw Dr. Dolan in the office in follow-up post hospital discharge. On 02/11/2022 patient seen in follow-up on medical surgical floor. He is breathing easier, he is on 2 L of oxygen pulse ox is 93%. No acute events overnight, no chest discomfort, no worsening dyspnea or cough. He continues on nebulized bronchodilators, IV steroids and IV Lasix. His had no fever or chills, no phlegm production, no hemoptysis or chest discomfort Objective - Vital Signs Vital signs: Vital Signs Temp 98.3 F 02/11/22 08:00 Pulse 77 02/11/22 11:32 Resp 19 02/11/22 08:00 BP 138/78 02/11/22 08:00 Pulse Ox 93 L 02/11/22 08:00 FiO2 Intake & Output 02/10/22 02/11/2222 18:59 06:59 18:59 Intake Total 10 500 Balance 10 500 Weight 111.13 kg Intake: IV 10 Invasive Line 2 10 Oral 500 Other: Voiding Method Toilet Toilet # Voids 2 - Exam GENERAL EXAM: Alert, very pleasant, 66-year-old white male, on 2 L of oxygen with pulse ox of 93% moderately short of breath with conversation comfortable in no apparent distress. HEAD: Normocephalic/atraumatic. EYES: Normal reaction of pupils, equal size. Conjunctiva pink, sclera white. NOSE: Clear with pink turbinates. THROAT: No erythema or exudates. NECK: No masses, positive JVD, no thyroid enlargement, no adenopathy. CHEST: No chest wall deformity. Symmetrical expansion. LUNGS: Equal air entry with diffuse lung wheezes CVS: Regular rate and rhythm, normal S1 and S2, no gallops, no murmurs, no rubs ABDOMEN: Soft, nontender. No hepatosplenomegaly, normal bowel sounds, no guarding or rigidity. EXTREMITIES: No clubbing, no edema, no cyanosis, 2+ pulses and upper and lower extremities. MUSCULOSKELETAL: Muscle strength and tone normal. SPINE: No scoliosis or deformity SKIN: No rashes CENTRAL NERVOUS SYSTEM: Alert and oriented -3. No focal deficits, tone is normal in all 4 extremities. PSYCHIATRIC: Alert and oriented -3. Appropriate affect. Intact judgment and insight. - Labs CBC & Chem 7: 02/10/22 08:18 02/10/22 08:18 Labs: Abnormal Lab Results - Last 24 Hours (Table) 02/10/22 02/10/22 02/11/22 Range/Units 16:16 19:32 05:58 POC Glucose (mg/dL) 221 H 254 H 356 H (70-110) mg/dL 02/11/22 Range/Units 12:20 POC Glucose (mg/dL) 155 H (70-110) mg/dL Assessment and Plan Plan: Assessment: #1. Acute exacerbation of COPD #2. Acute exacerbation of systolic CHF #3. Acute hypoxic respiratory failure related to the above #4. Nicotine dependence #5. Parkinson's disease #6. Hypertension #7. Hyperlipidemia #8. Thoracic aortic aneurysm #9. Coronary artery disease, mild nonobstructive #10. Nonischemic cardiomyopathy with EF of 30% #11. Moderate to severe aortic insufficiency and mitral regurgitation Plan: Patient is breathing easier Vital signs have been stable Continues on IV diuretics Continues on IV steroids and bronchodilators Cardiology recommendations From pulmonary perspective patient can be considered for discharge home in the next 24 hours if he continues to improve I have personally seen and examined the patient, performed the documentation and the assessment and plan as written. Number of minutes spent on the visit: [15] Time with Patient: Less than 30
--- NOTE | 2022-02-11 14:57 | P.CRDCN ---
History of Present Illness History of present illness: HISTORY OF PRESENTING ILLNESS Patient is a pleasant 66-year-old male with a history of COPD, tobacco abuse, Parkinson's disease, hypertension, hyperlipidemia, thoracic aortic aneurysm, mild CAD by heart catheterization in 2018, nonischemic cardiac myopathy, moderate to severe aortic insufficiency however improved to mild to moderate but most recent echo 12/2021 who presents for continued shortness breath. He had been seen a proximally 6 weeks ago, 01/01/2022 with dyspnea and had been treated for heart failure with some improvement however has continued to have significant dyspnea with minimal exertion. He denies any chest pain or pressure. Last hospitalization he did have continued mildly elevated troponins. He is unsure of much of his medical history and states that "should be in the records ". Believes his last heart catheterization was 2017. States he has been compliant with his medications. Denies any recent fevers, chills, cough. He did quit smoking a proximally 6 days ago however has not really helped. He did have CT performed 02/05 outpatient for monitoring of his thoracic aortic aneurysm by Dr. Harrison. This showed stable aneurysm however interstitial findi ngs consistent with early heart failure. Eating potato chips throughout exam and suspect noncompliance with low salt diet however he denies. REVIEW OF SYSTEMS At the time of my exam: CONSTITUTIONAL: Denies fever or chills. CARDIOVASCULAR: Denies chest pain, +shortness of breath, denies orthopnea, PND or palpitations. RESPIRATORY: Denies cough. GASTROINTESTINAL: Denies abdominal pain, diarrhea, constipation, nausea or vomiting. MUSCULOSKELETAL: Denies myalgias. NEUROLOGIC: Denies numbness, tingling or weakness. ENDOCRINE: Denies fatigue, weight change, polydipsia or polyurina. GENITOURINARY: Denies burning, hematuria or urgency with micturation. HEMATOLOGIC: Denies history of anemia or bleeding. PHYSICAL EXAMINATION Vital signs reviewed. CONSTITUTIONAL: No apparent distress, chronically ill appearing HEENT: Head is normocephalic. Pupils are equal, round. Sclerae anicteric. Mucous membranes of the mouth are moist. No JVD. No carotid bruit. CHEST EXAMINATION: +decreased breath sounds at bases, + wheeze bilaterally HEART EXAMINATION: Regular rate and rhythm. S1, S2 heard. No murmurs, gallops or rub. ABDOMEN: Soft, nontender. Positive bowel sounds. EXTREMITIES: 2+ peripheral pulses, no lower extremity edema and no calf tenderness. NEUROLOGIC EXAMINATION: Patient is awake, alert and oriented x3. ASSESSMENT 1. Acute on chronic systolic heart failure 2. Acute on chronic respiratory failure suspect component of heart failure as well as COPD 3. Mildly elevated troponins, have been elevated in the past 4. History of cardiomyopathy, previously nonischemic in the past 5. Tobacco abuse 6. Thoracic aortic aneurysm, stable by most recent CT 02/05 7. Aortic insufficiency, previous concern of moderate to severe however or mild to moderate by most recent echo 8. Mild CAD by heart catheterization 2018 PLAN Change diuretics to IV and monitor response. Question low-compliance with low salt diet. Suspect main component of heart failure plus additional component of COPD and tobacco abuse. Monitor results of diuresis however patient has not returned to his baseline and may consider heart catheterization if patient has not progressed to rule out any underlying CAD. Further recommendations to follow. Past Medical History Past Medical History: COPD, Hyperlipidemia, Hypertension, Prostate Disorder Additional Past Medical History / Comment(s): PARKINSONs History of Any Multi-Drug Resistant Organisms: None Reported Past Surgical History: Appendectomy, Tonsillectomy Additional Past Surgical History / Comment(s): rt carpal tunnel release, colonoscopy/polypectomy(benign), Brain Stimulator implanted in brain with wires down to chest to a device in chest for Parkinsons- done at [facility] Past Anesthesia/Blood Transfusion Reactions: No Reported Reaction Additional Past Anesthesia/Blood Transfusion Reaction / Comment(s): clausterphobia Smoking Status: Current some day smoker, Light tobacco smoker - Past Family History Mother Family Medical History: Cancer Additional Family Medical History / Comment(s): bone cancer Father Family Medical History: Coronary Artery Disease (CAD), Dementia Additional Family Medical History / Comment(s): cardiac stents Medications and Allergies Home Medications Medication Instructions Recorded Confirmed Type Terazosin HCl 10 mg PO HS 05/29/18 02/10/22 History Carbidopa/Levodopa [Sinemet 25-100 1.5 tab PO QID 12/31/21 02/10/22 History mg Tablet] Omeprazole 20 mg PO DAILY 12/31/21 02/10/22 History Albuterol Inhaler [Ventolin Hfa 2 puff INHALATION RT-Q4H #1 each 01/02/22 02/10/22 Rx Inhaler] Budesonide-Formot 160-4.5 Mcg 2 puff INHALATION RT-BID #1 each 01/02/22 02/10/22 Rx [Symbicort 160-4.5 Mcg Inhaler] Metoprolol Succinate (ER) [Toprol 25 mg PO DAILY #30 tab 01/02/22 02/10/22 Rx XL] amLODIPine [Norvasc] 5 mg PO BID #60 tab 01/02/22 02/10/22 Rx Tamsulosin [Flomax] 0.4 mg PO HS #30 cap 01/14/22 02/10/22 Rx Allergies Allergy/AdvReac Type Severity Reaction Status Date / Time No Known Allergies Allergy Verified 02/10/22 11:41 Physical Exam Vitals: Vital Signs Temp Pulse Pulse Resp BP Pulse Ox 02/11/22 11:32 77 02/11/22 11:19 76 02/11/22 08:00 98.3 F 83 19 138/78 93 L 02/11/22 07:50 75 02/11/22 07:38 74 02/11/22 04:00 97.5 F L 73 19 156/73 93 L 02/10/22 23:30 97.5 F L 96 23 161/88 93 L 02/10/22 19:48 80 02/10/22 19:37 92 L 02/10/22 19:36 78 02/10/22 19:30 98.4 F 84 22 160/83 94 L 02/10/22 16:00 97.8 F 82 22 144/79 94 L 02/10/22 15:12 86 02/10/22 15:01 84 Intake and Output 02/10/22 02/11/22 02/11/22 22:59 06:59 14:59 Intake Total 10 680 Balance 10 680 Intake: IV 10 Invasive Line 2 10 Oral 680 Other: Voiding Method Toilet Toilet # Voids 2 Results 02/10/22 08:18 02/10/22 08:18 Current Medications Generic Name Dose Route Start Last Admin Trade Name Freq PRN Reason Stop Dose Admin Albuterol/Ipratropium 3 ml 02/10/22 09:21 Ipratropium-Albuterol 3 Ml Neb INHALATION RT-Q2H PRN Shortness Of Breath Or Wheezing Albuterol/Ipratropium 3 ml 02/10/22 12:00 02/11/22 11:19 Ipratropium-Albuterol 3 Ml Neb INHALATION 3 ml RT-QID MICHELLE Administration Amlodipine Besylate 5 mg 02/10/22 21:00 02/11/22 09:42 Amlodipine 5 Mg Tab PO 5 mg BID MICHELLE Administration Aspirin 81 mg 02/11/22 09:00 02/11/22 09:42 Aspirin 81 Mg PO 81 mg DAILY MICHELLE Administration Budesonide/Formoterol Fumarate 2 puff 02/10/22 20:00 02/11/22 07:38 Symbicort 160-4.5 Mcg Inhaler INHALATION 2 puff RT-BID MICHELLE Administration Carbidopa/Levodopa 1.5 each 02/10/22 13:00 02/11/22 12:16 Carbidopa-Levodopa 25-100 Mg 1 Each Tab PO 1.5 each QID MICHELLE Administration Dextrose/Water 25 ml 02/10/22 16:44 Dextrose 50% Syringe 50 Ml IVP PER PROTOCOL PRN Hypoglycemia Protocol Dextrose/Water 50 ml 02/10/22 16:44 Dextrose 50% Syringe 50 Ml IVP PER PROTOCOL PRN Hypoglycemia Protocol Furosemide 40 mg 02/10/22 16:00 02/11/22 09:43 Furosemide 40 Mg Tab PO 40 mg Q8HR MICHELLE Administration Sodium Chloride 1,000 mls @ 20 mls/hr 02/10/22 09:30 02/11/22 09:52 Saline 0.9% IV Not Given .Q24H MICHELLE Insulin Aspart 0 unit 02/10/22 17:30 02/11/22 13:02 Insulin Aspart (Novolog) 100 Unit/Ml Vial SQ 3 unit ACHS MICHELLE Administration Protocol Methylprednisolone Sodium Succinate 40 mg 02/10/22 16:00 02/11/22 09:43 Methylprednisolone Sod Succi 40 Mg/Ml 1 Ml Vial IV 40 mg Q8HR MICHELLE Administration Metoprolol Succinate 25 mg 02/11/22 09:00 02/11/22 09:43 Metoprolol Succinate (Er) 25 Mg Tab.Er.24h PO 25 mg DAILY MICHELLE Administration Intake and Output 02/10/22 02/11/22 02/11/22 22:59 06:59 14:59 Intake Total 10 680 Balance 10 680 Intake: IV 10 Invasive Line 2 10 Oral 680 Other: Voiding Method Toilet Toilet # Voids 2 02/10/22 08:18 02/10/22 08:18
[2022-02-11] MEDS: FUROSEMIDE 10 MG/ML 4 ML VIAL IV SCH ×2 (16:20→23:42)
[2022-02-11 16:38] LABS: Glucose,Whole Blood 183 mg/dL (70-110)
--- NOTE | 2022-02-11 18:11 | P.PN ---
Subjective this is a pleasant 66 years old male with past medical history of COPD, hypertension, hyperlipidemia, depression, Parkinson disease status post brain stimulator, depression, current cigarette smoker, thoracic aortic aneurysm Patient states that he is been complaining of from dyspnea for several weeks however it was really bad last night so he decided to come to the emergency room Also patient complaining of from cough with little yellow phlegm. But no chest pain. No diarrhea or abdominal pain or vomiting. No urinary complaints. He is a smoker and he states that he quit about a week ago, he did not specify how much is been smoking but he was counseled to quit and he agrees. He declined nicotine patch. No alcohol or illicit drugs. Is not on home oxygen and he follows up with Dr. Dolan on admission patient with a tachycardic,he is saturating 91% on room air and 95% on 2 L oxygen via nasal cannula. afebrile labs showing unremarkable CBC, BMP, liver enzymes. Upon and is elevated at 0.08 and proBNP 9730. Influenza, Covid, RSV viruses are undetected EKG showing normal sinus rhythm at 94 with some LVH criteria but no significant ST-T changes. in the emergency room he received steroids, 02/11/1922 Patient reports improvement in his breathing and coughing pattern. No chest pain However and exam still has significant wheezing and history of ventilator oxygen via nasal cannula Echocardiogram showed ejection fraction of 30% with apical hypokinesia on 12/14/2021. Currently he is on Solu-Medrol 40 mg and IV Lasix 40 mg twice daily. Aspirin 81 mg added as well as losartan 25 mg Objective - Vital Signs Vital signs: Vital Signs Temp 98.3 F 02/11/22 08:00 Pulse 77 02/11/22 11:32 Resp 19 02/11/22 08:00 BP 138/78 02/11/22 08:00 Pulse Ox 93 L 02/11/22 08:00 FiO2 Intake & Output 02/10/22 02/11/22 02/11/22 18:59 06:59 18:59 Intake Total 10 500 Balance 10 500 Weight 111.13 kg Intake: IV 10 Invasive Line 2 10 Oral 500 Other: Voiding Method Toilet Toilet # Voids 2 - Exam GENERAL: The patient is alert and oriented x3, not in any acute distress. Well developed, well nourished. HEENT: Pupils are round and equally reacting to light. EOMI. No scleral icterus. No conjunctival pallor. Normocephalic, atraumatic. No pharyngeal erythema. No thyromegaly. CARDIOVASCULAR: S1 and S2 present. No murmurs, rubs, or gallops. -PULMONARY: Chest is clear to auscultation, bilateral expiratory wheezing ABDOMEN: Soft, nontender, nondistended, normoactive bowel sounds. No palpable organomegaly. MUSCULOSKELETAL: No joint swelling or deformity. -EXTREMITIES: No cyanosis, clubbing, bilateral pitting leg edema neurological examination did not reveal any focal deficits. SKIN: No rashes. no petechiae. 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 cardiology team consult. And continue with aspirin Labs and medication were reviewed.. Continue same treatment. Continue with symptomatic treatment. Resume home medication. Monitor lytes and vitals. DVT and GI prophylaxis. Further recommendations as per clinical course of the patient DVT prophylaxis: Subcutaneous heparin GI Prophylaxis: Pepcid PT/OT: Pending Prognosis is guarded
[2022-02-11 19:47] LABS: Glucose,Whole Blood 183 mg/dL (70-110)
[2022-02-12 06:15] LABS: Glucose,Whole Blood 137 mg/dL (70-110)
[2022-02-12] MEDS: INSULIN ASPART (NovoLOG) 100 UNIT/ML VIAL SQ SCH ×4 (06:21→20:00)
[2022-02-12 07:42] LABS: Basophils % (A) 0 %; Eosinophils # (A) 0.2 k/uL (0-0.7); Eosinophils % (A) 1 %; HCT 45.5 % (39.0-53.0); HGB 14.3 gm/dL (13.0-17.5); Lymphocytes # (A) 0.5 k/uL (1.0-4.8); Lymphocytes % (A) 3 %; MCH 31.2 pg (25.0-35.0); MCHC 31.5 g/dL (31.0-37.0); MCV 99.1 fL (80.0-100.0); Mean Platelet Volume 9.4; Monocytes # (A) 0.5 k/uL (0-1.0); Monocytes % (A) 3 %; Neutrophils # (A) 16.1 k/uL (1.3-7.7); Neutrophils % (A) 93 %; Platelet Count 201 k/uL (150-450); RBC 4.59 m/uL (4.30-5.90); RDW 14.3 % (11.5-15.5); WBC 17.3 k/uL (3.8-10.6)
[2022-02-12 07:59] LABS: Calcium 8.3 mg/dL (8.4-10.2); Potassium 4.5 mmol/L (3.5-5.1)
[2022-02-12] MEDS: CARBIDOPA-LEVODOPA 25-100 MG 1 EACH TAB PO SCH ×4 (08:23→19:59)
[2022-02-12] MEDS: METOPROLOL SUCCINATE (ER) 25 MG TAB.ER.24H PO SCH (08:23)
[2022-02-12] MEDS: FUROSEMIDE 10 MG/ML 4 ML VIAL IV SCH ×2 (08:23→20:00)
[2022-02-12] MEDS: ASPIRIN 81 MG PO SCH (08:23)
[2022-02-12] MEDS: methylPREDNISolone SOD SUCCI 40 MG/ML 1 ML VIAL IV SCH ×3 (08:25→23:30)
[2022-02-12] MEDS: IPRATROPIUM-ALBUTEROL 3 ML NEB INHALATION SCH ×4 (08:33→20:08)
[2022-02-12] MEDS: SYMBICORT 160-4.5 MCG INHALER INHALATION SCH ×2 (08:33→20:08)
[2022-02-12] MEDS ORDERED: LOSARTAN 25 MG TAB PO SCH (09:00)
[2022-02-12] MEDS ORDERED: LOSARTAN 25 MG TAB PO STA (09:24)
[2022-02-12] MEDS: SPIRONOLACTONE 25 MG TAB PO SCH (10:21)
[2022-02-12] MEDS: SODIUM CHLORIDE 0.9% 1,000 ML IV SCH (10:45)
[2022-02-12 11:49] LABS: Glucose,Whole Blood 122 mg/dL (70-110)
--- NOTE | 2022-02-12 13:01 | P.PN ---
Subjective this is a pleasant 66 years old male with past medical history of COPD, hypertension, hyperlipidemia, depression, Parkinson disease status post brain stimulator, depression, current cigarette smoker, thoracic aortic aneurysm Patient states that he is been complaining of from dyspnea for several weeks however it was really bad last night so he decided to come to the emergency room Also patient complaining of from cough with little yellow phlegm. But no chest pain. No diarrhea or abdominal pain or vomiting. No urinary complaints. He is a smoker and he states that he quit about a week ago, he did not specify how much is been smoking but he was counseled to quit and he agrees. He declined nicotine patch. No alcohol or illicit drugs. Is not on home oxygen and he follows up with Dr. Dolan on admission patient with a tachycardic,he is saturating 91% on room air and 95% on 2 L oxygen via nasal cannula. afebrile labs showing unremarkable CBC, BMP, liver enzymes. Upon and is elevated at 0.08 and proBNP 9730. Influenza, Covid, RSV viruses are undetected EKG showing normal sinus rhythm at 94 with some LVH criteria but no significant ST-T changes. in the emergency room he received steroids, 02/11/1922 Patient reports improvement in his breathing and coughing pattern. No chest pain However and exam still has significant wheezing and history of ventilator oxygen via nasal cannula Echocardiogram showed ejection fraction of 30% with apical hypokinesia on 12/14/2021. Currently he is on Solu-Medrol 40 mg and IV Lasix 40 mg twice daily. Aspirin 81 mg added as well as losartan 25 mg 02/12/2022 Patient with only minimal improvement in his breathing pattern, however he is not significantly dyspneic at rest. Distal on 2 L oxygen via nasal cannula with saturation about94%. He has some leukocytosis at 17.7 but also he is on steroids. Recent echo showed ejection fraction 30% and patient was started on IV Lasix 40 mg twice daily per her cobbler sole. Also he is on Solu-Medrol 40 mg. Aldactone 25 mg added, and lisinopril dose increased to 50 mg daily Objective - Vital Signs Vital signs: Vital Signs Temp 98.2 F 02/12/22 08:18 Pulse 74 02/12/22 12:02 Resp 18 02/12/22 12:02 BP 157/98 02/12/22 12:02 Pulse Ox 94 L 02/12/22 12:02 FiO2 Intake & Output 02/11/22 02/12/22 02/12/22 18:59 06:59 18:59 Intake Total 860 20 128 Output Total 300 350 Balance 860 -280 -222 Weight 113.8 kg 112.1 kg Intake: IV 20 10 Invasive Line 2 20 10 Oral 860 118 Output: Urine 300 350 Other: Voiding Method Toilet Toilet Toilet # Voids 4 # Bowel Movements 1 - Exam GENERAL: The patient is alert and oriented x3, not in any acute distress. Well developed, well nourished. HEENT: Pupils are round and equally reacting to light. EOMI. No scleral icterus. No conjunctival pallor. Normocephalic, atraumatic. No pharyngeal erythema. No thyromegaly. CARDIOVASCULAR: S1 and S2 present. No murmurs, rubs, or gallops. -PULMONARY: Chest is clear to auscultation, bilateral expiratory wheezing ABDOMEN: Soft, nontender, nondistended, normoactive bowel sounds. No palpable organomegaly. MUSCULOSKELETAL: No joint swelling or deformity. -EXTREMITIES: No cyanosis, clubbing, bilateral pitting leg edema neurological examination did not reveal any focal deficits. SKIN: No rashes. no petechiae. - Labs CBC & Chem 7: 02/12/22 07:26 02/12/22 07:26 Labs: Abnormal Lab Results - Last 24 Hours (Table) 02/11/22 02/11/22 02/11/22 Range/Units 12:20 16:37 19:45 WBC (3.8-10.6) k/uL Neutrophils # (1.3-7.7) k/uL Lymphocytes # (1.0-4.8) k/uL BUN (9-20) mg/dL Glucose (74-99) mg/dL POC Glucose (mg/dL) 155 H 183 H 183 H (70-110) mg/dL Calcium (8.4-10.2) mg/dL 02/12/22 02/12/22 02/12/22 Range/Units 06:14 07:26 07:26 WBC 17.3 H (3.8-10.6) k/uL Neutrophils # 16.1 H (1.3-7.7) k/uL Lymphocytes # 0.5 L (1.0-4.8) k/uL BUN 33 H (9-20) mg/dL Glucose 182 H (74-99) mg/dL POC Glucose (mg/dL) 137 H (70-110) mg/dL Calcium 8.3 L (8.4-10.2) mg/dL 02/12/22 Range/Units 11:46 WBC (3.8-10.6) k/uL Neutrophils # (1.3-7.7) k/uL Lymphocytes # (1.0-4.8) k/uL BUN (9-20) mg/dL Glucose (74-99) mg/dL POC Glucose (mg/dL) 122 H (70-110) mg/dL Calcium (8.4-10.2) mg/dL Assessment and Plan Assessment: acute on chronic systolic CHF exacerbation Acute COPD exacerbation elevated troponin, elevated already prepared cobbler sole nicotine dependence History of thoracic aortic aneurysm Hypertension Hyperlipidemia History of Parkinson disease status post brain stimulator Plan: this is a pleasant 66 years old male who presents with COPD exacerbation Continue with steroids Continue with IV Lasix Continue with bronchodilator Pulmonary team consult. cardiology team consult. And continue with aspirin Continue with losartan and Aldactone Labs and medication were reviewed.. Continue same treatment. Continue with symptomatic treatment. Resume home medication. Monitor lytes and vitals. DVT and GI prophylaxis. Further recommendations as per clinical course of the patient DVT prophylaxis: Subcutaneous heparin GI Prophylaxis: Pepcid PT/OT: Pending Prognosis is guarded
--- NOTE | 2022-02-12 13:03 | P.PN ---
Subjective Progress Note Date: 02/12/22 Principal diagnosis: Shortness of breath. 66-year-old male patient with past medical history of COPD, not oxygen dependent at baseline, nicotine dependence, Parkinson's disease, hypertension, hyperlipidemia, thoracic aortic aneurysm, mild CAD, nonobstructive, mild nonischemic cardiomyopathy, and moderate to severe aortic insufficiency and mitral regurgitation. Patient had a recent hospitalization in December 2021 for acute exacerbation of COPD. On 02/10/2022 patient came into the emergency department with complaints of worsening shortness of breath. Patient states he quit smoking about 3 days ago. Has been using inhalers without any relief, patient has a cough with no phlegm production, no complaints of chest discomfort, no fever or chills. His chest x-ray showing no acute pulmonary process, his white count was within normal limits at 9.9, hemoglobin is 13.8, sodium is 140, potassium is 4.5, chloride is 108, BUN is 21, creatinine is 1.01, troponin is 0.086, proBNP was elevated at 9730, influenza A and B, COVID-19 PCR and RSV were all negative. Does have a positive JVD but no significant peripheral edema noted, his most recent echocardiogram showing reduced LV systolic function, a large segment of apical hypokinesis and ejection fraction of 30%. There was trace to mild mitral regurgitation, and trace to mild tricuspid regurgitation. Patient is not on any diuretics on a regular basis. He is on Symbicort and albuterol inhalers for his history of COPD he recently saw Dr. Dolan in the office in follow-up post hospital discharge. On 02/11/2022 patient seen in follow-up on medical surgical floor. He is breathing easier, he is on 2 L of oxygen pulse ox is 93%. No acute events overnight, no chest discomfort, no worsening dyspnea or cough. He continues on nebulized bronchodilators, IV steroids and IV Lasix. His had no fever or chills, no phlegm production, no hemoptysis or chest discomfort Progress note dated 02/12/2022. Currently, the patient is doing better. He feels better. He seen today in room 373. Is on 2 L nasal cannula. The patient is not receiving any IV fluids. Laboratory data from today includes a white count of 17.3, hemoglobin 14.3, hematocrit 45.5, and a platelet count of 201,000. Sodium 141, potassium 4.5, chlorides 106, CO2 27, BUN 33, and creatinine 1.09. Chest x-ray shows no acute process and cardiomegaly. Objective - Vital Signs Vital signs: Vital Signs Temp 98.2 F 02/12/22 08:18 Pulse 80 02/12/22 12:17 Resp 18 02/12/22 12:02 BP 157/98 02/12/22 12:02 Pulse Ox 94 L 02/12/22 12:02 FiO2 Intake & Output 02/11/22 02/12/22 02/12/22 18:59 06:59 18:59 Intake Total 860 20 128 Output Total 300 350 Balance 860 -280 -222 Weight 113.8 kg 112.1 kg Intake: IV 20 10 Invasive Line 2 20 10 Oral 860 118 Output: Urine 300 350 Other: Voiding Method Toilet Toilet Toilet # Voids 4 # Bowel Movements 1 - Exam No acute distress, oriented 3. Currently on 2 L. Flat in bed. No respiratory distress. HEENT examination is grossly unremarkable. Neck supple. Full range of motion. No adenopathy thyromegaly or neck vein distention. Cardiovascular examination reveals regular rhythm rate. S1-S2 normal. No S3 or S4. No discernible murmur noted. Heart rate 80 bpm. Lungs reveal mostly clear breath sounds. Minimal scattered rhonchi. An occasional wheeze is noted. No crackles. Breath sounds equal bilaterally. Saturation is 94% on 2 L. Abdomen soft bowel sounds are heard. No masses or tenderness. Extremities are intact. No cyanosis clubbing or edema. Skin is without rash or lesion. Neurologic examination is brief but nonfocal. - Labs CBC & Chem 7: 02/12/22 07:26 02/12/22 07:26 Labs: Abnormal Lab Results - Last 24 Hours (Table) 02/11/22 02/11/22 02/12/22 Range/Units 16:37 19:45 06:14 WBC (3.8-10.6) k/uL Neutrophils # (1.3-7.7) k/uL Lymphocytes # (1.0-4.8) k/uL BUN (9-20) mg/dL Glucose (74-99) mg/dL POC Glucose (mg/dL) 183 H 183 H 137 H (70-110) mg/dL Calcium (8.4-10.2) mg/dL 02/12/22 02/12/22 02/12/22 Range/Units 07:26 07:26 11:46 WBC 17.3 H (3.8-10.6) k/uL Neutrophils # 16.1 H (1.3-7.7) k/uL Lymphocytes # 0.5 L (1.0-4.8) k/uL BUN 33 H (9-20) mg/dL Glucose 182 H (74-99) mg/dL POC Glucose (mg/dL) 122 H (70-110) mg/dL Calcium 8.3 L (8.4-10.2) mg/dL Assessment and Plan Assessment: Acute exacerbation of COPD. Acute exacerbation of systolic congestive heart failure. Acute hypoxemic respiratory failure secondary to both COPD and CHF. Chronic nicotine dependence History of Parkinson's disease. Essential hypertension. Hyperlipidemia. Thoracic aortic aneurysm. CAD, mild. Nonischemic cardiomyopathy, with ejection fraction of 30%. Valvular heart disease, secondary to both moderate to severe aortic insuffi ciency and mitral regurgitation. Plan: Plan dated 02/12/2022. The patient appears to be doing better. The patient's on 2 L with adequate saturations. The patient is stable from the pulmonary standpoint for consideration of possible discharge. Patient should continue on current waldemar thing treatments, and also his diuretics and steroids. We will continue to follow make recommendations along the way. Prognosis is guarded. Time with Patient: Less than 30
--- NOTE | 2022-02-12 13:56 | P.PN ---
Subjective Patient is a pleasant 66-year-old male with a history of COPD, tobacco abuse, Parkinson's disease, hypertension, hyperlipidemia, thoracic aortic aneurysm, mild CAD by heart catheterization in 2018, nonischemic cardiac myopathy, moderate to severe aortic insufficiency however improved to mild to moderate but most recent echo 12/2021.He follows with Dr. Vee. Patient presents for continued shortness breath. He had been seen a proximally 6 weeks ago, 01/01/2022 with dyspnea and had been treated for heart failure with some improvement however has continued to have significant dyspnea with minimal exertion. Last hospitalization he did have continued mildly elevated troponins. States he has been compliant with his medications. He did quit smoking a proximally 6 days ago however has not really helped. He did have CT performed 02/05 outpatient for monitoring of his thoracic aortic aneurysm by Dr. Harrison. This showed stable aneurysm however interstitial findings consistent with early heart failure. Patient was started on IV Lasix on admission 02/12/2022 Patient seen and examined at bedside, he continues to shortness of breath has improved. He is on IV Lasix 40mg BID. Improving. Decrease in weight noted. Labs: Sodium 141, potassium 4.5, BUN 33, serum creatinine 1.09, mag 2.0 PHYSICAL EXAMINATION Vital signs reviewed. CONSTITUTIONAL: No apparent distress, chronically ill appearing HEENT: Head is normocephalic. Pupils are equal, round. No JVD. No carotid bruit. CHEST EXAMINATION: +decreased breath sounds at bases, + wheeze bilaterally HEART EXAMINATION: Regular rate and rhythm. S1, S2 heard. No murmurs, gallops or rub. ABDOMEN: Soft, nontender. Positive bowel sounds. EXTREMITIES: 2+ peripheral pulses, no lower extremity edema and no calf tenderness. NEUROLOGIC EXAMINATION: Patient is awake, alert and oriented x3. ASSESSMENT Acute on chronic =heart failure with reduced EF 30-35% on Echo 12/2021 Acute on chronic respiratory failure suspect component of heart failure as well as COPD COPD exacerbation Mildly elevated troponins, have been elevated in the past History of cardiomyopathy, previously nonischemic in the past Tobacco abuse Thoracic aortic aneurysm, stable by most recent CT 02/05 Aortic insufficiency, previous concern of moderate to severe however or mild to moderate by most recent echo Mild CAD by heart catheterization 2017 PLAN Continue IV Lasix 40mg BID Add spironolactone 25mg Daily Increase losartan 50mg Daily Continue metoprolol succinate Consider Entresto and Jardiance, likely transition as an outpatient Monitor renal function and electrolytes, I/os, daily weights Question low-compliance with low salt diet. Suspect main component of heart failure plus additional component of COPD and tobacco abuse. Further recommendations to follow. Nurse practitioner note has been reviewed by physician. Signing provider agrees with the documented findings, assessment, and plan of care. Objective - Vital Signs Vital signs: Vital Signs Temp 98.2 F 02/12/22 08:18 Pulse 84 02/12/22 08:33 Resp 18 02/12/22 08:18 BP 162/83 02/12/22 08:18 Pulse Ox 95 02/12/22 08:18 FiO2 Intake & Output 02/11/22 02/12/22 02/12/22 18:59 06:59 18:59 Intake Total 860 20 128 Output Total 300 350 Balance 860 -280 -222 Weight 113.8 kg Intake: IV 20 10 Invasive Line 2 20 10 Oral 860 118 Output: Urine 300 350 Other: Voiding Method Toilet Toilet # Voids 4 # Bowel Movements 1 - Labs CBC & Chem 7: 02/12/22 07:26 02/12/22 07:26 Labs: Abnormal Lab Results - Last 24 Hours (Table) 02/11/22 02/11/22 02/11/22 Range/Units 12:20 16:37 19:45 WBC (3.8-10.6) k/uL Neutrophils # (1.3-7.7) k/uL Lymphocytes # (1.0-4.8) k/uL BUN (9-20) mg/dL Glucose (74-99) mg/dL POC Glucose (mg/dL) 155 H 183 H 183 H (70-110) mg/dL Calcium (8.4-10.2) mg/dL 02/12/22 02/12/22 02/12/22 Range/Units 06:14 07:26 07:26 WBC 17.3 H (3.8-10.6) k/uL Neutrophils # 16.1 H (1.3-7.7) k/uL Lymphocytes # 0.5 L (1.0-4.8) k/uL BUN 33 H (9-20) mg/dL Glucose 182 H (74-99) mg/dL POC Glucose (mg/dL) 137 H (70-110) mg/dL Calcium 8.3 L (8.4-10.2) mg/dL
[2022-02-12 16:25] VITALS: BMI 35.4
[2022-02-12 16:37] LABS: Glucose,Whole Blood 166 mg/dL (70-110)
[2022-02-12 19:41] LABS: Glucose,Whole Blood 191 mg/dL (70-110)
[2022-02-12 21:39] LABS: Appearance,Urine Clear (Clear); Bilirubin,Urine Negative (Negative); Blood,Urine Negative (Negative); Color,Urine Light Yellow; Glucose,Urine (UA) Negative (Negative); Ketones,Urine Negative (Negative); Leukocyte Esterase,Urine Negative (Negative); Nitrite,Urine Negative (Negative); Protein,Urine Negative (Negative); Specific Gravity,Urine 1.011 (1.001-1.035); Urobilinogen,Urine <2.0 mg/dL (<2.0)
[2022-02-13 00:24] VITALS: RESP 18
[2022-02-13 06:15] LABS: Glucose,Whole Blood 132 mg/dL (70-110)
[2022-02-13] MEDS: INSULIN ASPART (NovoLOG) 100 UNIT/ML VIAL SQ SCH ×2 (06:23→12:00)
[2022-02-13] MEDS: IPRATROPIUM-ALBUTEROL 3 ML NEB INHALATION SCH ×2 (07:37→11:16)
[2022-02-13] MEDS: SYMBICORT 160-4.5 MCG INHALER INHALATION SCH (07:37)
[2022-02-13 08:45] VITALS: BP 156/95; TEMP 97.9
[2022-02-13] MEDS: METOPROLOL SUCCINATE (ER) 25 MG TAB.ER.24H PO SCH (08:45)
[2022-02-13] MEDS: methylPREDNISolone SOD SUCCI 40 MG/ML 1 ML VIAL IV SCH (08:46)
[2022-02-13] MEDS: ASPIRIN 81 MG PO SCH (08:46)
[2022-02-13] MEDS: SPIRONOLACTONE 25 MG TAB PO SCH (08:46)
[2022-02-13] MEDS: CARBIDOPA-LEVODOPA 25-100 MG 1 EACH TAB PO SCH ×2 (08:46→12:19)
[2022-02-13] MEDS ORDERED: FUROSEMIDE 40 MG TAB PO SCH (09:00)
[2022-02-13] MEDS ORDERED: LOSARTAN 50 MG TAB PO SCH (09:00)
[2022-02-13 09:33] LABS: African American GFR (CKD) >90 (>60 ml/min/1.73 sqM); Anion Gap 4 mmol/L; Blood Urea Nitrogen 33 mg/dL (9-20); Calcium 8.2 mg/dL (8.4-10.2); Carbon Dioxide 33 mmol/L (22-30); Chloride 103 mmol/L (98-107); Glucose 129 mg/dL (74-99); Magnesium 2.2 mg/dL (1.6-2.3); Non-African American GFR(CKD) 78 (>60 ml/min/1.73 sqM); Potassium 4.4 mmol/L (3.5-5.1); Sodium 140 mmol/L (137-145)
--- NOTE | 2022-02-13 10:42 | P.PN ---
Subjective Patient is a pleasant 66-year-old male with a history of COPD, tobacco abuse, Parkinson's disease, hypertension, hyperlipidemia, thoracic aortic aneurysm, mild CAD by heart catheterization in 2018, nonischemic cardiac myopathy, moderate to severe aortic insufficiency however improved to mild to moderate but most recent echo 12/2021.He follows with Dr. Vee. Patient presents for continued shortness breath. He had been seen a proximally 6 weeks ago, 01/01/2022 with dyspnea and had been treated for heart failure with some improvement however has continued to have significant dyspnea with minimal exertion. Last hospitalization he did have continued mildly elevated troponins. States he has been compliant with his medications. He did quit smoking a proximally 6 days ago however has not really helped. He did have CT performed 02/05 outpatient for monitoring of his thoracic aortic aneurysm by Dr. Harrison. This showed stable aneurysm however interstitial findings consistent with early heart failure. Patient was started on IV Lasix on admission 02/13/2022 Patient seen and examined at bedside, His shortness of breath has improved. His lungs are cleared He is on IV Lasix 40mg BID. Improving. Decrease in weight noted. Patient with 1.2 L urine output the past 24 hours Labs: Sodium 140, potassium 4.4, BUN 33, serum creatinine 1.0, magnesium 2.2 PHYSICAL EXAMINATION Vital signs reviewed. CONSTITUTIONAL: No apparent distress, chronically ill appearing HEENT: Head is normocephalic. Pupils are equal, round. No JVD. No carotid bruit. CHEST EXAMINATION: Clear to ausculation bilaterally HEART EXAMINATION: Regular rate and rhythm. S1, S2 heard. No murmurs, gallops or rub. ABDOMEN: Soft, nontender. Positive bowel sounds. EXTREMITIES: 2+ peripheral pulses, no lower extremity edema and no calf tenderness. NEUROLOGIC EXAMINATION: Patient is awake, alert and oriented x3. ASSESSMENT Acute on chronic =heart failure with reduced EF 30-35% on Echo 12/2021 Acute on chronic respiratory failure suspect component of heart failure as well as COPD COPD exacerbation Mildly elevated troponins, have been elevated in the past History of cardiomyopathy, previously nonischemic in the past Tobacco abuse Thoracic aortic aneurysm, stable by most recent CT 02/05 Aortic insufficiency, previous concern of moderate to severe however or mild to moderate by most recent echo Mild CAD by heart catheterization 2017 PLAN Transition to PO Lasix 40mg BID Continue spironolactone 25mg Daily losartan 50mg Daily, metoprolol succinate Consider Entresto and Jardiance, likely transition as an outpatient Question low-compliance with low salt diet. Suspect main component of heart failure plus additional component of COPD and tobacco abuse. From a cardiology perspective patient is stable and can be considered for discharge Follow up outpatient with Dr. Vee. Nurse practitioner note has been reviewed by physician. Signing provider agrees with the documented findings, assessment, and plan of care. Objective - Vital Signs Vital signs: Vital Signs Temp 97.9 F 02/13/22 08:44 Pulse 78 02/13/22 10:00 Resp 18 02/13/22 10:00 BP 156/95 02/13/22 08:44 Pulse Ox 92 L 02/13/22 08:44 FiO2 Intake & Output 02/12/22 02/13/22 02/13/22 18:59 06:59 18:59 Intake Total 468 Output Total 350 850 Balance 118 -850 Weight 112.1 kg 111.4 kg Intake: IV 10 Invasive Line 2 10 Oral 458 Output: Urine 350 850 Other: Voiding Method Toilet Toilet Toilet # Bowel Movements 1 - Labs CBC & Chem 7: 02/12/22 07:26 02/13/22 08:04 Labs: Abnormal Lab Results - Last 24 Hours (Table) 02/12/22 02/12/22 02/12/22 Range/Units 11:46 16:33 19:40 Carbon Dioxide (22-30) mmol/L BUN (9-20) mg/dL Glucose (74-99) mg/dL POC Glucose (mg/dL) 122 H 166 H 191 H (70-110) mg/dL Calcium (8.4-10.2) mg/dL 02/13/22 02/13/22 Range/Units 06:13 08:04 Carbon Dioxide 33 H (22-30) mmol/L BUN 33 H (9-20) mg/dL Glucose 129 H (74-99) mg/dL POC Glucose (mg/dL) 132 H (70-110) mg/dL Calcium 8.2 L (8.4-10.2) mg/dL
[2022-02-13] MEDS: SODIUM CHLORIDE 0.9% 1,000 ML IV SCH (11:31)
[2022-02-13 11:47] LABS: Glucose,Whole Blood 144 mg/dL (70-110)
--- NOTE | 2022-02-13 13:40 | P.EN ---
Patient will require a nebulizer to continue with DuoNeb's 4 times a day and when necessary to manage his COPD on discharge
--- NOTE | 2022-02-13 13:41 | P.PN ---
Subjective Progress Note Date: 02/13/22 Principal diagnosis: Shortness of breath. 66-year-old male patient with past medical history of COPD, not oxygen dependent at baseline, nicotine dependence, Parkinson's disease, hypertension, hyperlipidemia, thoracic aortic aneurysm, mild CAD, nonobstructive, mild nonischemic cardiomyopathy, and moderate to severe aortic insufficiency and mitral regurgitation. Patient had a recent hospitalization in December 2021 for acute exacerbation of COPD. On 02/10/2022 patient came into the emergency department with complaints of worsening shortness of breath. Patient states he quit smoking about 3 days ago. Has been using inhalers without any relief, patient has a cough with no phlegm production, no complaints of chest discomfort, no fever or chills. His chest x-ray showing no acute pulmonary process, his white count was within normal limits at 9.9, hemoglobin is 13.8, sodium is 140, potassium is 4.5, chloride is 108, BUN is 21, creatinine is 1.01, troponin is 0.086, proBNP was elevated at 9730, influenza A and B, COVID-19 PCR and RSV were all negative. Does have a positive JVD but no significant peripheral edema noted, his most recent echocardiogram showing reduced LV systolic function, a large segment of apical hypokinesis and ejection fraction of 30%. There was trace to mild mitral regurgitation, and trace to mild tricuspid regurgitation. Patient is not on any diuretics on a regular basis. He is on Symbicort and albuterol inhalers for his history of COPD he recently saw Dr. Dolan in the office in follow-up post hospital discharge. On 02/11/2022 patient seen in follow-up on medical surgical floor. He is breathing easier, he is on 2 L of oxygen pulse ox is 93%. No acute events overnight, no chest discomfort, no worsening dyspnea or cough. He continues on nebulized bronchodilators, IV steroids and IV Lasix. His had no fever or chills, no phlegm production, no hemoptysis or chest discomfort Progress note dated 02/12/2022. Currently, the patient is doing better. He feels better. He seen today in room 373. Is on 2 L nasal cannula. The patient is not receiving any IV fluids. Laboratory data from today includes a white count of 17.3, hemoglobin 14.3, hematocrit 45.5, and a platelet count of 201,000. Sodium 141, potassium 4.5, chlorides 106, CO2 27, BUN 33, and creatinine 1.09. Chest x-ray shows no acute process and cardiomegaly. Progress note dated 02/13/2022. 66-year-old male seen in room 373. He's not receiving any IV fluids. He is on 2 L nasal cannula. The patient has walked up and down the hallway, and does not desaturate. The nurse asked me whether or not the patient could be discharged. I said yes, but the primary service has to actually discharge the patient. I did ask the nurse to evaluate the patient for home O2. Lab data today includes a glucose of 144, sodium 140, potassium 4.4, chlorides 103, CO2 33, BUN 33, and creatinine 1.01. No chest x-ray today. Objective - Vital Signs Vital signs: Vital Signs Temp 97.9 F 02/13/22 08:44 Pulse 84 02/13/22 12:17 Resp 18 02/13/22 12:17 BP 156/95 02/13/22 12:17 Pulse Ox 92 L 02/13/22 12:17 FiO2 Intake & Output 02/12/22 02/13/22 02/13/22 18:59 06:59 18:59 Intake Total 468 Output Total 350 850 Balance 118 -850 Weight 112.1 kg 111.4 kg Intake: IV 10 Invasive Line 2 10 Oral 458 Output: Urine 350 850 Other: Voiding Method Toilet Toilet Toilet # Bowel Movements 1 - Exam No acute distress, oriented 3. Currently on 2 L. Flat in bed. No respiratory distress. HEENT examination is grossly unremarkable. Neck supple. Full range of motion. No adenopathy thyromegaly or neck vein distention. Cardiovascular examination reveals regular rhythm rate. S1-S2 normal. No S3 or S4. No discernible murmur noted. Heart rate 79 bpm. Lungs reveal mostly clear breath sounds. Minimal scattered rhonchi. An occasional wheeze is noted. No crackles. Breath sounds equal bilaterally. Saturation is 94% on 2 L. Room air saturation, while walking, is 91%. Abdomen soft bowel sounds are heard. No masses or tenderness. Extremities are intact. No cyanosis clubbing or edema. Skin is without rash or lesion. Neurologic examination is brief but nonfocal. - Labs CBC & Chem 7: 02/12/22 07:26 02/13/22 08:04 Labs: Abnormal Lab Results - Last 24 Hours (Table) 02/12/22 02/12/22 02/13/22 Range/Units 16:33 19:40 06:13 Carbon Dioxide (22-30) mmol/L BUN (9-20) mg/dL Glucose (74-99) mg/dL POC Glucose (mg/dL) 166 H 191 H 132 H (70-110) mg/dL Calcium (8.4-10.2) mg/dL 02/13/22 02/13/22 Range/Units 08:04 11:45 Carbon Dioxide 33 H (22-30) mmol/L BUN 33 H (9-20) mg/dL Glucose 129 H (74-99) mg/dL POC Glucose (mg/dL) 144 H (70-110) mg/dL Calcium 8.2 L (8.4-10.2) mg/dL Assessment and Plan Assessment: Acute exacerbation of COPD. Acute exacerbation of systolic congestive heart failure. Acute hypoxemic respiratory failure secondary to both COPD and CHF. Chronic nicotine dependence History of Parkinson's disease. Essential hypertension. Hyperlipidemia. Thoracic aortic aneurysm. CAD, mild. Nonischemic cardiomyopathy, with ejection fraction of 30%. Valvular heart disease, secondary to both moderate to severe aortic insufficiency and mitral regurgitation. Plan: Plan dated 02/12/2022. The patient appears to be doing better. The patient's on 2 L with adequate saturations. The patient is stable from the pulmonary standpoint for consideration of possible discharge. Patient should continue on current breathing treatments, and also his diuretics and steroids. We will continue to follow make recommendations along the way. Prognosis is guarded. Plan dated 02/13/2022. The patient was admitted on February 10 the emergency department. Since being in the hospital, the patient's doing much better. We did evaluate him for home oxygen. He did not qualify. Walking up and down the hallway, his saturation was only 91% at the lowest. Additional recommendations and suggestions are forthcoming. Labs, x-rays, medications are reviewed. Prognosis is guarded. We will continue to see the patient should he not be discharged home today. Time with Patient: Less than 30
[2022-02-13] MEDS ORDERED: FAMOTIDINE 20 MG TAB PO STA (14:36)
[2022-02-13] MEDS ORDERED: PANTOPRAZOLE 40 MG/10 ML VIAL IVP SCH (15:00)
[2022-02-13 15:23] VITALS: PULSE 78
[2022-02-13] MEDS ORDERED: FAMOTIDINE 20 MG TAB PO SCH (21:00)
--- NOTE | 2022-02-14 02:06 | P.DS ---
Providers Date of admission: 02/10/22 09:21 Expected date of discharge: 02/13/22 Attending physician: Brenda Sánchez Consults: 02/10/22 09:19 Consult Physician Routine Consulting Provider: Racheal Driver Consult Reason/Comments: copd Do you want consulting provider notified?: Yes Consult Physician Routine Consulting Provider: Juany Bingham Consult Reason/Comments: elevated troponin, chf Do you want consulting provider notified?: Yes Primary care physician: Darius uGo Hospital Course: Final diagnosis acute on chronic systolic CHF exacerbation, ef is 35% Acute COPD exacerbation elevated troponin continued ongoing nicotine dependence History of thoracic aortic aneurysm Hypertension Hyperlipidemia History of Parkinson disease status post brain stimulator Discharge disposition Patient is being discharged in a stable condition with guarded prognosis to home. Patient will follow-up with Dr. Guo in the outpatient setting upon discharge. Patient is to also follow up with cardiology and pulmonary as scheduled. Patient is to continue with a pred taper and duonebs on discharge. nTotal time taken is greater than 35 minutes. Hospital course This is a 66-year-old male who was recently admitted with chf and component of COPD exacerbation and was being monitored by pulm and cardiology. Recommend close outpatient follow up. Recommend to continue with prednisone taper and duoneb treatments. Case management has arranged for a nebulizer on discharge. Patient not requiring oxygen on discharge. Currently no reports of chest pain, shortness of breath, or palpitations. Patient is afebrile. Patient having some heartburn and takes prilosec at home. Recommend pepcid BID for 1-2 weeks. No reports of nausea or vomiting and patient is tolerating diet. Patient will be discharged home today. Guarded prognosis. Physical exam: Gen: This is a 66 year old who is awake, alert and oriented x3, obese HEENT: Head is atraumatic, normocephalic. Pupils equal, round. Sclerae is anicteric. NECK: Supple. No JVD. No lymphadenopathy. No thyromegaly. LUNGS: diminished breath sounds bilaterally. occasional expiratory wheezes and some rhonchi noted. No intercostal retractions. HEART: Regular rate and rhythm. No murmur. ABDOMEN: Soft. Bowel sounds are present. obese. No masses. No tenderness. EXTREMITIES: No pedal edema. No calf tenderness. NEUROLOGICAL: Patient is awake, alert and oriented x3. Cranial nerves 2 through 12 are grossly intact. Please refer to medication reconciliation sheet for a list of medications. The impression and plan of care has been dictated by Rebekah Friedman, Nurse Practitioner as directed. Dr. Mo MD I have performed a history and examination and MDM of this patient, discussed the same with the dictator, and agree with the dictator's assessment and plan as written ,documented as a scribe. Based on total visit time, I have performed more than 50% of the visit. Patient Condition at Discharge: Fair Plan - Discharge Summary Discharge Rx Participant: Yes New Discharge Prescriptions: New Losartan [Cozaar] 50 mg PO DAILY #30 tab Ipratropium-Albuterol Nebulize [Duoneb 0.5 mg-3 mg/3 ml Soln] 3 ml INHALATION RT-QID 30 Days #90 each Ipratropium-Albuterol Nebulize [Duoneb 0.5 mg-3 mg/3 ml Soln] 3 ml INHALATION RT-Q2H PRN each PRN Reason: Shortness Of Breath Or Wheezing Spironolactone [Aldactone] 25 mg PO DAILY #30 tab Aspirin 81 mg PO DAILY #30 tab Furosemide [Lasix] 40 mg PO BID@0900,1600 #60 tab Famotidine [Pepcid] 20 mg PO BID #60 tablet predniSONE 10 mg PO DIRECTED #30 tab Continue Omeprazole 20 mg PO DAILY Carbidopa/Levodopa [Sinemet 25-100 mg Tablet] 1.5 tab PO QID Metoprolol Succinate (ER) [Toprol XL] 25 mg PO DAILY #30 tab Albuterol Inhaler [Ventolin Hfa Inhaler] 2 puff INHALATION RT-Q4H #1 each Budesonide-Formot 160-4.5 Mcg [Symbicort 160-4.5 Mcg Inhaler] 2 puff INHALATION RT-BID #1 each Tamsulosin [Flomax] 0.4 mg PO HS #30 cap Discontinued Terazosin HCl 10 mg PO HS amLODIPine [Norvasc] 5 mg PO BID #60 tab Discharge Medication List Carbidopa/Levodopa [Sinemet 25-100 mg Tablet] 1.5 tab PO QID 12/31/21 [History] Omeprazole 20 mg PO DAILY 12/31/21 [History] Albuterol Inhaler [Ventolin Hfa Inhaler] 2 puff INHALATION RT-Q4H #1 each 01/02/22 [Rx] Budesonide-Formot 160-4.5 Mcg [Symbicort 160-4.5 Mcg Inhaler] 2 puff INHALATION RT-BID #1 each 01/02/22 [Rx] Metoprolol Succinate (ER) [Toprol XL] 25 mg PO DAILY #30 tab 01/02/22 [Rx] Tamsulosin [Flomax] 0.4 mg PO HS #30 cap 01/14/22 [Rx] Aspirin 81 mg PO DAILY #30 tab 02/13/22 [Rx] Famotidine [Pepcid] 20 mg PO BID #60 tablet 02/13/22 [Rx] Furosemide [Lasix] 40 mg PO BID@0900,1600 #60 tab 02/13/22 [Rx] Ipratropium-Albuterol Nebulize [Duoneb 0.5 mg-3 mg/3 ml Soln] 3 ml INHALATION RT-Q2H PRN each 02/13/22 [Rx] Ipratropium-Albuterol Nebulize [Duoneb 0.5 mg-3 mg/3 ml Soln] 3 ml INHALATION RT-QID 30 Days #90 each 02/13/22 [Rx] Losartan [Cozaar] 50 mg PO DAILY #30 tab 02/13/22 [Rx] Spironolactone [Aldactone] 25 mg PO DAILY #30 tab 02/13/22 [Rx] predniSONE 10 mg PO DIRECTED #30 tab 02/14/22 [Rx] Follow up Appointment(s)/Referral(s): [facility] [NON-STAFF] - [facility] [REFERRING] - Trent Vee DO [STAFF PHYSICIAN] - 02/19/22 10:30 am [facility] [NON-STAFF] - (Supplied nebulizer) Cali Dolan DO [Family Provider] - 02/27/22 9:30 am Darius Guo DO [Primary Care Provider] - 02/20/22 9:30 am Patient Instructions/Handouts: Heart Failure (DC), COPD (Chronic Obstructive Pulmonary Disease) (DC) Activity/Diet/Wound Care/Special Instructions: Activity Limited until follow-up Follow-up with her primary care provider also pulmonary outpatient Follow-up cardiology outpatient Continue taking medications as prescribed Discharge/Stand Alone Forms: Who Do I Call?, Community Resources, [employer] Discharge Disposition: HOME SELF-CARE
== END 2022-02-13 15:24 | disposition home or self-care (01) | DRG 291 ==
LOC: EC 07:54 → 3SCARD 09:21
PROVIDERS: ADMIT Hospitalist; ATTEND Hospitalist
DX: I11.0 Hypertensive heart disease with heart failure (principal); I50.23 Acute on chronic systolic (congestive) heart failure; J96.21 Acute and chronic respiratory failure with hypoxia; J44.1 Chronic obstructive pulmonary disease with (acute) exacerbation; I71.2 Thoracic aortic aneurysm, without rupture; I25.10 Atherosclerotic heart disease of native coronary artery without angina pectoris; I08.0 Rheumatic disorders of both mitral and aortic valves; I42.8 Other cardiomyopathies; G20 Parkinson's disease; R77.8 Other specified abnormalities of plasma proteins; E78.5 Hyperlipidemia, unspecified; F17.210 Nicotine dependence, cigarettes, uncomplicated; Z20.822 Contact with and (suspected) exposure to COVID-19; Z79.51 Long term (current) use of inhaled steroids; Z79.899 Other long term (current) drug therapy; Z82.49 Family history of ischemic heart disease and other diseases of the circulatory system; Z96.82 Presence of neurostimulator; E66.9 Obesity, unspecified; Z68.35 Body mass index [BMI] 35.0-35.9, adult; Z86.010 Personal history of colon polyps; Z86.718 Personal history of other venous thrombosis and embolism; Z86.711 Personal history of pulmonary embolism
CPT/HCPCS: 36415; 71046; 80048; 81003; 83735; 83880; 84484; 85025; 87636; 93005; 94640; 96374; 96375; 99285

== ENCOUNTER → 2022-02-23 | Outpatient (CLI) | payer OTHER ==
[2022-02-23 14:13] LABS: African American GFR (CKD) >90 (>60 ml/min/1.73 sqM); Blood Urea Nitrogen 33 mg/dL (9-20); Non-African American GFR(CKD) 79 (>60 ml/min/1.73 sqM)
--- NOTE | 2022-02-23 18:56 | CT ---
EXAMINATION TYPE: CT adrenal glands wo/w con DATE OF EXAM: 02/23/2022 COMPARISON: [id number] INDICATION: Adrenal Nodule DLP: 2473.3 mGycm, Automated exposure control for dose reduction was used. CONTRAST: 70 ML mL of Isovue 300. Study performed without Oral Contrast TECHNIQUE: Axial images were obtained from above the diaphragm to the pubic rami in the axial plane a t 5 mm thick sections. Reconstructed images are reviewed on the computer in the coronal plane. FINDINGS: Limited CT sections are obtained the lung bases. The lung bases are clear. CT ABDOMEN: Dynamic scanning was performed through the left adrenal gland. Left adrenal gland measure s 3.8 cm. Adrenal gland measures 5 Hounsfield units precontrast. Immediate postcontrast measures 26 H ounsfield units. Delayed images through the left adrenal gland measure 15 Hounsfield units. The relat miriam washout of 42% this is suggestive for adenoma. The absolute washout of 52% however is somewhat in determinate however the initial low density appears suggestive for adenoma. Liver: Normal Spleen: Normal Pancreas: Normal Adrenal glands: Right adrenal gland appears normal. Gallbladder: Normal Kidneys: No masses are evident. No hydronephrosis is present. Small cortical cysts may be in the po sterior left kidney. Delayed images were obtained through the kidneys, which remain unremarkable. Aorta: Vascular calcification is within the aorta. Periumbilical hernias in the anterior abdominal wall with an opening of 2.7 cm. No loops of bowel are involved. Inferior vena cava: Normal. IMPRESSIONS: 1. Findings are suggestive for left adrenal adenoma.
== END | disposition home or self-care (01) ==
LOC: RADCTMAIN 13:23
PROVIDERS: ATTEND Urology
DX: D35.00 Benign neoplasm of unspecified adrenal gland (principal)
CPT/HCPCS: 82565; 84520; 36415; 74170; Q9967 ×2

== ENCOUNTER → 2022-03-02 | Outpatient (CLI) | payer OTHER ==
[2022-03-02 15:11] LABS: Prostate Specific Antigen 1.1 ng/mL (0.00-4.50)
== END | disposition home or self-care (01) ==
LOC: LABWHC1 09:48
PROVIDERS: ATTEND Urology
DX: D35.00 Benign neoplasm of unspecified adrenal gland (principal); N40.1 Benign prostatic hyperplasia with lower urinary tract symptoms
CPT/HCPCS: 36415; 82088; 82533; 83835; 84153; 84244